=== PATIENT | male | born 1950 | race Caucasian/White ===

== ENCOUNTER 2021-12-07 19:22 | Emergency (ER) | payer MEDICARE, OTHER, SELFPAY ==
[2021-12-07 19:23] VITALS: BP 122/71; PULSE 74; RESP 16; TEMP 36.6; O2SAT 93; BMI 18.3
[2021-12-07 19:33] VITALS: BMI 18.8
[2021-12-07 20:05] LABS: Bedside Glucose 104 mg/dL (74-106)
--- NOTE | 2021-12-07 20:21 | EKG12_ITS ---
Test Reason : DYSRHYTHMIA Blood Pressure : / mmHG Vent. Rate : 069 BPM Atrial Rate : 069 BPM P-R Int : 256 ms QRS Dur : 080 ms QT Int : 382 ms P-R-T Axes : 063 075 061 degrees QTc Int : 409 ms Sinus rhythm with 1st degree A-V block Otherwise normal ECG Confirmed by ANSHU ABRAHAM, ADRIANA ([id number]), production editor ONEAL DAILY ([id number]) on 12/09/2021 10:00:48 AM Referred By: MARINE Confirmed By:INDIRA BRASHER MD
--- NOTE | 2021-12-07 20:22 | EDS_ITS ---
HPI History of Present Illness Chief Complaint: Dizziness Informant: patient and spouse/S.O. Narrative Narrative: Patient had an episode today of dizziness. He states he was lying in the bed. There were dogs there. He turned quickly to the right and then quickly to the left. After he did that he said the whole room was spinning around. It is now stopped. He had no other symptoms with this. He did not get nauseated. No numbness tingling weakness. No chest pain. No presyncope or lightheadedness. No headache. He has not had this before. He is on multiple meds. He has diabetes COPD. He is on oxygen. But he is not having any pulmonary complaints. He is not on any blood thinners. None of his meds are new or different. He feels perfectly fine at this time. PFSH PFSH Allergy/AdvReac Type Severity Reaction Status Date / Time bee venom protein (honey bee) Allergy Swelling Verified 12/07/21 19:34 fire ant Allergy Other Verified 12/07/21 19:34 tetanus and diphtheria Allergy Swelling Verified 12/07/21 19:34 toxoids codeine AdvReac Upset Verified 12/07/21 19:34 Stomach Social History Smoking Status: Current every day smoker tobacco type: cigarettes ROS ROS ED Constitutional Constitutional ED: Denies chills, fever(s) or subjective Eyes Eyes: Denies blurry vision, change in vision or diplopia ENT ENT ED: Denies rhinorrhea or sore throat Cardiovascular Cardiovascular: Denies chest pain, palpitations or racing heartbeat Respiratory/Chest Respiratory/Chest: Denies cough or dyspnea Gastrointestinal Gastrointestinal: Denies nausea or vomiting Genitourinary Genitourinary ED: Denies dysuria Musculoskeletal Musculoskeletal: Denies back pain or neck pain Integumentary Denies abscess, Abrasions or rash Neurologic Neurologic: Reports other Details: See history of present illness ; Denies headache(s), paresthesias or weakness Endocrine Endocrinology: Denies polydipsia or polyuria Hematologic/Lymphatic Hematologic/Lymphatic: Denies easy bleeding or easy bruising Allergic/Immunologic Allergic/Immunologic ED: Denies urticaria EXAM Physical Exam Const Vital Signs: 12/07/21 19:23 12/07/21 19:41 Temperature 97.9 F Temperature Source Axillary Pulse Rate 74 Respiratory Rate 16 Respiratory Pattern Normal Blood Pressure 122/71 H Blood Pressure Mean 88 Pulse Ox 93 Oxygen Delivery Method Nasal Cannula Oxygen Flow Rate (L/min) 3 Positive well nourished and well developed Constitutional Narrative: Patient is overall thin. Denies recent weight loss though. General Appearance ED: well developed and NAD HEENT Reports moist mucous membranes Eyes EOMs intact bilaterally Eyes Narrative: Patient can look left and right. I can have them turn head completely left and right. He states his symptoms are completely gone now. Neck supple and no JVD Resp normal respiratory effort Auscultation: Negative for rales, rhonchi or wheezes Cardio regular rate and regular rhythm GI normal to inspection, nondistended, normoactive bowel sounds and non-tender Back/Spine no CVA tenderness Extremity Extremity Narrative: Trace edema at the ankles which he states is chronic and unchanged Neuro oriented x3 Neuro Narrative: Patient is awake alert and oriented x3. Coordination. Normal sensation and strength. I can have him sit up turn left and right and none of this reproduces his symptoms at this time. He states his symptoms are resolved. Sensorium / Orientation: alert Psych mental status grossly normal Skin no rashes or lesions noted MDM MDM MDM Narrative Medical decision making narrative: Patient CBC shows normal hemoglobin white count and platelets. Electrolytes are overall unremarkable. Glucose is only minimally up. CT shows no acute process. Patient has been up walking to the bathroom. He feels totally asymptomatic. I think we can get him home. We did discuss about multiple symptoms that would bring him back. They are okay with this plan and he wants to go home. Lab Data Attestation: I reviewed the patient's lab results. Labs: Laboratory Results - last 24 hr 12/07/21 12/07/21 12/07/21 19:38 20:35 20:35 WBC 6.2 RBC 3.93 L Hgb 13.4 Hct 40.0 MCV 101.8 H MCH 34.1 H MCHC 33.5 RDW Std Deviation 61.2 H RDW Coeff of Sulema 16.1 H Plt Count 267 MPV 8.7 Immature Gran % (Auto) 0.300 Neut % (Auto) 68.1 Lymph % (Auto) 19.8 Gregg % (Auto) 10.4 H Eos % (Auto) 0.7 Baso % (Auto) 0.7 Absolute Neuts (auto) 4.2 Absolute Lymphs (auto) 1.22 Nucleated RBC % 0 Sodium 138 Potassium 4.6 Chloride 102 Carbon Dioxide 32.0 Anion Gap 4 L BUN 25 H Creatinine 0.91 Estim Creat Clear Calc 59.00 Est GFR (MDRD) Af Amer 105 Est GFR (MDRD) Non-Af 86 BUN/Creatinine Ratio 27.4 H Glucose 114 H Calcium 8.9 POC Glucose 104 Radiography Diagnostic Testing: Clinical Impression(s) from Imaging Studies Brain CT 12/07/21 20:45 IMPRESSION: No acute findings. Microvascular ischemic changes. Atrophy. Electronically Signed: Natalie Mckeon MD at 21:14 EDT Reading Location ID and State: [id number] / Tel , Service support , Discharge Plan Triage Chief Complaint: Dizziness ED Provider: Dirk Melton Dx/Rx/DC Orders Clinical Impression: Vertigo Instructions: ED BPV Vertigo Primary Care Provider: Care Physician,No Primary Referrals: Zafar Mir MD [Med Staff - Digital Developer] - 3-5 Days NOT,DEFINED [Non-Staff] - Disposition Disposition: Home, Self Care
[2021-12-07 20:42] LABS: Absolute Lymphocyte Count 1.22 X10^3/uL (0.83-4.51); Absolute Neutrophil Count 4.2 X10^3/uL (2.0-7.7); Basophil# 0.04 X10^3/uL; Basophil% 0.7 % (0-1); Eosinophil# 0.04 X10^3/uL; Eosinophils% 0.7 % (0-5); Hemoglobin 13.4 g/dL (13.0-16.5); Lymphocyte # 1.22 X10^3/ul (0.83-4.51); Lymphocyte % 19.8 % (19-41); Mean Corp Hgb Conc 33.5 g/dL (32-36); Mean Corpuscular Hgb 34.1 pg (27.0-32.0); Mean Corpuscular Volume 101.8 fL (80-94); Mean Platelet Vol. 8.7 fl (6.2-12.0); Monocyte# 0.64 X10^3/uL; Monocyte% 10.4 % (0-10); NRBC Flagged by Analyzer 0 % (0-5); Neutrophil # 4.19 X10^3/uL (2.7-7.7); Neutrophil % 68.1 % (47-70); Platelet Count 267 K/mm3 (150-450); RBC Distribution Width CV 16.1 % (11.6-14.6); RBC Distribution Width SD 61.2 fl (35.1-43.9); Red Blood Count 3.93 M/mm3 (4.6-6.2); White Blood Count 6.2 K/mm3 (4.4-11.0)
--- NOTE | 2021-12-07 20:45 | CT_ITS ---
STUDY: CT BRAIN WITHOUT CONTRAST REASON FOR EXAM: Male, 71 years old. Dizzy RADIATION DOSAGE (If Supplied By Facility): CTDIvol = ( 44.99 ) mGy, DLP = ( 829.85 ) mGycm TECHNIQUE: Transaxial CT imaging of the brain was performed without administration of intravenous contrast material. Individualized dose optimization techniques were used for this CT. COMPARISON: No relevant priors. FINDINGS: Normal soft tissue structures. Normal calvarium. There is mild cerebral atrophy with widening of the extra-axial spaces and ventricular dilatation. There are areas of decreased attenuation within the white matter tracts of the supratentorial brain, consistent with microvascular disease changes. There is no intracranial hemorrhage. There are no findings of an acute ischemic infarction. Normal visualized paranasal sinuses. CT/Brain/Head without Contrast IMPRESSION: No acute findings. Microvascular ischemic changes. Atrophy. Electronically Signed: Natalie Mckeon MD at 21:14 EDT Reading Location ID and State: [id number] / Tel , Service support ,
[2021-12-07 21:21] LABS: Anion Gap 4 (5-15); BUN 25 mg/dL (7-18); BUN/Creat Ratio 27.4 RATIO (10-20); Calcium,Total 8.9 mg/dL (8.5-10.1); Chloride 102 mmol/L (98-107); Creatinine, Serum 0.91 mg/dL (0.70-1.30); EST Glomerular Filtration Rate 86 mL/min (>60); Est Glom Filt Rate - Afr Amer 105 mL/min (>60); Glucose 114 mg/dL (74-106); Potassium 4.6 mmol/L (3.5-5.1); Sodium Level 138 mmol/L (136-145)
[2021-12-07 22:23] VITALS: PULSE 71; RESP 18; O2SAT 97
== END 2021-12-07 22:23 | disposition home or self-care (01) ==
PROVIDERS: Emergency Provider Emergency Medicine; Visit Provider Emergency Medicine
DX: R42 Dizziness and giddiness (principal); J44.9 Chronic obstructive pulmonary disease, unspecified; E11.9 Type 2 diabetes mellitus without complications; F17.210 Nicotine dependence, cigarettes, uncomplicated
CPT/HCPCS: 70450; 80048; 82962; 85025; 93005; 99282; A4216

== ENCOUNTER → 2021-12-20 | Outpatient (CLI) | payer MEDICARE, OTHER, SELFPAY ==
[2021-12-20 17:09] LABS: Absolute Lymphocyte Count 1.81 X10^3/uL (0.83-4.51); Absolute Neutrophil Count 3.8 X10^3/uL (2.0-7.7); Basophil# 0.03 X10^3/uL; Basophil% 0.5 % (0-1); Eosinophil# 0.08 X10^3/uL; Eosinophils% 1.3 % (0-5); Hematocrit 42.9 % (40-54); Hemoglobin 14.3 g/dL (13.0-16.5); Lymphocyte # 1.81 X10^3/ul (0.83-4.51); Lymphocyte % 28.3 % (19-41); Mean Corp Hgb Conc 33.3 g/dL (32-36); Mean Corpuscular Hgb 34.1 pg (27.0-32.0); Mean Corpuscular Volume 102.4 fL (80-94); Mean Platelet Vol. 9.2 fl (6.2-12.0); Monocyte# 0.68 X10^3/uL; Monocyte% 10.6 % (0-10); NRBC Flagged by Analyzer 0 % (0-5); Neutrophil # 3.78 X10^3/uL (2.7-7.7); Neutrophil % 59.1 % (47-70); Platelet Count 245 K/mm3 (150-450); RBC Distribution Width CV 14.3 % (11.6-14.6); RBC Distribution Width SD 54.3 fl (35.1-43.9); Red Blood Count 4.19 M/mm3 (4.6-6.2); White Blood Count 6.4 K/mm3 (4.4-11.0)
[2021-12-20 17:53] LABS: ALB/GLOB Ratio 0.7 RATIO (0.9-2.4); AST(SGOT) 27 U/L (15-37); Alanine Aminotransfer ALT/SGPT 59 U/L (16-61); Albumin, Serum 3.2 g/dL (3.2-5.0); Alkaline Phosphatase 88 U/L (45-117); Anion Gap 6 (5-15); BUN 22 mg/dL (7-18); BUN/Creat Ratio 28.6 RATIO (10-20); Calcium,Total 8.9 mg/dL (8.5-10.1); Chloride 98 mmol/L (98-107); Creatinine, Serum 0.77 mg/dL (0.70-1.30); EST Glomerular Filtration Rate 105 mL/min (>60); Est Glom Filt Rate - Afr Amer 127 mL/min (>60); Globulin 4.3 g/dL (2.2-4.2); Glucose 89 mg/dL (74-106); Protein, Total 7.5 g/dL (6.4-8.2); Sodium Level 136 mmol/L (136-145); Thyroid Stim Hormone (TSH) 0.85 uIU/mL (0.358-3.74)
[2021-12-20 18:49] LABS: Hepatitis C Antibody Non-Reactive (Nonreactive); Vitamin D,25 Hydroxy 56.7 ng/mL
== END | disposition home or self-care (01) ==
LOC: POLAB3 14:28
PROVIDERS: PCP Family Medicine Geriatric Medicine; Visit Provider Family Medicine Geriatric Medicine
DX: E55.9 Vitamin D deficiency, unspecified (principal); R53.83 Other fatigue; Z13.89 Encounter for screening for other disorder
CPT/HCPCS: 36415; 80053; 82306; 84443; 85025; 86803

== ENCOUNTER 2021-12-30 18:54 | Emergency (ER) | payer MEDICARE, OTHER, SELFPAY ==
[2021-12-30 18:55] VITALS: BP 147/83; PULSE 90; RESP 16; TEMP 35.7; O2SAT 98; BMI 18.8
[2021-12-30 19:45] LABS: Mucous, Urine 0 SEEN /hpf (<or=2+)
[2021-12-30 19:48] LABS: Color, Urine Yellow (Yellow); Glucose, Dipstick Normal (Normal); Ketone-Dipstick 5 mg/dl (Negative); Leukocyte Esterase-Dipstick 500 /ul (Negative); Nitrite-Dipstick Positive (Negative); Occult Blood-Urine 250 /ul (Negative); Protein-Dipstick 100 mg/dl (Negative); Urine Bilirubin Dipstick Negative (Negative); Urine Clarity Cloudy (Clear); Urine Urobilinogen Normal (Normal)
[2021-12-30 19:58] LABS: Bacteria 4+ /hpf (None Seen); Red Blood Cells-Urine 10-25 SEEN /hpf (0-5); Squamous Epithelial Cells - UA 0-5 SEEN /hpf (0-5); White Blood Cells >100 SEEN /hpf (0-5)
[2021-12-30 19:59] LABS: Triple Phosphate Crystals Ur 2+ /hpf (<or=1+)
[2021-12-30] MEDS: Cephalexin 250 MG Capsule 500 MG PO (20:35)
--- NOTE | 2021-12-30 20:42 | EDS_ITS ---
HPI History of Present Illness Chief Complaint: Complaint Narrative Narrative: Patient with past medical history of tremors, on buspirone presents with urinary frequency that he has had for the last few days. He states he also has burning with urination. No fevers or chills. No nausea or vomiting. No other symptoms. PFSH PFSH Medical History COPD (chronic obstructive pulmonary disease) CPAP (continuous positive airway pressure) dependence Depression Diabetes Kidney stones Sleep apnea Smoker Home Medications cephalexin 500 mg capsule 500 mg PO TID #21 caps 12/30/21 [Rx Last Taken Unknown] Allergy/AdvReac Type Severity Reaction Status Date / Time bee venom protein (honey bee) Allergy Swelling Verified 12/30/21 18:54 fire ant Allergy Other Verified 12/30/21 18:54 tetanus and diphtheria Allergy Swelling Verified 12/30/21 18:54 toxoids codeine AdvReac Upset Verified 12/30/21 18:54 Stomach Social History Smoking Status: Current every day smoker tobacco type: cigarettes ROS ROS ED ROS Narrative Constitutional: No fever, no chills. HEENT: No sore throat. No neck pain. No loss of vision. No rhinorrhea. Cardiovascular: No chest pain. No palpitations. No pedal edema. Respiratory: No cough, no shortness of breath. Abdominal: No abdominal pain. No nausea. No vomiting. Genitourinary: Urinary frequency. Burning with urination. No testicular pain. Musculoskeletal: No myalgias. No arthralgias. Neurologic: No headaches. No dizziness. No lightheadedness. Skin: No rash. No change in color. Psychiatric: No depression. No anxiety. EXAM Physical Exam Narrative Exam Narrative: Afebrile. Vital signs noted. HEENT: Normocephalic. Atraumatic. PERRL, EOMI. Neck soft and supple. No point tenderness or step off. Cardiovascular: Regular rate and rhythm. No murmurs, rubs, or gallops appreciated. Respiratory: No tachypnea. Lungs clear to auscultation bilaterally. Gastrointestinal: Abdomen soft, nontender, with normoactive bowel sounds. No rebound or guarding. Neurological: Awake. Alert. Nonfocal, nonlateralizing. Skin: No rash. Normal color. No pallor. Musculoskeletal: No pedal edema. Full range of motion extremities. Const Vital Signs: 12/30/21 18:55 Temperature 96.3 F L Temperature Source Temporal Pulse Rate 90 Respiratory Rate 16 Blood Pressure 147/83 H Blood Pressure Mean 104 Pulse Ox 98 Oxygen Delivery Method Room Air MDM MDM MDM Narrative Medical decision making narrative: Urinalysis was obtained. He has greater than 100 WBCs with 10-25 RBCs and 4+ bacteria. It is nitrate positive. This was sent for culture. He will be treated with Keflex and given his first dose here in the emergency department and a prescription written to take 3 times daily for the next 7 days. He will follow-up with his primary care physician. Return instructions to the emergency department were reviewed. Disposition is discharged home in stable condition. Lab Data Attestation: I reviewed the patient's lab results. Labs: Laboratory Results - last 24 hr 12/30/21 19:35 Urine Color Yellow Urine Clarity Cloudy Urine pH 8.0 Ur Specific [place] 1.010 Urine Protein 100 H Urine Glucose (UA) Normal Urine Ketones 5 H Urine Occult Blood 250 H Urine Nitrite Positive H Urine Bilirubin Negative Urine Urobilinogen Normal Ur Leukocyte Esterase 500 H Urine RBC 10-25 SEEN Urine WBC >100 SEEN Ur Squamous Epith Cells 0-5 SEEN Triple Phos Crystals 2+ Urine Bacteria 4+ Urine Mucus 0 SEEN Discharge Plan Triage Chief Complaint: Complaint ED Provider: Sheldon Will Dx/Rx/DC Orders Clinical Impression: UTI (urinary tract infection), Urinary frequency Instructions: ED Bladder Infection, Male (Adult) Prescriptions: New cephalexin 500 mg capsule 500 mg PO TID Qty: 21 0RF Primary Care Provider: Damon Mayes Chi Referrals: Damon Mayes Chi, MD [Primary Care Provider] - 3-5 Days if not improving Disposition Disposition: Home, Self Care
[2021-12-30 21:16] VITALS: BP 145/83; PULSE 89; RESP 15; O2SAT 98
== END 2021-12-30 21:17 | disposition home or self-care (01) ==
LOC: ED 20:41
PROVIDERS: Emergency Provider Emergency Medicine; PCP Family Medicine Geriatric Medicine; Visit Provider Emergency Medicine
DX: N39.0 Urinary tract infection, site not specified (principal); J44.9 Chronic obstructive pulmonary disease, unspecified; E11.9 Type 2 diabetes mellitus without complications; F17.210 Nicotine dependence, cigarettes, uncomplicated; Z87.442 Personal history of urinary calculi
CPT/HCPCS: 81001; 87077; 87086; 87088; 87186; 99283

== ENCOUNTER → 2022-01-16 | Outpatient (CLI) | payer MEDICARE, OTHER, SELFPAY | END | disposition home or self-care (01) | PROVIDERS: PCP Family Medicine Geriatric Medicine; Visit Provider Family Medicine Geriatric Medicine | DX: N39.0 Urinary tract infection, site not specified (principal) | CPT/HCPCS: 87077; 87086; 87088; 87186 ==

== ENCOUNTER → 2022-01-26 | Outpatient (CLI) | payer MEDICARE, OTHER, SELFPAY ==
--- NOTE | 2022-01-26 12:47 | CT_ITS ---
STUDY: LOW DOSE CT LUNG CANCER SCREENING REASON FOR EXAM: Male, 72 years old. TOBACCO DEPEND ENC SYNDROME. Patient smoked 1.5 packs per day for 35 years. RADIATION DOSAGE (If Supplied By Facility): CTDIvol = ( 1.56 ) mGy, DLP = ( 52.93 ) mGycm TECHNIQUE: No contrast was administered. Low dose technique was utilized (average mAS-38 and kVp 120). 1.25 mm axial source images with a slice interval of 1.25-mm were reconstructed in lung windows. 2.5 mm axial source images with a slice interval of 2.5-mm were reconstructed in lung windows. 5.0 mm axial source images with a slice interval of 5.0-mm were reconstructed in soft tissue windows. COMPARISON: None. NODULES: No suspicious nodules are seen. Emphysema: Hyperinflation. Diffuse emphysematous changes with centrilobular emphysema more prominent in the upper lobes. Mild increase in linear markings in the posterior aspect of the right upper lobe suggestive of a scarring. There is also evidence of mild scarring at the lung bases Endobronchial lesion: None Aorta: Atherosclerotic plaque formation of the aortic arch. CORONARY ARTERIES: Coronary artery calcification is seen. Heart: Pulmonary artery: Mediastinal nodes: Calcified right hilar and subcarinal carinal lymph nodes. Other chest and abdominal findings: CT/Low Dose CT Lung Screening IMPRESSION: Lung-RADS category 2 - Continue annual screening with LDCT in 12 months. IMPORTANT NOTES FOR USE: ACR Lung-RADS Version 1.1 Assessment Categories Release Date: 2018 Category: Coded 0-4 bases on nodule(s) with highest degree of suspicion. Negative screen is defined as categories 1 and 2; a positive screen is defined as categories 3 and 4. Category 3 and 4A nodules that are unchanged on interval CT should be coded as category 2, and individuals returned to screening in 12 months. Category 4X: Category 3 or 4 nodules with additional imaging findings that increase the suspicion of lung cancer, such as spiculation, GGN that doubles in size in 1 year, enlarged lymph notes, etc. Category Modifiers: S (significant finding unrelated to lung cancer) Electronically Signed: José Rosen MD at 13:52 EDT ,
== END | disposition home or self-care (01) ==
LOC: CT 12:40
PROVIDERS: PCP Family Medicine Geriatric Medicine; Referring Provider Family Medicine Geriatric Medicine; Visit Provider Family Medicine Geriatric Medicine
DX: Z12.2 Encounter for screening for malignant neoplasm of respiratory organs (principal); F17.210 Nicotine dependence, cigarettes, uncomplicated
CPT/HCPCS: 71271

== ENCOUNTER → 2022-02-13 | Outpatient (CLI) | payer MEDICARE, OTHER, SELFPAY ==
--- NOTE | 2022-02-13 07:42 | AAAS_ITS ---
Reason For Study: AAA Screening Aorta Measurements Aorta Doppler Measurements Proximal aorta measures1.96 x 1.99cm. in cross- Peak systolic flow velocities within the proximal sectional axis. aorta measure 88.6 cm/sec. Proximal aorta measures1.99cm. in longitudinal Peak systolic flow velocities within the mid aorta axis. measure 68.7 cm/sec. Mid aorta measures2.06 x 2.04cm. in cross- Peak systolic flow velocities within the distal sectional axis. aorta measure 56.0 cm/sec. Mid aorta measures2.03cm. in longitudinal axis. Distal aorta measures1.64 x 1.69cm. in cross- sectional axis. Distal aorta measures1.67cm. in longitudinal axis. Left Iliac Artery Left iliac artery measures 1.13 x 1.11 cm. in the cross-sectional axis. Left iliac artery measures 1.16 cm. in the longitudinal axis. Peak systolic velocity in the left iliac artery measures 56.0 cm/sec. Right Iliac Artery Right iliac artery measures 1.03 x 1.04 cm. in the cross-sectional axis. Right iliac artery measures 0.93 cm. in the longitudinal axis. Peak systolic velocity in the right iliac artery measures 66.9 cm/sec. Procedure Aorta IVC Iliac vasculature or bypass grafts [id number]. The exam was diagnostic. Exam performed in department. VL/AAA Screening Interpretation Summary Irregular plaque involving the abdominal aorta with maximal diameter in the mid abdominal aorta at 2.06 x 2.04 cm in diameter. No evidence for aortic aneurysm. Normal flow rate i dentified. Left common iliac measures 1.13 x 1.11 cm in diameter which is normal Right common neck measures 1.03 x 1.04 cm in diameter which is normal Ordering Physician: Damon Mayes Chi Referring Physician: Damon Mayes Chi Performed By: Jones Cheung RVRen
== END | disposition home or self-care (01) ==
LOC: CVS 07:36
PROVIDERS: PCP Family Medicine Geriatric Medicine; Referring Provider Family Medicine Geriatric Medicine; Visit Provider Family Medicine Geriatric Medicine
DX: Z13.6 Encounter for screening for cardiovascular disorders (principal)
CPT/HCPCS: 76706

== ENCOUNTER → 2022-03-22 | Outpatient (CLI) | payer MEDICARE, OTHER, SELFPAY ==
[2022-03-22 17:06] LABS: Absolute Lymphocyte Count 2.02 X10^3/uL (0.83-4.51); Absolute Neutrophil Count 2.8 X10^3/uL (2.0-7.7); Basophil# 0.06 X10^3/uL; Basophil% 1.1 % (0-1); Eosinophils% 1.8 % (0-5); Hematocrit 42.9 % (40-54); Hemoglobin 14.8 g/dL (13.0-16.5); Lymphocyte # 2.02 X10^3/ul (0.83-4.51); Lymphocyte % 36.1 % (19-41); Mean Corp Hgb Conc 34.5 g/dL (32-36); Mean Corpuscular Hgb 34.5 pg (27.0-32.0); Mean Platelet Vol. 9.1 fl (6.2-12.0); Monocyte# 0.65 X10^3/uL; Monocyte% 11.6 % (0-10); NRBC Flagged by Analyzer 0 % (0-5); Neutrophil # 2.75 X10^3/uL (2.7-7.7); Platelet Count 285 K/mm3 (150-450); RBC Distribution Width CV 15.8 % (11.6-14.6); RBC Distribution Width SD 58.4 fl (35.1-43.9); Red Blood Count 4.29 M/mm3 (4.6-6.2); White Blood Count 5.6 K/mm3 (4.4-11.0)
[2022-03-22 18:19] LABS: ALB/GLOB Ratio 0.8 RATIO (0.9-2.4); AST(SGOT) 15 U/L (15-37); Alanine Aminotransfer ALT/SGPT 32 U/L (16-61); Albumin, Serum 3.3 g/dL (3.2-5.0); Alkaline Phosphatase 100 U/L (45-117); Anion Gap 4 (5-15); BUN 18 mg/dL (7-18); BUN/Creat Ratio 17.8 RATIO (10-20); Calcium,Total 8.9 mg/dL (8.5-10.1); Chloride 101 mmol/L (98-107); Creatinine, Serum 1.01 mg/dL (0.70-1.30); EST Glomerular Filtration Rate 77 mL/min (>60); Est Glom Filt Rate - Afr Amer 93 mL/min (>60); Glucose 129 mg/dL (74-106); Potassium 4.7 mmol/L (3.5-5.1); Protein, Total 7.3 g/dL (6.4-8.2); Sodium Level 136 mmol/L (136-145)
== END | disposition home or self-care (01) ==
PROVIDERS: PCP Family Medicine Geriatric Medicine; Visit Provider Family Medicine Geriatric Medicine
DX: E55.9 Vitamin D deficiency, unspecified (principal); E11.65 Type 2 diabetes mellitus with hyperglycemia; R53.83 Other fatigue
CPT/HCPCS: 36415; 80053; 82306; 84443; 85025

== ENCOUNTER → 2022-06-21 | Outpatient (CLI) | payer MEDICARE, OTHER, SELFPAY ==
--- NOTE | 2022-06-21 16:03 | MRI_ITS ---
STUDY: MRI BRAIN WITH AND WITHOUT CONTRAST REASON FOR EXAM: Male, 72 years old. LT HOMONYMOUS VISUAL FIELD DEFECT, R/O CVA, MASS TECHNIQUE: Standardized multiplanar fat and water weighted pulse sequences were obtained. 12ML IV CLARISCAN was administered for the contrast portion of the examination. COMPARISON: CT brain December 07, 2021 FINDINGS: There is moderate cerebral atrophy with widening of the extra-axial spaces and ventricular dilatation. There are multiple white matter hyperintensities, distributed throughout the deep white matter tracts of the cerebral hemispheres, consistent with moderate chronic white matter ischemic changes. There is no evidence for recent intracranial ischemia or other cause of cytotoxic edema on diffusion weighted imaging (DWI). Normal bilateral basal ganglia. Normal thalami. There is no extra-axial fluid accumulation. Normal flow voids within the major intracranial circulation suggesting patency by spin echo criteria. Normal venous enhancement. There is no enhancing intra-axial or extra-axial abnormality. Normal sella turcica, pituitary gland, infundibular stalk, optic chiasm and hypothalamus. Normal tectal plate and pineal gland. Ill-defined T2 lengthening throughout the dominique. Normal cerebellum. Normal basal cisterns. Normal bilateral temporal bones. Normal bilateral internal auditory canals. No demonstrated orbital abnormality, within the constraints of a routine brain study. Normal visualized paranasal sinuses. Normal calvarium and skull base. Normal visualized soft tissue structures. Normal visualized upper cervical spine. MRI/Brain W/WO Contrast IMPRESSION: T2 lengthening within the dominique consistent with micro-angiopathic changes. Consider also pontine osmotic myelolysis. Other etiologies not excluded. Involutional changes of the brain, as described above. Electronically Signed: Charles Holm MD at 0:00 EDT ,
[2022-06-21 16:35] LABS: CREATININE FINGERSTICK < 0.9 mg/dL (0.70-1.30); EGFR FINGERSTICK > 60.0000 mL/min (>60)
== END | disposition home or self-care (01) ==
LOC: MRI 15:55
PROVIDERS: PCP Family Medicine Geriatric Medicine; Referring Provider Ophthalmology; Visit Provider Ophthalmology
DX: H53.462 Homonymous bilateral field defects, left side (principal)
CPT/HCPCS: 70553; A9575

== ENCOUNTER → 2022-06-26 | Outpatient (CLI) | payer MEDICARE, OTHER, SELFPAY ==
[2022-06-26 14:34] LABS: Absolute Lymphocyte Count 1.52 X10^3/uL (0.83-4.51); Absolute Neutrophil Count 2.9 X10^3/uL (2.0-7.7); Basophil# 0.04 X10^3/uL; Basophil% 0.8 % (0-1); Eosinophil# 0.06 X10^3/uL; Eosinophils% 1.2 % (0-5); Hemoglobin 15.8 g/dL (13.0-16.5); Lymphocyte # 1.52 X10^3/ul (0.83-4.51); Lymphocyte % 29.6 % (19-41); Mean Corp Hgb Conc 33.6 g/dL (32-36); Mean Corpuscular Hgb 33.6 pg (27.0-32.0); Mean Platelet Vol. 9.1 fl (6.2-12.0); Monocyte# 0.61 X10^3/uL; Monocyte% 11.9 % (0-10); NRBC Flagged by Analyzer 0 % (0-5); Neutrophil % 56.3 % (47-70); Platelet Count 268 K/mm3 (150-450); RBC Distribution Width CV 14.1 % (11.6-14.6); RBC Distribution Width SD 52.5 fl (35.1-43.9); White Blood Count 5.1 K/mm3 (4.4-11.0)
[2022-06-26 15:14] LABS: Vitamin D,25 Hydroxy 56.5 ng/mL
[2022-06-26 15:23] LABS: ALB/GLOB Ratio 0.9 RATIO (0.9-2.4); AST(SGOT) 23 U/L (15-37); Alanine Aminotransfer ALT/SGPT 33 U/L (16-61); Albumin, Serum 3.5 g/dL (3.2-5.0); Alkaline Phosphatase 104 U/L (45-117); Anion Gap 1 (5-15); BUN 17 mg/dL (7-18); BUN/Creat Ratio 16.5 RATIO (10-20); Chloride 102 mmol/L (98-107); Creatinine, Serum 1.03 mg/dL (0.70-1.30); EST Glomerular Filtration Rate 75 mL/min (>60); Est Glom Filt Rate - Afr Amer 91 mL/min (>60); Glucose 109 mg/dL (74-106); Protein, Total 7.5 g/dL (6.4-8.2); Sodium Level 134 mmol/L (136-145); Thyroid Stim Hormone (TSH) 0.92 uIU/mL (0.358-3.74)
--- NOTE | 2022-06-27 | LES_PTH ---
PATIENT: NIKOLAI MTZ LOC: LAB U#:[id number] AGE/SX: 72/M ROOM: RE06/26/[address]: Dr. 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 Extensive solar elastosis. Parakeratosis and hyperkeratosis. Fungal organisms consistent with tinea. See comment. AM:jose 06/28/2022 COMMENT GMS stain with matched control was used in the evaluation of this case. Case has been reviewed in consultation with Dr. Bates who concurs with the above diagnosis. IDC:SJ MICROSCOPIC DESCRIPTION Slides are reviewed. GROSS DESCRIPTION Received in fixative is one container labeled with the patient's name and designated left facial cheek. The specimen consists of a piece of sheldon-white skin measuring 0.9 x 0.6 x 0.1 cm. The specimen is inked, serially sectioned and submitted entirely in one cassette. / SJ:jose 06/27/2022 TC:0 CPT: 02606, 23057
== END | disposition home or self-care (01) ==
LOC: LAB 13:54
PROVIDERS: PCP Family Medicine Geriatric Medicine; Referring Provider Family Medicine Geriatric Medicine; Visit Provider Family Medicine Geriatric Medicine
DX: E55.9 Vitamin D deficiency, unspecified (principal); E11.65 Type 2 diabetes mellitus with hyperglycemia; R53.83 Other fatigue
CPT/HCPCS: 36415; 80053; 82306; 84443; 85025; 88305; 88312

== ENCOUNTER → 2022-06-27 | Outpatient (CLI) | payer MEDICARE, OTHER, SELFPAY | END | disposition home or self-care (01) | LOC: LABSPEC 13:08 | PROVIDERS: PCP Family Medicine Geriatric Medicine; Referring Provider Family Medicine Geriatric Medicine; Visit Provider Family Medicine Geriatric Medicine | DX: L98.9 Disorder of the skin and subcutaneous tissue, unspecified (principal) ==

== ENCOUNTER → 2022-09-26 | Outpatient (CLI) | payer MEDICARE, OTHER, SELFPAY ==
[2022-09-26 17:08] LABS: Absolute Lymphocyte Count 1.43 X10^3/uL (0.83-4.51); Absolute Neutrophil Count 3.5 X10^3/uL (2.0-7.7); Basophil# 0.03 X10^3/uL; Basophil% 0.5 % (0-1); Eosinophils% 1.7 % (0-5); Hematocrit 45.2 % (40-54); Hemoglobin 15.4 g/dL (13.0-16.5); Lymphocyte # 1.43 X10^3/ul (0.83-4.51); Lymphocyte % 24.6 % (19-41); Mean Corp Hgb Conc 34.1 g/dL (32-36); Mean Corpuscular Hgb 33.7 pg (27.0-32.0); Mean Corpuscular Volume 98.9 fL (80-94); Mean Platelet Vol. 8.9 fl (6.2-12.0); Monocyte# 0.77 X10^3/uL; Monocyte% 13.3 % (0-10); NRBC Flagged by Analyzer 0 % (0-5); Neutrophil # 3.45 X10^3/uL (2.7-7.7); Neutrophil % 59.4 % (47-70); Platelet Count 265 K/mm3 (150-450); RBC Distribution Width CV 15.9 % (11.6-14.6); Red Blood Count 4.57 M/mm3 (4.6-6.2); White Blood Count 5.8 K/mm3 (4.4-11.0)
[2022-09-26 17:59] LABS: Vitamin D,25 Hydroxy 61.1 ng/mL
[2022-09-26 18:09] LABS: ALB/GLOB Ratio 0.7 RATIO (0.9-2.4); AST(SGOT) 18 U/L (15-37); Alanine Aminotransfer ALT/SGPT 25 U/L (16-61); Albumin, Serum 3.2 g/dL (3.2-5.0); Alkaline Phosphatase 109 U/L (45-117); Anion Gap 3 (5-15); BUN 23 mg/dL (7-18); BUN/Creat Ratio 20.9 RATIO (10-20); Calcium,Total 8.9 mg/dL (8.5-10.1); Chloride 103 mmol/L (98-107); EST Glomerular Filtration Rate 69 mL/min (>60); Est Glom Filt Rate - Afr Amer 84 mL/min (>60); Globulin 4.3 g/dL (2.2-4.2); Glucose 86 mg/dL (74-106); Potassium 5.3 mmol/L (3.5-5.1); Protein, Total 7.5 g/dL (6.4-8.2); Sodium Level 135 mmol/L (136-145); Thyroid Stim Hormone (TSH) 0.93 uIU/mL (0.358-3.74)
== END | disposition home or self-care (01) ==
LOC: LAB 16:58
PROVIDERS: PCP Family Medicine Geriatric Medicine; Referring Provider Family Medicine Geriatric Medicine; Visit Provider Family Medicine Geriatric Medicine
DX: E11.65 Type 2 diabetes mellitus with hyperglycemia (principal); R53.83 Other fatigue; E55.9 Vitamin D deficiency, unspecified
CPT/HCPCS: 36415; 80053; 82306; 84443; 85025

== ENCOUNTER → 2022-09-29 | Outpatient (CLI) | payer MEDICARE, OTHER, SELFPAY ==
[2022-09-29 17:20] LABS: Anion Gap 4 (5-15); BUN 18 mg/dL (7-18); BUN/Creat Ratio 16.5 RATIO (10-20); Calcium,Total 8.9 mg/dL (8.5-10.1); Chloride 102 mmol/L (98-107); Creatinine, Serum 1.09 mg/dL (0.70-1.30); EST Glomerular Filtration Rate 70 mL/min (>60); Est Glom Filt Rate - Afr Amer 85 mL/min (>60); Glucose 121 mg/dL (74-106); Potassium 4.1 mmol/L (3.5-5.1); Sodium Level 135 mmol/L (136-145)
== END | disposition home or self-care (01) ==
LOC: LAB 16:29
PROVIDERS: PCP Family Medicine Geriatric Medicine; Referring Provider Family Medicine Geriatric Medicine; Visit Provider Family Medicine Geriatric Medicine
DX: E87.5 Hyperkalemia (principal)
CPT/HCPCS: 36415; 80048

== ENCOUNTER 2022-11-08 20:19 | Inpatient (IN) | payer MEDICARE, OTHER, SELFPAY ==
[2022-11-08 20:22] VITALS: BP 121/76; PULSE 90; RESP 16; TEMP 36.6; O2SAT 91
[2022-11-08 21:28] LABS: Absolute Lymphocyte Count 0.84 X10^3/uL (0.83-4.51); Absolute Neutrophil Count 11.5 X10^3/uL (2.0-7.7); Basophil# 0.02 X10^3/uL; Basophil% 0.2 % (0-1); Hematocrit 49.6 % (40-54); Hemoglobin 17.3 g/dL (13.0-16.5); Lymphocyte # 0.84 X10^3/ul (0.83-4.51); Lymphocyte % 6.3 % (19-41); Mean Corp Hgb Conc 34.9 g/dL (32-36); Mean Corpuscular Volume 97.4 fL (80-94); Mean Platelet Vol. 9.2 fl (6.2-12.0); Monocyte# 0.94 X10^3/uL; Monocyte% 7.1 % (0-10); NRBC Flagged by Analyzer 0 % (0-5); Neutrophil # 11.48 X10^3/uL (2.7-7.7); Platelet Count 225 K/mm3 (150-450); RBC Distribution Width SD 54.5 fl (35.1-43.9); Red Blood Count 5.09 M/mm3 (4.6-6.2); White Blood Count 13.3 K/mm3 (4.4-11.0)
[2022-11-08 21:42] LABS: Anion Gap 4 (5-15); BUN 19 mg/dL (7-18); BUN/Creat Ratio 19.2 RATIO (10-20); Calcium,Total 9.8 mg/dL (8.5-10.1); Chloride 101 mmol/L (98-107); Creatinine, Serum 0.99 mg/dL (0.70-1.30); EST Glomerular Filtration Rate 78 mL/min (>60); Est Glom Filt Rate - Afr Amer 95 mL/min (>60); Glucose 161 mg/dL (74-106); Potassium 4.8 mmol/L (3.5-5.1); Sodium Level 136 mmol/L (136-145)
[2022-11-08 22:00] VITALS: BMI 18.4
--- NOTE | 2022-11-08 22:06 | CT_ITS ---
EXAM: CT ABDOMEN AND PELVIS WITH INTRAVENOUS CONTRAST CLINICAL INDICATION: abdominal pain TECHNIQUE: Helically acquired images were obtained of the abdomen and pelvis with intravenous contrast. This CT exam was performed using one or more of the following dose reduction techniques: automated exposure control, adjustment of the mA and/or kV according to patient size, and/or use of iterative reconstruction technique. CONTRAST: IV 100mL Isovue-370 RADIATION DOSE: CTDIvol = 12.72 mGy, DLP = 596.41 mGy-cm COMPARISON: No relevant prior studies available. FINDINGS: LIMITATIONS: Exam is limited by improper positioning of patient''s arms resulting in significant streak artifact. LOWER THORAX: Marked expansion of the visualized lower chest indicating severe COPD. No cardiomegaly. No significant pericardial effusion. ABDOMEN: LIVER: Marked hepatomegaly. No evidence for mass. GALLBLADDER AND BILE DUCTS: Cholelithiasis. Dilated common bile duct. Correlate with liver function tests. No gallbladder distention or wall edema. PANCREAS: Unremarkable. No focal cystic or solid mass. SPLEEN: Small irregular spleen. No focal cystic or solid mass. ADRENALS: Unremarkable. No nodules. KIDNEYS AND URETERS: Unremarkable. Normal renal size and position. No hydronephrosis. STOMACH AND BOWEL: Evaluation of the GI tract is limited by absence of oral contrast. Cannot exclude stomach wall thickening. Prominent gastric folds, possible gastritis. No dilated loops of bowel or evidence for obstruction. Cannot exclude segmental thickening of the carmichael of the small or large bowel. Cannot exclude enteritis or colitis. Moderate diffuse fecal retention. Appendix within normal limits. PELVIS: APPENDIX: No evidence of acute appendicitis. BLADDER: Marked distention of the bladder. REPRODUCTIVE: Marked enlargement of the prostate. ABDOMEN and PELVIS: INTRAPERITONEAL SPACE: Unremarkable. No ascites or other fluid collection. No free air. BONES/JOINTS: Unremarkable. No suspicious lytic or blastic abnormality. SOFT TISSUES: Unremarkable. No discrete abdominal or pelvic wall hernia. VASCULATURE: Heavily calcified tortuous and ectatic aorta with no aneurysm. LYMPH NODES: Unremarkable. No enlarged lymph nodes. CT/Abdomen/Pelvis W IV Cont ONLY IMPRESSION: 1. Significantly limited as above. 2. Significantly limited evaluation of GI tract without oral contrast. Abnormalities such as enteritis and/or colitis are not excluded. No obstruction. Moderate diffuse fecal retention. 3. Bladder is markedly distended, and there is markedly large prostate gland. 4. Cholelithiasis. Dilated common bile duct. Correlate with liver function tests. Electronically Signed: Alhaji Pickett MD at 22:39 EDT ,
--- NOTE | 2022-11-08 22:19 | ED.VIS.GI ---
HPI HPI - GI History of Present Illness Chief Complaint: GI Bleed Narrative Narrative: 72-year-old male presenting with diarrhea. He states he had an on and off for 6 months. Today started having blood in his stool. He has more cramping. He does not have any nausea or vomiting. No fever or chills. Patient not on any blood thinners. No history of diverticulitis. No history of abdominal surgeries. He does report that he has had 47 pounds of weight loss since moving here from [place]. He states it was initially due to some vertigo which made it very hard for him to eat. He is not experiencing vertigo tonight. PFSH PFSH Medical History Anxiety and depression COPD (chronic obstructive pulmonary disease) Diabetes mellitus, type 2 Essential tremor Kidney stones MIGUEL A on CPAP Tobacco use Home Medications albuterol sulfate 90 mcg/actuation aerosol inhaler 2 inh inhalation Q4H PRN SOB 11/08/22 [History Last Taken Unknown] bupropion HCl 150 mg tablet,12 hr sustained-release 150 mg PO Q12H 11/08/22 [History Last Taken Unknown] gabapentin 300 mg capsule 300 mg PO QHS 11/08/22 [History Last Taken Unknown] latanoprost 0.005 % eye drops 1 drp ophthalmic (eye) QHS 11/08/22 [History Last Taken Unknown] primidone 50 mg tablet 50 mg PO Q12H 11/08/22 [History Last Taken Unknown] tamsulosin 0.4 mg capsule 0.4 mg PO Q24H 11/08/22 [History Last Taken Unknown] umeclidinium 62.5 mcg-vilanterol 25 mcg/actuation powdr for inhalation (Anoro Ellipta) 1 inh inhalation Q24H 11/08/22 [History Last Taken Unknown] Allergy/AdvReac Type Severity Reaction Status Date / Time bee venom protein (honey bee) Allergy Swelling Verified 11/08/22 20:24 fire ant Allergy Other Verified 11/08/22 20:24 tetanus and diphtheria Allergy Swelling Verified 11/08/22 20:24 toxoids codeine AdvReac Upset Verified 11/08/22 20:24 Stomach Family History (Updated 11/08/22 @ 23:[address] Irina Sanchez MD) Mother Heart disease Breast cancer CHF (congestive heart failure) Father Throat cancer History tobacco use concurrently, possibly chew. Surgical History (Updated 11/08/22 @ 23:[address] Irina Sanchez MD) History of skin surgery Social History (Updated 11/08/22 @ 23:[address] Irina Sanchez MD) household members: spouse Smoking Status: Current every day smoker tobacco type: cigarettes Smoking packs per day: 1.5 Smoking cigarettes per day: 30.0 Years smoked: 59 Smoking pack-years: 88.50 alcohol intake: never substance use type: does not use ROS ROS ED Constitutional Constitutional ED: Denies chills, fever(s) or sweats Eyes Eyes: Denies blurry vision or change in vision ENT ENT ED: Denies ear pain or sore throat Cardiovascular Cardiovascular: Denies chest pain, palpitations or racing heartbeat Respiratory/Chest Respiratory/Chest: Denies cough, dyspnea or sputum Gastrointestinal Gastrointestinal: Denies abdominal pain, constipation, diarrhea, nausea or vomiting Genitourinary Genitourinary ED: Denies dysuria, hematuria or urinary frequency Musculoskeletal Musculoskeletal: Denies arthralgias, myalgias or neck pain Integumentary Denies abscess, Abrasions or rash Neurologic Neurologic: Denies headache(s), paresthesias or weakness Psychiatric Psychiatric: Denies anxiety, depression, suicidal ideation or suicidal thoughts Endocrine Endocrinology: Denies polydipsia or polyuria EXAM Physical Exam Const Vital Signs: 11/08/22 20:22 11/08/22 22:21 11/08/22 22:56 Temperature 97.8 F Temperature Source Temporal Pulse Rate 90 81 Respiratory Rate 16 14 Blood Pressure 121/76 H 135/82 H Blood Pressure Mean 91 99 Pulse Ox 91 97 Oxygen Delivery Method Room Air Room Air Positive well nourished General Appearance ED: NAD; Negative for pallor HEENT Reports moist mucous membranes normocephalic and atraumatic Eyes PERRL and EOMs intact bilaterally Resp normal respiratory effort and clear to auscultation bilaterally Auscultation: Negative for rales, rhonchi or wheezes Cardio regular rate and regular rhythm GI GI Narrative: No focal area of tenderness. Palpation: Negative for guarding or rigid Back/Spine no CVA tenderness Neuro CN's II-XII intact bilaterally Sensorium / Orientation: alert Motor Exam: strength 5/5 throughout Psych mental status grossly normal and thought process normal Skin General Skin Exam: Negative for jaundice or pallor MDM MDM MDM Narrative Medical decision making narrative: Patient with chronic diarrhea presenting with GI bleed and 47 pound weight loss since he moved here from [place]. Differential includes dehydration, electrode abnormalities, colitis, diverticulitis, UTI, pyelonephritis, malignancy. CBC will be obtained to assess white blood cell count, hemoglobin, platelets. BMP to assess renal function electrolytes. Urinalysis to assess for UTI. Will obtain an occult stool. CBC showed a mild leukocytosis at 13.3. Hemoglobin is actually elevated at 17.3. Platelets are normal. Renal function is within normal limits glucose slightly elevated at 161. No anion gap. LFTs are normal. Lipase is normal. I obtained a CT of the abdomen pelvis with IV contrast and this does not show anything acute. On rectal exam he has bright red blood per rectum. We discussed his 47 pound weight loss and this has been since September when they finally moved up. But they have been [id number] several times. Given this I spoke with Dr. Rodriguez regarding the patient and were going to admit him to the hospitalist. Plan on doing colonoscopy as tomorrow. Patient made in stable condition Impression: 1. Acute lower GI bleed 2. Abdominal pain 3. Unintentional weight loss Lab Data Labs: Laboratory Results - last 24 hr 11/08/22 21:22 WBC 13.3 H RBC 5.09 Hgb 17.3 H Hct 49.6 MCV 97.4 H MCH 34.0 H MCHC 34.9 RDW Std Deviation 54.5 H RDW Coeff of Sulema 15.0 H Plt Count 225 MPV 9.2 Immature Gran % (Auto) 0.400 Neut % (Auto) 86.0 H Lymph % (Auto) 6.3 L [place] % (Auto) 7.1 Eos % (Auto) 0.0 Baso % (Auto) 0.2 Absolute Neuts (auto) 11.5 H Absolute Lymphs (auto) 0.84 Nucleated RBC % 0 Sodium 136 Potassium 4.8 Chloride 101 Carbon Dioxide 31.0 Anion Gap 4 L BUN 19 H Creatinine 0.99 Est GFR (MDRD) Af Amer 95 Est GFR (MDRD) Non-Af 78 BUN/Creatinine Ratio 19.2 Glucose 161 H Calcium 9.8 Phosphorus 3.6 Magnesium 1.8 Total Bilirubin 0.30 Direct Bilirubin 0.10 AST 15 ALT 28 Alkaline Phosphatase 108 Total Protein 7.8 Albumin 3.4 Globulin 4.4 H Lipase 21 Radiography Diagnostic Testing: Clinical Impression(s) from Imaging Studies Abdomen/Pelvis CT 11/08/22 22:06 IMPRESSION: 1. Significantly limited as above. 2. Significantly limited evaluation of GI tract without oral contrast. Abnormalities such as enteritis and/or colitis are not excluded. No obstruction. Moderate diffuse fecal retention. 3. Bladder is markedly distended, and there is markedly large prostate gland. 4. Cholelithiasis. Dilated common bile duct. Correlate with liver function tests. Electronically Signed: Alhaji Pickett MD at 22:39 EDT , Discharge Plan Triage Chief Complaint: GI Bleed ED Provider: Jas Allison Dx/Rx/DC Orders Primary Care Provider: Damon Mayes Chi
[2022-11-08 22:21] VITALS: RESP 14; O2SAT 97
[2022-11-08 22:56] VITALS: BP 135/82; PULSE 81
--- NOTE | 2022-11-08 23:03 | HP.PCM.HOS_ITS ---
HPI - General General Date of Admission: 11/08/22 Date of Service: 11/08/22 Chief Complaint: Diarrhea, BRB, abd cramping. HPI Narrative The patient is a 72 y/o M w/ PMHx: COPD, Tobacco use, Depression and Anxiety, MIGUEL A on CPAP, Diabetes mellitus type II, Chronic essential tremor who presents to the [facility] ED on 11/08/22 with history of issues ongoing for the last several months of intermittent diarrhea with onset on day of presentation bloody stools as well as increased abdominal cramping with no nausea or emesis nor any fevers or chills and no history of previous diverticulitis nor any abdominal surgeries but has had a significant weight loss of reported 47 pounds since moving from [place] in September prompting ED evaluation. Patient has a continue to eat but despite continued oral intake per spouse and himself he is continue to lose w eight. 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 Workup in the ED included T97.8, heart rate 90, BP 121/76, respiratory rate 16, initially 91% on room air however repeat noted to be 97% on room air, CBC with WBC 13.3, hemoglobin 17.3 with last noted prior to this 09/26/2022 hemoglobin 15.4 at that time, platelet 225 with left shift, BMP with BUN/, 19/0.99, glucose 161, hepatic profile and lipase pending upon requested evaluation of patient, guaiac positive, CT abdomen and pelvis with IV contrast only with limited evaluation of the GI tract given lack of oral contrast, bladder distended with a large prostate, evidence of ch olelithiasis with a dilated common bile duct with recommendation for correlation of liver function tests. ED physician discussed case with GI Dr. Rodriguez who noted intention for c-scope to be performed. PFSH Medical History Anxiety and depression COPD (chronic obstructive pulmonary disease) Diabetes mellitus, type 2 Essential tremor Kidney stones MIGUEL A on CPAP Tobacco use Home Medications albuterol sulfate 90 mcg/actuation aerosol inhaler 2 inh inhalation Q4H PRN SOB 11/08/22 [History Last Taken Unknown] bupropion HCl 150 mg tablet,12 hr sustained-release 150 mg PO Q12H 11/08/22 [History Last Taken Unknown] gabapentin 300 mg capsule 300 mg PO QHS 11/08/22 [History Last Taken Unknown] latanoprost 0.005 % eye drops 1 drp ophthalmic (eye) QHS 11/08/22 [History Last Taken Unknown] primidone 50 mg tablet 50 mg PO Q12H 11/08/22 [History Last Taken Unknown] tamsulosin 0.4 mg capsule 0.4 mg PO Q24H 11/08/22 [History Last Taken Unknown] umeclidinium 62.5 mcg-vilanterol 25 mcg/actuation powdr for inhalation (Anoro Ellipta) 1 inh inhalation Q24H 11/08/22 [History Last Taken Unknown] Allergy/AdvReac Type Severity Reaction Status Date / Time bee venom protein (honey bee) Allergy Swelling Verified 11/08/22 20:24 fire ant Allergy Other Verified 11/08/22 20:24 tetanus and diphtheria Allergy Swelling Verified 11/08/22 20:24 toxoids codeine AdvReac Upset Verified 11/08/22 20:24 Stomach Family History (Updated 11/08/22 @ 23:[address] Irina Sanchez MD) Mother Heart disease Breast cancer CHF (congestive heart failure) Father Throat cancer History tobacco use concurrently, possibly chew. Surgical History (Updated 11/08/22 @ 23:[address] Irina Sanchez MD) History of skin surgery Social History (Updated 11/08/22 @ 23:[address] Irina Sanchez MD) household members: spouse Smoking Status: Current every day smoker tobacco type: cigarettes Smoking packs per day: 1.5 Smoking cigarettes per day: 30.0 Years smoked: 59 Smoking pack- years: 88.50 alcohol intake: never substance use type: does not use ROS ROS Narrative Admission Review of Systems: CONSTITUTIONAL: No fever, chills, + weakness or fatigue, significant weight loss. HEENT: Eyes: No visual loss, blurred vision, double vision or yellow sclerae. Ears, Nose, Throat: No hearing loss, sneezing, congestion, runny nose or sore throat. SKIN: No rash or itching, lesions, wounds. CARDIOVASCULAR: No chest pain, chest pressure or chest discomfort, palpitations, edema, orthopnea, syncopal events. RESPIRATORY: + Dyspnea with exertion which is chronic for patient, chronic occasional cough without marked sputum production, occasional wheezing. No hemoptysis. GASTROINTESTINAL: + Abdominal cramping, persistent diarrhea, bright red blood. No anorexia, nausea, vomiting, melena. GENITOURINARY: No dysuria, frequency, urgency or retention. NEUROLOGICAL: + headache. No dizziness, syncope, paralysis, ataxia, numbness or tingling in the extremities, focal weakness, change in bowel or bladder control, seizure. MUSCULOSKELETAL: + muscle, back pain, joint pain or stiffness. HEMATOLOGIC: + anemia, bleeding is noted. LYMPHATICS: No enlarged nodes. No history of splenectomy. PSYCHIATRIC: + history of depression or anxiety. ENDOCRINOLOGIC: No reports of sweating, cold or heat intolerance. No polyuria or polydipsia. ALLERGIES: No history of asthma, hives, eczema or rhinitis. Vital Signs Vital Signs Vital Signs: 11/08/22 20:22 11/08/22 22:21 11/08/22 22:56 Temperature 97.8 F Temperature Source Temporal Pulse Rate 90 81 Respiratory Rate 16 14 Blood Pressure 121/76 H 135/82 H Blood Pressure Mean 91 99 Pulse Ox 91 97 Oxygen Delivery Method Room Air Room Air Weight Weight: 124 lb 12.506 oz Body Mass Index (BMI) 18.4 Physical Exam Narrative Physical Examination: General: Awake, alert, oriented x 3 and cooperative, laying in the ED bed, fatigued appearing otherwise no acute distress, does report abdominal cramping. Skin: Normal color, normal turgor, no icterus, no cyanosis except occasional staged ecchymoses. HEENT: AT/NC, EOMI, PERRLA, moderately dry MM, no carotid bruits or JVD noted. Lungs: Diminished, greater bases, proper effort, no rales, ronchi or wheezing. Heart: Currently regular rate and rhythm; no gallop, rub audible. Abdomen: Soft, cachectic appearing, ticklish so some difficulty but no obvious tenderness to palpation, no marked distention, mildly hyperactive bowel sounds, + HM. Extremities: No cyanosis, clubbing, or edema, evidence of muscle wasting. Neurological: Patient awake, alert, oriented as noted, cognitive function intact; pupils equally reactive to light and accommodation, cranial nerves grossly normal, moving all 4 extremities, no focal deficits, strength moderately to severely globally decreased secondary to acute presentation and significant ongoing events as noted. Psychiatric: Affect appears fatigued, no acute evidence of depressive or anxiety feelings but does have underlying history. Results Lab / Micro Data 11/08/22 21:22 11/08/22 21:22 Labs: Laboratory Results - last 24 hr 11/08/22 21:22: WBC 13.3 H, RBC 5.09, Hgb 17.3 H, Hct 49.6, MCV 97.4 H, MCH 34.0 H, MCHC 34.9, RDW Std Deviation 54.5 H, RDW Coeff of Sulema 15.0 H, Plt Count 225, MPV 9.2, Immature Gran % (Auto) 0.400, Neut % (Auto) 86.0 H, Lymph % (Auto) 6.3 L, [place] % (Auto) 7.1, Eos % (Auto) 0.0, Baso % (Auto) 0.2, Absolute Neuts (auto) 11.5 H, Absolute Lymphs (auto) 0.84, Nucleated RBC % 0, Sodium 136, Potassium 4.8, Chloride 101, Carbon Dioxide 31.0, Anion Gap 4 L, BUN 19 H, Creatinine 0.99, Est GFR (MDRD) Af Amer 95, Est GFR (MDRD) Non-Af 78, BUN/Creatinine Ratio 19.2, Glucose 161 H, Calcium 9.8 Micro: Microbiology 11/08/22 22:44 Stool Stool Occult Blood (IZABELLA) - Final Occult Blood Positive Radiology Impression Abdomen/Pelvis CT 11/08/22 22:06 IMPRESSION: 1. Significantly limited as above. 2. Significantly limited evaluation of GI tract without oral contrast. Abnormalities such as enteritis and/or colitis are not excluded. No obstruction. Moderate diffuse fecal retention. 3. Bladder is markedly distended, and there is markedly large prostate gland. 4. Cholelithiasis. Dilated common bile duct. Correlate with liver function tests. Electronically Signed: Alhaji Pickett MD at 22:39 EDT , Assessment & Plan Assessment/Plan (1) GI bleed: PLAN: Plan The patient is a 72 y/o M w/ PMHx: COPD, Tobacco use, Depression and Anxiety, MIGUEL A on CPAP, Diabetes mellitus type II, Chronic essential tremor who presents to the [facility] ED on 11/08/22 with history of issues ongoing for the last several months of intermittent diarrhea with onset on day of presentation bloody stools as well as increased abdominal cramping with no nausea or emesis nor any fevers or chills and no history of previous diverticulitis nor any abdominal surgeries but has had a significant weight loss of reported 47 pounds since moving from [place] in September prompting ED evaluation. #1. Chronic intermittent diarrhea with onset acute BRBPR with concern for malignancy in addition to evidence severe protein-calorie malnutrition given significant weight loss/ongoing diarrhea, obvious muscle and fat loss: Will admit to medical surgical floor, maintain on judicious IV fluids, will obtain serial H&H's, will obtain enteric, C. difficile as well as ova and parasite given persistent issues, as noted currently hepatic profile is pending based on CT imaging recommendation as common bile duct is dilated with noted cholelithias is therefore if this is significant then maybe consider gallbladder ultrasound and also surgery involvement however at this time given concern for GI bleed with positive guaiac will request gastroenterology involvement given persistent nature of diarrhea now with onset of bleeding, will maintain on IV PPI, will allow clears until midnight with n.p.o. status following, nutrition consulted given malnutrition. PT/OT/case management consultation for discharge planning. #2. Chronic COPD: Will temporally hold home inhalers and in the interim transition to ATC budesonide therapy, PRN albuterol, HOB, IS parameters. #3. Diabetes mellitus type II with chronic neuropathy: From current medication list not on regimen, suspect diet controlled, given presentation will allow clears until midnight with n.p.o. status following, hemoglobin A1c requested, maintain on accu checks w/ ISS, continue patient home chronic gabapentin regimen. #4. Chronic essential tremors: We will continue patient home chronic primidone regimen. #5. Anxiety and depression: We will continue patient home bupropion regimen. #6. Tobacco Abuse: Encouraged cessation, inpatient consultation per RT, NR if desired. #7. BPH: We will continue patient on Flomax regimen. #8. MIGUEL A: CPAP if amenable. #9. DVT prophylaxis: SCDs given acute presentation #1. #10. CODE status: Patient HCPOA is not in place but his who is present would be his decision maker and living will is currently in place. Discussed CODE status at length including difference between FULL code, DNR-CCA and DNR-CC status. Following discussions about the differences in these status, requested eventually DNR-CCA, no intubation. Advanced Care Planning Face to Face Time: 16 minutes. Charges/Coding Visit Charges Inpatient E&M: 58071 Init Hosp L3 Procedures Hospitalists Procedures: 06885 Advncd Care Plan 30 Min
[2022-11-08 23:04] VITALS: BP 135/82; PULSE 80; RESP 16; TEMP 36.6; O2SAT 98
[2022-11-08 23:06] LABS: AST(SGOT) 15 U/L (15-37); Alanine Aminotransfer ALT/SGPT 28 U/L (16-61); Albumin, Serum 3.4 g/dL (3.2-5.0); Alkaline Phosphatase 108 U/L (45-117); Globulin 4.4 g/dL (2.2-4.2); Lipase 21 U/L (13-75); Protein, Total 7.8 g/dL (6.4-8.2)
[2022-11-08 23:36] LABS: Magnesium 1.8 mg/dL (1.6-2.6); Phosphorus 3.6 mg/dL (2.5-4.9)
[2022-11-09] VITALS (9 sets, daily range): BP systolic 91–138; BP diastolic 61–84; PULSE 74–88; RESP 14–18; TEMP 36.7–37.1; O2SAT 88–97
[2022-11-09 02:56] LABS: Hematocrit 48.6 % (40-54); Hemoglobin 16.9 g/dL (13.0-16.5)
[2022-11-09] MEDS: Latanoprost 0.005% 1 Bottle 1 DRP OPHTHALMIC ×2 (03:04→21:41)
[2022-11-09] MEDS: Gabapentin 300 MG Capsule PO ×2 (03:04→21:51)
[2022-11-09] MEDS: 0.9% Normal Saline 1,000 ML 100 ML IV ×2 (03:05→14:08)
[2022-11-09 03:30] LABS: Bedside Glucose 150 mg/dL (74-106)
[2022-11-09 06:28] LABS: Bedside Glucose 148 mg/dL (74-106)
[2022-11-09 06:35] LABS: Absolute Lymphocyte Count 1.04 X10^3/uL (0.83-4.51); Absolute Neutrophil Count 14.1 X10^3/uL (2.0-7.7); Basophil# 0.03 X10^3/uL; Basophil% 0.2 % (0-1); Hematocrit 47.5 % (40-54); Hemoglobin 16.5 g/dL (13.0-16.5); Lymphocyte # 1.04 X10^3/ul (0.83-4.51); Lymphocyte % 6.2 % (19-41); Mean Corp Hgb Conc 34.7 g/dL (32-36); Mean Corpuscular Hgb 33.7 pg (27.0-32.0); Mean Corpuscular Volume 97.1 fL (80-94); Mean Platelet Vol. 9.3 fl (6.2-12.0); Monocyte# 1.47 X10^3/uL; Monocyte% 8.8 % (0-10); NRBC Flagged by Analyzer 0 % (0-5); Neutrophil # 14.09 X10^3/uL (2.7-7.7); Neutrophil % 84.4 % (47-70); Platelet Count 206 K/mm3 (150-450); RBC Distribution Width CV 14.9 % (11.6-14.6); Red Blood Count 4.89 M/mm3 (4.6-6.2); White Blood Count 16.7 K/mm3 (4.4-11.0)
[2022-11-09 07:10] LABS: ALB/GLOB Ratio 0.7 RATIO (0.9-2.4); AST(SGOT) 16 U/L (15-37); Alanine Aminotransfer ALT/SGPT 25 U/L (16-61); Albumin, Serum 2.9 g/dL (3.2-5.0); Alkaline Phosphatase 96 U/L (45-117); Anion Gap 5 (5-15); BUN 18 mg/dL (7-18); BUN/Creat Ratio 19.7 RATIO (10-20); Calcium,Total 8.8 mg/dL (8.5-10.1); Chloride 103 mmol/L (98-107); Creatinine, Serum 0.91 mg/dL (0.70-1.30); EST Glomerular Filtration Rate 86 mL/min (>60); Est Glom Filt Rate - Afr Amer 104 mL/min (>60); Estimated Creatinine Clearance 53.09 ml/min; Glucose 134 mg/dL (74-106); Potassium 4.6 mmol/L (3.5-5.1); Protein, Total 6.9 g/dL (6.4-8.2); Sodium Level 136 mmol/L (136-145)
[2022-11-09] MEDS: Budesonide Respules 0.5 MG/2 ML AMPUL.NEB. INHALATION ×2 (07:41→19:21)
[2022-11-09 08:40] LABS: Hemoglobin A1c 5.9 % (3.8-5.6)
[2022-11-09] MEDS: Acetaminophen 325 MG Tablet 650 MG PO ×2 (09:04→22:21)
[2022-11-09] MEDS: Primidone 50 MG Tablet PO ×2 (09:05→21:39)
[2022-11-09] MEDS: Tamsulosin HCl 0.4 MG Capsule PO (09:05)
[2022-11-09] MEDS: buPROPion (SR) 150 MG Tablet.SA PO ×2 (09:06→21:40)
--- NOTE | 2022-11-09 10:46 | PN_ITS ---
Subjective Subjective Patient seen and examined. HE was still having diarrhea with blood in his stool. He admits to nausea but denies any vomiting. He is worried about his excessive weight loss. Review of systems is otherwise negative. WBC is 16.7. Objective Data Objective Data Vital Signs: Vital Signs Temp Pulse Resp BP Pulse Ox O2 Del Method O2 Flow Rate 98.4 F 88 18 115/66 92 Nasal Cannula 2 11/09/22 06:07 11/09/22 07:29 11/09/22 07:29 11/09/22 06:07 11/09/22 07:29 11/09/22 10:00 11/09/22 07:29 Oxygen Flow Rate (L/min) 2 Oxygen Delivery Method Nasal Cannula Weight: 116 lb 2.938 oz Body Mass Index (BMI) 0.1 Intake & Output: Intake and Output for Last 24 Hours 11/07/22 11/08/22 11/09/22 23:59 23:59 23:59 Intake Total 110 / 110 Balance 110 / 110 Lab / Micro Data 11/09/22 06:20 11/09/22 06:20 Labs: Laboratory Results - last 24 hr 11/08/22 21:22: WBC 13.3 H, RBC 5.09, Hgb 17.3 H, Hct 49.6, MCV 97.4 H, MCH 34.0 H, MCHC 34.9, RDW Std Deviation 54.5 H, RDW Coeff of Sulema 15.0 H, Plt Count 225, MPV 9.2, Immature Gran % (Auto) 0.400, Neut % (Auto) 86.0 H, Lymph % (Auto) 6.3 L, [place] % (Auto) 7.1, Eos % (Auto) 0.0, Baso % (Auto) 0.2, Absolute Neuts (auto) 11.5 H, Absolute Lymphs (auto) 0.84, Nucleated RBC % 0, Sodium 136, Potassium 4.8, Chloride 101, Carbon Dioxide 31.0, Anion Gap 4 L, BUN 19 H, Creatinine 0.99, Est GFR (MDRD) Af Amer 95, Est GFR (MDRD) Non-Af 78, BUN/Creatinine Ratio 19.2, Glucose 161 H, Calcium 9.8, Phosphorus 3.6, Magnesium 1.8, Total Bilirubin 0.30, Direct Bilirubin 0.10, AST 15, ALT 28, Alkaline Phosphatase 108, Total P rotein 7.8, Albumin 3.4, Globulin 4.4 H, Lipase 21 11/09/22 02:47: Hgb 16.9 H, Hct 48.6 11/09/22 03:03: POC Glucose 150 H 11/09/22 06:00: POC Glucose 148 H 11/09/22 06:20: WBC 16.7 H, RBC 4.89, Hgb 16.5, Hct 47.5, MCV 97.1 H, MCH 33.7 H , MCHC 34.7, RDW Std Deviation 54.0 H, RDW Coeff of Sulema 14.9 H, Plt Count 206, MPV 9.3, Immature Gran % (Auto) 0.400, Neut % (Auto) 84.4 H, Lymph % (Auto) 6.2 L, [place] % (Auto) 8.8, Eos % (Auto) 0.0, Baso % (Auto) 0.2, Absolute Neuts (auto) 14.1 H, Absolute Lymphs (auto) 1.04, Nucleated RBC % 0, Sodium 136, Potassium 4.6, Chloride 103, Carbon Dioxide 28.0, Anion Gap 5, BUN 18, Creatinine 0.91, Estim Creat Clear Calc 53.09, Est GFR (MDRD) Af Amer 104, Est GFR (MDRD) Non-Af 86, BUN/Creatinine Ratio 19.7, Glucose 134 H, Hemoglobin A1c 5.9 H, Calcium 8.8, Total Bilirubin 0.30, AST 16, ALT 25, Alkaline Phosphatase 96, Total Protein 6.9, Albumin 2.9 L, Globulin 4.0, Albumin/Globulin Ratio 0.7 L Micro: Microbiology 11/08/22 22:44 Stool Stool Occult Blood (IZABELLA) - Final Occult Blood Positive Radiography Diagnostic Testing: Radiology Impression Abdomen/Pelvis CT 11/08/22 22:06 IMPRESSION: 1. Significantly limited as above. 2. Significantly limited evaluation of GI tract without oral contrast. Abnormalities such as enteritis and/or colitis are not excluded. No obstruction. Moderate diffuse fecal retention. 3. Bladder is markedly distended, and there is markedly large prostate gland. 4. Cholelithiasis. Dilated common bile duct. Correlate with liver function tests. Electronically Signed: Alhaji Pickett MD at 22:39 EDT , Physical Exam Const oriented x3 and no apparent distress Constitutional Narrative: frail, thin General Appearance: cooperative HEENT normocephalic and head/scalp atraumatic Mouth: dry mucous membranes Eyes PERRL and EOMs intact bilaterally Neck no lymphadenopathy and supple Lymph Lymphatic: no lymphadenopathy noted and no lymphedema noted Resp normal respiratory effort, normal air movement and clear to auscultation bilaterally Cardio regular rate, regular rhythm, S1 normal heart sound, S2 normal heart sound and no murmurs GI normal to inspection, nondistended, normoactive bowel sounds, soft to palpation and non-distended GI Narrative: mild generalised tenderness, no guarding or rebound tenderness Extremity normal capillary refill and no clubbing, cyanosis or edema Skin General Skin Exam: no breakdown Neuro CN's II-XII intact bilaterally, no focal motor deficits and no sensory deficits noted Psych thought process normal, cooperative and affect normal Appearance: appropriate Assessment & Plan Assessment/Plan (1) GI bleed: PLAN: Plan #Lower GI bleed * admitted with diarrhea and associated lower GI bleed. Still having diarrhea and rectal bleeding * stool panel and C diff pending * CT abdomen showed dilated common bile duct with noted cholelithiasis. gall blader USG ordeed * liver profile was normal. Has had significan weight loss over the past few months also, which is concerning for malignancy. * gastroenterology consulted; for colonoscopy today. * currently NPO. Hydrate gently with iVF * * #Severe protein calorie malnutrition * patient weighs only 116 pounds, and admits to rapid weight loss over the last few weeks. * on nutrition consulted. * #TYpe 2 diabetes mellitus with peripheral neuropathy * not on insulin. ISS. accuchecks ACHS * A1C is 5.9. * COPD: not in exacerbation. Breathing treatment with bronchodilators. #Benign essential tremors: on primidone #Anxiety and depression; on bupropion #Nicotine dependence: counseled to quit Charges/Coding Visit Charges Inpatient E&M: 98689 Subs Hosp L2
[2022-11-09 12:02] LABS: Bedside Glucose 148 mg/dL (74-106)
--- NOTE | 2022-11-09 13:40 | CASEMGMT ---
RN CM Face to Face with patient for initial transition planning/care coordination assessment. RN CM introduced self and role at [facility]. Patient lying in bed, alert and oriented, at bedside. Patient willing to participate in assessment and is able to answer all questions appropriately. Care providers, pharmacy, and demographics verified. Patient wishes to discharge home, denies need for home health at this time, will monitor progress. Patient states he has no further needs or concerns at this time. CM to follow for discharge planning needs that may arise. PCP: Gerber Specialists: none Preferred Pharmacy: [facility] Insurance: [facility] Prescription Benefit: yes Living Will/HPOA: yes, Josi Nuñez LNOK: Living Arrangements: Patient lives with in single story home with no steps to enter the home. Patient is independent at home. Transportation: self, DME/HHC: Patient has raised toilet, cane, walker, grab bars, cpap with oxygen bleed in at 2lpm through [facility]. No previous HHC or SNF. Disposition Plan: Patient to discharge home with family support and follow-up plans in place. Will monitor for HHC at discharge. Suzi RENTERIA, RN, CM
--- NOTE | 2022-11-09 15:21 | CHAPLAIN ---
Type of Pastoral Visit _x__ Initial Visit ___ Follow-up Visit ___ On-call Visit ___ General Patient Visit ___ Spiritual Assessment ___ Family Conference ___ Bereavement ___ Rapid Response ___ Code Blue ___ Other (describe below) Pastoral Care Referral From _x__ Patient ___ Family ___ Nurse ___ Physician ___ Medical Dosimetrist ___ Leaded Glass Installer ___ Other (describe below) Sacrament/Intervention _x__ Active listening ___ Anointing ___ Taoism ___ Bereavement ___ Communion ___ Humera exploration ___ _x__ Life review _x__ Prayer ___ Reconciliation ___ Sacrament of Sick _x__ Supportive presence ___ Wedding ___ Other (describe below) Pastoral Comments patient and spouse together in room and welcoming of spiritual care support; both report on health developments for pt in last few months; pt admits to anxiety about issues and will be having tests done today; this couple has been for over 52 years and have recently moved back to [place] to build a new home for half-way and closer to family; this couple does not currently have a humera community but did years ago; both are welcoming of prayer and presence at this time of uncertainty;
[2022-11-09] MEDS: Bisacodyl 5 MG Tablet 20 MG PO (17:37)
[2022-11-09 17:59] LABS: Bedside Glucose 162 mg/dL (74-106)
[2022-11-09] MEDS: Polyethylene Glycol 3350 BOWEL PREP 1 BOTTLE PO (18:13)
--- NOTE | 2022-11-09 18:25 | CON.PCM.GI_ITS ---
HPI Consult Data Date of Consult: 11/09/22 HPI Narrative Reason for Consultation: Diarrhea and lower GI bleeding HPI Narrative: NIKOLAI MTZ, is a 72 M who presents with diarrhea. He states he had an on and off for 6 months. Today started having blood in his stool. He has more cramping. He does not have any nausea or vomiting. No fever or chills. Patient not on any blood thinners. No history of diverticulitis. No history of abdominal surgeries. He does report that he has had 47 pounds of weight loss since moving here from [place]. He states it was initially due to some vertigo which made it very hard for him to eat. He is not experiencing vertigo tonight. He has a past medical history of COPD, Tobacco use, Depression and Anxiety, MIGUEL A on CPAP, Diabetes mellitus type II. Patient has a continue to eat but despite continued oral intake per spouse and himself he is continue to lose weight. 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 Workup in the ED included T97.8, heart rate 90, BP 121/76, respiratory rate 16, initially 91% on room air however repeat noted to be 97% on room air, CBC with WBC 13.3, hemoglobin 17.3 with last noted prior to this 09/26/2022 hemoglobin 15.4 at that time, platelet 225 with left shift, BMP with BUN/, 19/0.99, glucose 161, hepatic profile and lipase pending upon requested evaluation of patient, guaiac positive, CT abdomen and pelvis with IV contrast only with limited evaluation of the GI tract given lack of oral contrast, bladder distended with a large prostate, evidence of cholelithiasis with a dilated common bile duct with recommendation for correlation of liver function tests. PFSH Medical History Anxiety and depression Asthma BiPAP (biphasic positive airway pressure) dependence COPD (chronic obstructive pulmonary disease) Diabetes Diabetes mellitus, type 2 Essential tremor Kidney stones MIGUEL A on CPAP Smoker Tobacco use Home Medications albuterol sulfate 90 mcg/actuation aerosol inhaler 2 inh inhalation Q4H PRN SOB 11/08/22 [History Last Taken Unknown] bupropion HCl 150 mg tablet,12 hr sustained-release 150 mg PO Q12H 11/08/22 [History Last Taken Unknown] gabapentin 300 mg capsule 300 mg PO QHS 11/08/22 [History Last Taken Unknown] latanoprost 0.005 % eye drops 1 drp ophthalmic (eye) QHS 11/08/22 [History Last Taken Unknown] primidone 50 mg tablet 50 mg PO Q12H 11/08/22 [History Last Taken Unknown] tamsulosin 0.4 mg capsule 0.4 mg PO Q24H 11/08/22 [History Last Taken Unknown] umeclidinium 62.5 mcg-vilanterol 25 mcg/actuation powdr for inhalation (Anoro Ellipta) 1 inh inhalation Q24H 11/08/22 [History Last Taken Unknown] Allergy/AdvReac Type Severity Reaction Status Date / Time bee venom protein (honey bee) Allergy Swelling Verified 11/08/22 20:24 fire ant Allergy Other Verified 11/08/22 20:24 tetanus and diphtheria Allergy Swelling Verified 11/08/22 20:24 toxoids codeine AdvReac Upset Verified 11/08/22 20:24 Stomach Family History (Updated 11/08/22 @ 23:[address] Irina Sanchez MD) Mother Heart disease Breast cancer CHF (congestive heart failure) Father Throat cancer History tobacco use concurrently, possibly chew. Surgical History (Updated 11/08/22 @ 23:[address] Irina Sanchez MD) History of skin surgery Social History (Updated 11/08/22 @ 23:[address] Irina Sanchez MD) household members: spouse Smoking Status: Heavy Smoker (>10/day) alcohol intake: never substance use type: does not use ROS ROS Narrative Admission Review of Systems: CONSTITUTIONAL: No fever, chills, + weakness or fatigue, significant weight loss. HEENT: Eyes: No visual loss, blurred vision, double vision or yellow sclerae. Ears, Nose, Throat: No hearing loss, sneezing, congestion, runny nose or sore throat. SKIN: No rash or itching, lesions, wounds. CARDIOVASCULAR: No chest pain, chest pressure or chest discomfort, palpitations, edema, orthopnea, syncopal events. RESPIRATORY: + Dyspnea with exertion which is chronic for patient, chronic occasional cough without marked sputum production, occasional wheezing. No hemoptysis. GASTROINTESTINAL: + Abdominal cramping, persistent diarrhea, bright red blood. No anorexia, nausea, vomiting, melena. GENITOURINARY: No dysuria, frequency, urgency or retention. NEUROLOGICAL: + headache. No dizziness, syncope, paralysis, ataxia, numbness or tingling in the extremities, focal weakness, change in bowel or bladder control, seizure. MUSCULOSKELETAL: + muscle, back pain, joint pain or stiffness. HEMATOLOGIC: + anemia, bleeding is noted. LYMPHATICS: No enlarged nodes. No history of splenectomy. PSYCHIATRIC: + history of depression or anxiety. ENDOCRINOLOGIC: No reports of sweating, cold or heat intolerance. No polyuria or polydipsia. ALLERGIES: No history of asthma, hives, eczema or rhinitis. Physical Exam Const oriented x3 and no apparent distress Constitutional Narrative: frail, thin General Appearance: cooperative HEENT normocephalic and head/scalp atraumatic Mouth: dry mucous membranes Eyes PERRL and EOMs intact bilaterally Neck no lymphadenopathy and supple Lymph Lymphatic: no lymphadenopathy noted and no lymphedema noted Resp normal respiratory effort, normal air movement and clear to auscultation bilaterally Cardio regular rate, regular rhythm, S1 normal heart sound, S2 normal heart sound and no murmurs GI normal to inspection, nondistended, normoactive bowel sounds, soft to palpation and non-distended GI Narrative: mild generalised tenderness, no guarding or rebound tenderness Extremity normal capillary refill and no clubbing, cyanosis or edema Skin General Skin Exam: no breakdown Neuro CN's II-XII intact bilaterally, no focal motor deficits and no sensory deficits noted Psych thought process normal, cooperative and affect normal Appearance: appropriate Lab / Micro Data 11/09/22 06:20 11/09/22 06:20 Labs: Laboratory Results - last 24 hr 11/08/22 21:22: WBC 13.3 H, RBC 5.09, Hgb 17.3 H, Hct 49.6, MCV 97.4 H, MCH 34.0 H, MCHC 34.9, RDW Std Deviation 54.5 H, RDW Coeff of Sulema 15.0 H, Plt Count 225, MPV 9.2, Immature Gran % (Auto) 0.400, Neut % (Auto) 86.0 H, Lymph % (Auto) 6.3 L, Saline % (Auto) 7.1, Eos % (Auto) 0.0, Baso % (Auto) 0.2, Absolute Neuts (auto) 11.5 H, Absolute Lymphs (auto) 0.84, Nucleated RBC % 0, Sodium 136, Potassium 4.8, Chloride 101, Carbon Dioxide 31.0, Anion Gap 4 L, BUN 19 H, Creatinine 0.99, Est GFR (MDRD) Af Amer 95, Est GFR (MDRD) Non-Af 78, BUN/Creatinine Ratio 19.2, Glucose 161 H, Calcium 9.8, Phosphorus 3.6, Magnesium 1.8, Total Bilirubin 0.30, Direct Bilirubin 0.10, AST 15, ALT 28, Alkaline Phosphatase 108, Total Protein 7.8, Albumin 3.4, Globulin 4.4 H, Lipase 21 11/09/22 02:47: Hgb 16.9 H, Hct 48.6 11/09/22 03:03: POC Glucose 150 H 11/09/22 06:00: POC Glucose 148 H 11/09/22 06:20: WBC 16.7 H, RBC 4.89, Hgb 16.5, Hct 47.5, MCV 97.1 H, MCH 33.7 H , MCHC 34.7, RDW Std Deviation 54.0 H, RDW Coeff of Sulema 14.9 H, Plt Count 206, MPV 9.3, Immature Gran % (Auto) 0.400, Neut % (Auto) 84.4 H, Lymph % (Auto) 6.2 L, Saline % (Auto) 8.8, Eos % (Auto) 0.0, Baso % (Auto) 0.2, Absolute Neuts (auto) 14.1 H, Absolute Lymphs (auto) 1.04, Nucleated RBC % 0, Sodium 136, Potassium 4.6, Chloride 103, Carbon Dioxide 28.0, Anion Gap 5, BUN 18, Creatinine 0.91, Estim Creat Clear Calc 53.09, Est GFR (MDRD) Af Amer 104, Est GFR (MDRD) Non-Af 86, BUN/Creatinine Ratio 19.7, Glucose 134 H, Hemoglobin A1c 5.9 H, Calcium 8.8, Total Bilirubin 0.30, AST 16, ALT 25, Alkaline Phosphatase 96, Total Protein 6.9, Albumin 2.9 L, Globulin 4.0, Albumin/Globulin Ratio 0.7 L 11/09/22 11:44: POC Glucose 148 H 11/09/22 17:36: POC Glucose 162 H Micro: Microbiology 11/08/22 22:44 Stool Stool Occult Blood (IZABELLA) - Final Occult Blood Positive Radiology Impression Abdomen/Pelvis CT 11/08/22 22:06 IMPRESSION: 1. Significantly limited as above. 2. Significantly limited evaluation of GI tract without oral contrast. Abnormalities such as enteritis and/or colitis are not excluded. No obstruction. Moderate diffuse fecal retention. 3. Bladder is markedly distended, and there is markedly large prostate gland. 4. Cholelithiasis. Dilated common bile duct. Correlate with liver function tests. Electronically Signed: Alhaji Pickett MD at 22:39 EDT , Assessment & Plan Assessment/Plan (1) GI bleed: QUALIFIERS: GI bleed type/associated pathology: anorectal hemorrhage Qualified Code(s): K62.5 - Hemorrhage of anus and rectum PLAN: Plan 72 gentleman with past medical history of COPD, depression, nicotine addiction, MIGUEL A with progressive weight loss presents with worsening diarrhea. T #1. Chronic diarrhea differential diagnosis does include-chronic mesenteric ischemia, superior mesenteric artery syndrome, ischemic colitis, less likely malignancy or inflammatory bowel disease. Recommend EGD and colonoscopy to evaluate his upper and lower GI tract. #2. CT imaging recommendation as common bile duct is dilated with noted cholelithiasis-differential diagnosis does include choledochal cyst, biliary stricture, ampullary adenoma or ampullary neoplasm. Recommend MRCP Charges/Coding Visit Charges Inpatient E&M: 99383 Init Hosp L3
[2022-11-09] MEDS: 0.9% Saline Lock 10 ML Syringe IV (21:51)
[2022-11-10] VITALS (16 sets, daily range): BP systolic 93–113; BP diastolic 46–74; PULSE 71–85; RESP 14–22; TEMP 36.3–36.9; O2SAT 84–96; BMI 17.6
--- NOTE | 2022-11-10 | COLBX_PTH ---
PATIENT: NIKOLAI MTZ LOC: [facility] U#:[id number] AGE/SX: 72/M ROOM: [facility] RE11/08/[address]: Dr. Ulisses Miller DO : 1950 BED: 1 DIS: 11/13/2022 SPEC #: [id number] RECD: 11/10/22 14:25 STATUS: ABILIO REJaspal #: [id number] GERALDINE: 11/10/22 00:[address]: David Rodriguez DEPT: SURGICAL PATHOLOGY RECD BY: Osmin Shah ENTERED: 11/13/22 08:57 SP TYPE: COLON BX OTHR DR: MD Dr. Ulisses Cheung DO Dr. Nana Yaa Koram, MD Dr. Tai Chi Kwok, MD Tissues: A - SPLENIC FLEXURE B - Descending colon Procedures: Surgery Specimen Level IV Comments: @ Ordering doctor for SUIV edited from to @ by JAX at 11/13/22 1348 @ Submitting doctor edited from to @ by RGOOD at 11/13/22 1348 HEADER OPERATION: Colonoscopy, biopsy, polypectomy, EGD with cautery PRE-OP DIAGNOSIS: GI bleed TISSUE SUBMITTED: A - Splenic flexure polyp, B - Descending, transverse, sigmoid-ischemic colitis biopsy MICROSCOPIC DIAGNOSIS A. Colonic polyp at splenic flexure, biopsy: Fragments of tubular adenoma. B. Descending, transverse, sigmoid colon, biopsy: Consistent with ischemic colitis. AM:jose 11/14/2022 MICROSCOPIC DESCRIPTION Slides are reviewed. GROSS DESCRIPTION A - Received in fixative is one container labeled with the patient's name and designated splenic flexure polyp. The specimen consists of multiple irregular fragments of light sheldon soft tissue that in aggregate measure 0.6 x 0.5 x 0.1 cm. The specimen is totally submitted in one cassette. B - Received in fixative is one container labeled with the patient's name and designated descending, transverse, sigmoid. The specimen consists of multiple irregular fragments of light sheldon soft tissue that in aggregate measure 1.0 x 0.8 x 0.1 cm. The specimen is totally submitted in one cassette. / AM:jose 11/13/2022 TC:3 CPT: 39158 x2
--- NOTE | 2022-11-10 00:06 | CPS ---
Patient refused PAP therapy for the night.
[2022-11-10 00:12] LABS: Bedside Glucose 143 mg/dL (74-106)
[2022-11-10 06:14] LABS: Absolute Lymphocyte Count 1.24 X10^3/uL (0.83-4.51); Absolute Neutrophil Count 16.8 X10^3/uL (2.0-7.7); Basophil# 0.05 X10^3/uL; Basophil% 0.3 % (0-1); Eosinophil# 0.03 X10^3/uL; Eosinophils% 0.2 % (0-5); Hematocrit 43.7 % (40-54); Lymphocyte # 1.24 X10^3/ul (0.83-4.51); Lymphocyte % 6.3 % (19-41); Mean Corp Hgb Conc 34.3 g/dL (32-36); Mean Corpuscular Hgb 34.1 pg (27.0-32.0); Mean Corpuscular Volume 99.3 fL (80-94); Mean Platelet Vol. 9.3 fl (6.2-12.0); Monocyte% 7.2 % (0-10); NRBC Flagged by Analyzer 0 % (0-5); Neutrophil # 16.75 X10^3/uL (2.7-7.7); Neutrophil % 85.5 % (47-70); Platelet Count 188 K/mm3 (150-450); RBC Distribution Width CV 15.1 % (11.6-14.6); White Blood Count 19.6 K/mm3 (4.4-11.0)
[2022-11-10 06:24] LABS: Prothrombin Time (Protime)PT. 13.6 SECONDS (11.7-14.9)
[2022-11-10 06:25] LABS: Partial Thromboplast Time 36.5 Seconds (24.1-36.2)
[2022-11-10 06:43] LABS: Alanine Aminotransfer ALT/SGPT 29 U/L (16-61); Anion Gap 3 (5-15); BUN 15 mg/dL (7-18); BUN/Creat Ratio 19.4 RATIO (10-20); Calcium,Total 8.4 mg/dL (8.5-10.1); Chloride 103 mmol/L (98-107); Creatinine, Serum 0.77 mg/dL (0.70-1.30); EST Glomerular Filtration Rate 104 mL/min (>60); Est Glom Filt Rate - Afr Amer 126 mL/min (>60); Estimated Creatinine Clearance 49.68 ml/min; Glucose 106 mg/dL (74-106); Potassium 4.1 mmol/L (3.5-5.1); Sodium Level 135 mmol/L (136-145)
[2022-11-10 06:44] LABS: AST(SGOT) 18 U/L (15-37)
[2022-11-10 06:52] LABS: Bedside Glucose 120 mg/dL (74-106)
--- NOTE | 2022-11-10 07:29 | MRI_ITS ---
INDICATION: abdominal pain, dilated common bile duct EXAMINATION: MRI - MR MRCP and Abdomen W/O Contrast TECHNIQUE: Multiplanar and multisequence MR images of the abdomen were obtained with MRCP sequence. Three-dimensional post-processing reconstructions were performed. IV Contrast Dosage and Agent: None. COMPARISON: CT abdomen and pelvis 11/08/2022 FINDINGS: LIVER: No mass. Normal morphology. GALLBLADDER AND BILIARY TREE: Multiple gallstones. Gallbladder distention 4.4 cm transverse. The CBD measures 6 mm. No intra- or extrahepatic biliary dilation. No choledochal filling defect. PANCREAS: No mass. No pancreatic duct dilation. SPLEEN: Small. ADRENAL GLANDS: No nodules. KIDNEYS: Normal renal size and position. No hydronephrosis. No mass. LYMPH NODES: No enlarged periportal or retroperitoneal lymph nodes. PERITONEUM: No ascites or fluid collection. VESSELS: Aorta is non-dilated. LOWER CHEST: Left pleural effusion. MRI/MRCP Abdomen without Contrast IMPRESSION: Cholelithiasis with nonspecific gallbladder distention. Normal common bile duct without evidence of choledocholithiasis. Pending Final Proof Editing
[2022-11-10] MEDS: 0.9% Saline Lock 10 ML Syringe IV ×3 (08:48→21:05)
[2022-11-10] MEDS: Acetaminophen 325 MG Tablet 650 MG PO (08:58)
--- NOTE | 2022-11-10 09:21 | CASEMGMT ---
Discharge Planning HH list created and given to RN ISMAEL. Yadi Weber, Discharge Planning Asst.
--- NOTE | 2022-11-10 09:28 | NURSING ---
Addendum entered by Tena Avila 11/10/22 09:55: 0955- Pt up to toilet, liquid stool is clear, returned to bed Original Note: 0907- Pt given second tap water enema, tolerated well
[2022-11-10] MEDS: Lactated Ringers 1,000 ML 15 ML IV (11:15)
[2022-11-10 11:43] LABS: Bedside Glucose 118 mg/dL (74-106)
--- NOTE | 2022-11-10 12:55 | CT_ITS ---
STUDY: CTA ABDOMEN AND PELVIS WITH CONTRAST REASON FOR EXAM: Male, 72 years old. Ischemic colitis RADIATION DOSAGE (If Supplied By Facility): CTDIvol = ( 28.72 ) mGy, DLP = ( 401.39 ) mGycm TECHNIQUE: Transaxial images were obtained from the dome of the diaphragm to the symphysis pubis without oral contrast. IV 100mL Isovue-370 was administered. Sagittal and coronal images were reconstructed. 3-D reconstruction was obtained as well. Individualized dose optimization techniques were used for this CT. COMPARISON: Comparison is made with prior study November 08, 2022. FINDINGS: Infiltration is seen in the left lower lobe. Coronary artery calcification. Hepatomegaly. Mildly distended gallbladder lumen. Multiple small gallstones. Normal spleen. Normal pancreas. Normal bilateral adrenal glands. Normal right kidney. Normal left kidney. Normal visualized stomach. Normal small intestine. There are multiple colonic diverticula consistent with diverticulosis. Minimal thickening of the sigmoid colon. Due to lack of oral contrast, there is limited evaluation of the colon and small bowel loops. The appendix is visualized and appears normal. Normal abdominal aorta. Normal inferior vena cava. Normal retroperitoneum. Distended urinary bladder. Prostatic enlargement with prostatic calcification and indentation at the bladder base. Normal abdominal wall. There are degenerative changes of the visualized lumbar spine. CT/CTA Abd/Pelvis W/WO Contrast IMPRESSION: Multiple small gallstones. Minimally dilated gallbladder. Stable marked degree of hepatomegaly. Limited evaluation of the small and large bowel due to lack of oral contrast. Sigmoid diverticulosis with thickening of the sigmoid colon. Distended urinary bladder and prostatic enlargement. Electronically Signed: José Rosen MD at 15:35 EDT ,
--- NOTE | 2022-11-10 12:59 | OP.CCLET_ITS ---
11/10/2022 Damon Mayes MD [address] [place] [address] Re : Upper GI endoscopy procedure for Riceky Byrneyael Dear Dr. Mayes This procedure was performed on Thursday, November 10, 2022. My impressions and recommendations are as follows: Impressions : - Normal esophagus. - Medium-sized hiatal hernia. - Non-bleeding gastric ulcer with no stigmata of bleeding. Biopsied. 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 Treated with a heater probe. Recommendations : - Discharge patient to home. - Resume previous diet. - Continue present medications. - Await pathology results. My findings are described in the full procedure note, which is enclosed. If I can be of further assistance, please feel free to contact me at . Sincerely, David Rodriguez, 11/10/2022 12:58:53 PM This report has been signed electronically.
--- NOTE | 2022-11-10 12:59 | OP.EGD_ITS ---
Patient Name: Rcikey Nuñez Procedure Date: 11/10/2022 12:04 PM Date of : 1950 Age: 72 Procedure: Upper GI endoscopy Indications: Epigastric abdominal pain, Hematochezia Providers: David Rodriguez DO Medicines: Monitored Anesthesia Care Patient Profile: This is a 72 year old male. Refer to note in patient chart for documentation of history and physical. Patient has symptoms of chronic abdominal cramping and acute epigastric abdominal pain. Complications: No immediate complications. Procedure: Pre-Anesthesia Assessment: - Prior to the procedure, a History and Physical was performed, and patient medications and allergies were reviewed. The patient is competent. The risks and benefits of the procedure and the sedation options and risks were discussed with the patient. All questions were answered and informed consent was obtained. Patient identification and proposed procedure were verified by the physician. Mental Status Examination: normal. Prophylactic Antibiotics: The patient does not require prophylactic antibiotics. Prior Anticoagulants: The patient has taken no anticoagulant or antiplatelet agents. After reviewing the risks and benefits, the patient was deemed in satisfactory condition to undergo the procedure. The anesthesia plan was to use monitored anesthesia care (MAC). Immediately prior to administration of medications, the patient was re-assessed for adequacy to receive sedatives. The heart rate, respiratory rate, oxygen saturations, blood pressure, adequacy of pulmonary ventilation, and response to care were monitored throughout the procedure. The physical status of the patient was re-assessed after the procedure. After obtaining informed consent, the endoscope was passed under direct vision. Throughout the procedure, the patient's blood pressure, pulse, and oxygen saturations were monitored continuously. The pediatric colonoscope was introduced through the mouth, and advanced to the second part of duodenum. The upper GI endoscopy was accomplished without difficulty. Scope In: 12:16:39 PM Scope Out: 12:19:35 PM Total Procedure Duration Time 0 hours 2 minutes 56 seconds Findings: The examined esophagus was normal. A medium-sized hiatal hernia was present. One non-bleeding superficial gastric ulcer with no stigmata of bleeding was found in the gastric body. The lesion was 6 mm in largest dimension. Biopsies were taken with a cold forceps for Helicobacter pylori testing. Verification of patient identification for the specimen was done. Estimated blood loss was minimal. Three 6 mm angiodysplastic lesions with stigmata of recent bleeding were found in the duodenal bulb. Coagulation for hemostasis using heater probe was successful. Estimated blood loss was minimal. Impression: - Normal esophagus. - Medium-sized hiatal hernia. - Non-bleeding gastric ulcer with no stigmata of bleeding. Biopsied. 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 Treated with a heater probe. Recommendation: - Discharge patient to home. - Resume previous diet. - Continue present medications. - Await pathology results. Procedure Code(s): --- Professional --- 30479, 59, Esophagogastroduodenoscopy, flexible, transoral; with control of bleeding, any method 16840, 51, Esophagogastroduodenoscopy, flexible, transoral; with biopsy, single or multiple CPT copyright 2021 [employer]. All rights reserved. The codes documented in this report are preliminary and upon pre coder review may be revised to meet current compliance requirements. David Rodriguez DO 11/10/2022 12:58:53 PM This report has been signed electronically. Number of Addenda: 0 Note Initiated On: 11/10/2022 12:04 PM
--- NOTE | 2022-11-10 13:01 | PN_ITS ---
Subjective Subjective Patient seen and examined. He feels weak and tired, especially due to the colon prep he was taking. Review of systems is otherwise negative. GI is on board, and is for EGD and colonoscopy today. Objective Data Objective Data Vital Signs: Vital Signs Temp Pulse Resp BP Pulse Ox O2 Del Method O2 Flow Rate 97.8 F 81 16 107/69 92 Nasal Cannula 2 11/10/22 08:36 11/10/22 08:36 11/10/22 08:36 11/10/22 08:36 11/10/22 08:36 11/10/22 09:02 11/10/22 09:02 Oxygen Flow Rate (L/min) 2 Oxygen Delivery Method Nasal Cannula Weight: 119 lb 7.849 oz Body Mass Index (BMI) 17.6 Intake & Output: Intake and Output for Last 24 Hours 11/08/22 11/09/22 11/10/22 23:59 23:59 23:59 Intake Total 2288.33 / 2288.33 110 / 110 Balance 2288.33 / 2288.33 110 / 110 Lab / Micro Data 11/10/22 06:02 11/10/22 06:02 Labs: Laboratory Results - last 24 hr 11/09/22 17:36: POC Glucose 162 H 11/09/22 23:50: POC Glucose 143 H 11/10/22 06:02: WBC 19.6 H, RBC 4.40 L, Hgb 15.0, Hct 43.7, MCV 99.3 H, MCH 34.1 H, MCHC 34.3, RDW Std Deviation 56.0 H, RDW Coeff of Sulema 15.1 H, Plt Count 188, MPV 9.3, Immature Gran % (Auto) 0.500, Neut % (Auto) 85.5 H, Lymph % (Auto) 6.3 L, [place] % (Auto) 7.2, Eos % (Auto) 0.2, Baso % (Auto) 0.3, Absolute Neuts (auto) 16.8 H, Absolute Lymphs (auto) 1.24, Nucleated RBC % 0, PT 13.6, INR 1.0, APTT 36.5 H, Sodium 135 L, Potassium 4.1, Chloride 103, Carbon Dioxide 29.0, Anion Gap 3 L, BUN 15, Creatinine 0.77, Estim Creat Clear Calc 49.68, Est GFR (MDRD) Af Amer 126, Est GFR (MDRD) Non-Af 104, BUN/Creatinine Ratio 19.4, Glucose 106, Calcium 8.4 L, AST 18, ALT 29 11/10/22 06:34: POC Glucose 120 H 11/10/22 11:25: POC Glucose 118 H Micro: Microbiology 11/09/22 17:45 Stool Enteric Bacteriology - Final 11/08/22 22:44 Stool Stool Occult Blood (IZABELLA) - Final Occult Blood Positive Physical Exam Const alert, oriented x3 and no apparent distress Constitutional Narrative: frail, thin General Appearance: cooperative HEENT normocephalic and head/scalp atraumatic Eyes PERRL and EOMs intact bilaterally Neck no lymphadenopathy and supple Lymph Lymphatic: no lymphadenopathy noted and no lymphedema noted Resp normal respiratory effort, normal air movement and clear to auscultation bilaterally Cardio regular rate, regular rhythm, S1 normal heart sound, S2 normal heart sound and no murmurs GI normal to inspection, nondistended, normoactive bowel sounds, soft to palpation, non-tender and non-distended GI Narrative: mild generalised tenderness, no guarding or rebound tenderness Extremity normal capillary refill and no clubbing, cyanosis or edema Skin General Skin Exam: no breakdown Neuro CN's II-XII intact bilaterally, no focal motor deficits and no sensory deficits noted Psych thought process normal, cooperative and affect normal Appearance: appropriate Assessment & Plan Assessment/Plan (1) GI bleed: QUALIFIERS: GI bleed type/associated pathology: anorectal hemorrhage Qualified Code(s): K62.5 - Hemorrhage of anus and rectum PLAN: Plan #Lower GI bleed * admitted with diarrhea and associated lower GI bleed. Still having diarrhea and rectal bleeding * stool panel negative. * C diff pending. * CT abdomen showed dilated common bile duct with noted cholelithiasis. gall blader USG ordered * liver profile was normal. Has had significant weight loss over the past few months also, which is concerning for malignancy. * gastroenterology consulted; for colonoscopy today. * per GI, MRCP ordered. CTA abdomen and pelvis ordered. * currently NPO. Hydrate gently with iVF * * #Severe protein calorie malnutrition * patient weighs only 116 pounds, and admits to rapid weight loss over the last few weeks. * nutrition consulted. * #TYpe 2 diabetes mellitus with peripheral neuropathy * not on insulin. ISS. accuchecks ACHS * A1C is 5.9. * #Leucocytosis * wbc is up to 19.6 today * not on any antibiotics. NO clear source of infection * will check procalcitonin * COPD: not in exacerbation. Breathing treatment with bronchodilators. #Benign essential tremors: on primidone #Anxiety and depression; on bupropion #Nicotine dependence: counseled to quit DVT prophylaxis; SCDs Charges/Coding Visit Charges Inpatient E&M: 23129 Subs Hosp L2
--- NOTE | 2022-11-10 13:05 | OP.CCLET_ITS ---
11/10/2022 Damon Mayes MD [address] [place] [address] Re : Colonoscopy procedure for Rickey Nuñez Dear Dr. Mayes This procedure was performed on Thursday, November 10, 2022. My impressions and recommendations are as follows: Impressions : - Preparation of the colon was fair. - Hemorrhoids found on perianal exam. - Granularity in the recto-sigmoid colon, in the sigmoid colon, in the descending colon, at the splenic flexure and in the transverse colon. Biopsied. - Mucosal ulceration. Injected. Treated with a heater probe. - Diverticulosis in the recto-sigmoid colon, in the sigmoid colon and in the descending colon. - One 9 mm polyp in the descending colon, removed with a cold snare. Resected and retrieved. - Stool in the recto-sigmoid colon, in the sigmoid colon, in the descending colon, at the splenic flexure, in the ascending colon and in the cecum. - Three 1 to 2 mm polyps in the transverse colon, in the ascending colon and in the cecum. Recommendations : - Repeat colonoscopy in 2 months because the bowel preparation was poor and for surveillance of multiple polyps. - CT angio to evaluate the mesenteric vasculature due to severe ischemic colitis - Continue present medications. My findings are described in the full procedure note, which is enclosed. If I can be of further assistance, please feel free to contact me at . Sincerely, David Rodriguez, 11/10/2022 1:05:17 PM This report has been signed electronically.
--- NOTE | 2022-11-10 13:05 | OP.COLON_ITS ---
Patient Name: Rickey Nuñez Procedure Date: 11/10/2022 12:19 PM Date of : 1950 Age: 72 Procedure: Colonoscopy Indications: Hematochezia Providers: David Rodriguez DO Medicines: Monitored Anesthesia Care Patient Profile: This is a 72 year old male. Refer to note in patient chart for documentation of history and physical. Patient has symptoms of chronic abdominal cramping and acute epigastric abdominal pain. Last Colonoscopy: 10 years ago. Complications: No immediate complications. Procedure: Pre-Anesthesia Assessment: - Prior to the procedure, a History and Physical was performed, and patient medications and allergies were reviewed. The patient is competent. The risks and benefits of the procedure and the sedation options and risks were discussed with the patient. All questions were answered and informed consent was obtained. Patient identification and proposed procedure were verified by the physician. Mental Status Examination: normal. Prophylactic Antibiotics: The patient does not require prophylactic antibiotics. Prior Anticoagulants: The patient has taken no anticoagulant or antiplatelet agents. After reviewing the risks and benefits, the patient was deemed in satisfactory condition to undergo the procedure. The anesthesia plan was to use monitored anesthesia care (MAC). Immediately prior to administration of medications, the patient was re-assessed for adequacy to receive sedatives. The heart rate, respiratory rate, oxygen saturations, blood pressure, adequacy of pulmonary ventilation, and response to care were monitored throughout the procedure. The physical status of the patient was re-assessed after the procedure. After I obtained informed consent, the scope was passed under direct vision. Throughout the procedure, the patient's blood pressure, pulse, and oxygen saturations were monitored continuously. The pediatric colonoscope was introduced through the anus and advanced to the cecum, identified by appendiceal orifice and ileocecal valve. The colonoscopy was performed without difficulty. The patient tolerated the procedure well. The quality of the bowel preparation was fair. Scope In: 12:22:57 PM Scope Out: 12:50:14 PM Total Procedure Duration Time 0 hours 27 minutes 17 seconds Findings: Hemorrhoids were found on perianal exam. A diffuse area of granular mucosa was found in the recto-sigmoid colon, in the sigmoid colon, in the descending colon, at the splenic flexure and in the transverse colon. Biopsies were taken with a cold forceps for histology. Verification of patient identification for the specimen was done. Estimated blood loss was minimal. Discontinuous areas of bleeding ulcerated mucosa with stigmata of recent bleeding were present at the splenic flexure. Area was successfully injected with 5 mL of a 0.1 mg/mL solution of epinephrine for drug delivery. Coagulation for hemostasis using heater probe was successful. Estimated blood loss was minimal. Multiple small and large-mouthed diverticula were found in the recto-sigmoid colon, sigmoid colon and descending colon. A 9 mm polyp was found in the descending colon. The polyp was sessile. The polyp was removed with a cold snare. Resection and retrieval were complete. Verification of patient identification for the specimen was done. Estimated blood loss was minimal. A moderate amount of stool was found in the recto-sigmoid colon, in the sigmoid colon, in the descending colon, at the splenic flexure, in the ascending colon and in the cecum. Three sessile polyps were found in the transverse colon, ascending colon and cecum. The polyps were 1 to 2 mm in size. Retroflexion was not performed in the rectum Impression: - Preparation of the colon was fair. - Hemorrhoids found on perianal exam. - Granularity in the recto-sigmoid colon, in the sigmoid colon, in the descending colon, at the splenic flexure and in the transverse colon. Biopsied. - Mucosal ulceration. Injected. Treated with a heater probe. - Diverticulosis in the recto-sigmoid colon, in the sigmoid colon and in the descending colon. - One 9 mm polyp in the descending colon, removed with a cold snare. Resected and retrieved. - Stool in the recto-sigmoid colon, in the sigmoid colon, in the descending colon, at the splenic flexure, in the ascending colon and in the cecum. - Three 1 to 2 mm polyps in the transverse colon, in the ascending colon and in the cecum. Recommendation: - Repeat colonoscopy in 2 months because the bowel preparation was poor and for surveillance of multiple polyps. - CT angio to evaluate the mesenteric vasculature due to severe ischemic colitis - Continue present medications. Procedure Code(s): --- Professional --- 55233, 59, Colonoscopy, flexible; with control of bleeding, any method 80746, Colonoscopy, flexible; with removal of tumor(s), polyp(s), or other lesion(s) by snare technique 26233, 59, Colonoscopy, flexible; with biopsy, single or multiple 62821, 59, Colonoscopy, flexible; with directed submucosal injection(s), any substance CPT copyright 2021 [employer]. All rights reserved. The codes documented in this report are preliminary and upon psychology teacher review may be revised to meet current compliance requirements. David Rodriguez DO 11/10/2022 1:05:17 PM This report has been signed electronically. Number of Addenda: 0 Note Initiated On: 11/10/2022 12:19 PM
--- NOTE | 2022-11-10 15:00 | CASEMGMT ---
Patient out of room for procedure. in patient's room. RN CM discussed possible HHC at discharge. A list of HHC providers including quality and resource use data and consistent with the patient?s preferred geographical region, medical needs, and insurance network were provided from the [facility]. Patient and to review list and provide preferences. CM to monitor progress with therapy. CM will continue to follow this patient and plan for a safe discharge.
[2022-11-10] MEDS: Tamsulosin HCl 0.4 MG Capsule PO (16:28)
[2022-11-10 16:54] LABS: Bedside Glucose 87 mg/dL (74-106)
[2022-11-10] MEDS: Budesonide Respules 0.5 MG/2 ML AMPUL.NEB. INHALATION (19:51)
[2022-11-10] MEDS: Albuterol 2.5 MG/3 ML VIAL.NEB. INHALATION (19:51)
[2022-11-10] MEDS: buPROPion (SR) 150 MG Tablet.SA PO (21:05)
[2022-11-10] MEDS: Latanoprost 0.005% 1 Bottle 1 DRP OPHTHALMIC (21:05)
[2022-11-10] MEDS: Gabapentin 300 MG Capsule PO (21:05)
[2022-11-10] MEDS: Primidone 50 MG Tablet PO (21:05)
--- NOTE | 2022-11-10 21:29 | CPS ---
Pt refuses CPAP and BIPAP. RT offered with same as home set up. Pt declined.
--- NOTE | 2022-11-10 21:55 | CPS ---
Pt refused PAP therapy for the night.
[2022-11-11] VITALS (12 sets, daily range): BP systolic 102–135; BP diastolic 56–72; PULSE 70–81; RESP 16–18; TEMP 36.3–37; O2SAT 92–97; BMI 18.3
[2022-11-11 00:29] LABS: Bedside Glucose 107 mg/dL (74-106)
[2022-11-11 06:33] LABS: Bedside Glucose 92 mg/dL (74-106)
[2022-11-11] MEDS: Budesonide Respules 0.5 MG/2 ML AMPUL.NEB. INHALATION ×2 (07:01→19:58)
[2022-11-11 08:14] LABS: Absolute Lymphocyte Count 0.99 X10^3/uL (0.83-4.51); Absolute Neutrophil Count 11.7 X10^3/uL (2.0-7.7); Basophil# 0.04 X10^3/uL; Basophil% 0.3 % (0-1); Eosinophil# 0.06 X10^3/uL; Eosinophils% 0.4 % (0-5); Hematocrit 40.3 % (40-54); Hemoglobin 13.6 g/dL (13.0-16.5); Lymphocyte # 0.99 X10^3/ul (0.83-4.51); Lymphocyte % 7.1 % (19-41); Mean Corp Hgb Conc 33.7 g/dL (32-36); Mean Corpuscular Hgb 33.9 pg (27.0-32.0); Mean Corpuscular Volume 100.5 fL (80-94); Mean Platelet Vol. 9.7 fl (6.2-12.0); Monocyte# 1.18 X10^3/uL; Monocyte% 8.4 % (0-10); NRBC Flagged by Analyzer 0 % (0-5); Neutrophil % 83.4 % (47-70); Platelet Count 190 K/mm3 (150-450); RBC Distribution Width CV 14.9 % (11.6-14.6); RBC Distribution Width SD 55.6 fl (35.1-43.9); Red Blood Count 4.01 M/mm3 (4.6-6.2)
[2022-11-11 08:33] LABS: Anion Gap 4 (5-15); BUN 12 mg/dL (7-18); BUN/Creat Ratio 15.6 RATIO (10-20); Calcium,Total 8.3 mg/dL (8.5-10.1); Chloride 100 mmol/L (98-107); Creatinine, Serum 0.77 mg/dL (0.70-1.30); EST Glomerular Filtration Rate 105 mL/min (>60); Est Glom Filt Rate - Afr Amer 127 mL/min (>60); Glucose 94 mg/dL (74-106); Potassium 3.9 mmol/L (3.5-5.1); Sodium Level 134 mmol/L (136-145)
--- NOTE | 2022-11-11 09:39 | PN.GI_ITS ---
Subjective Subjective Patient underwent an EGD and colonoscopy yesterday for GI bleed and progressive weight loss. His upper endoscopy did not show any signs of duodenal villous atrophy on endoscopic evaluation. Biopsies were not done for celiac sprue or disease involving the small bowel due to his presentation of GI bleed. He did have a small angiodysplastic lesion that was treated in his stomach. His colonoscopy had a poor prep but it showed severe ischemic colitis involving the left side of the colon. 1 polyp was also removed. He had 3 3 other polyps that were not removed due to poor prep. He denies any abdominal pain at this time. Objective Data Objective Data Vital Signs: Vital Signs Temp Pulse Resp BP Pulse Ox O2 Del Method O2 Flow Rate 98.6 F 70 16 111/69 92 Nasal Cannula 5 11/11/22 05:00 11/11/22 07:02 11/11/22 07:02 11/11/22 05:00 11/11/22 07:02 11/11/22 07:02 11/11/22 07:02 Oxygen Flow Rate (L/min) 5 Oxygen Delivery Method Nasal Cannula Weight: 124 lb 5.451 oz Body Mass Index (BMI) 18.3 Intake & Output: Intake and Output for Last 24 Hours 11/09/22 11/10/22 11/11/22 23:59 23:59 23:59 Intake Total 2288.33 / 2288.33 220 / 220 240.00 / 240.00 Balance 2288.33 / 2288.33 220 / 220 240.00 / 240.00 Lab / Micro Data 11/11/22 07:24 11/11/22 07:24 Labs: Laboratory Results - last 24 hr 11/10/22 11:25: POC Glucose 118 H 11/10/22 16:27: POC Glucose 87 11/11/22 00:11: POC Glucose 107 H 11/11/22 06:08: POC Glucose 92 11/11/22 07:24: WBC 14.0 H, RBC 4.01 L, Hgb 13.6, Hct 40.3, MCV 100.5 H, MCH 3 3.9 H, MCHC 33.7, RDW Std Deviation 55.6 H, RDW Coeff of Sulema 14.9 H, Plt Count 190, MPV 9.7, Immature Gran % (Auto) 0.400, Neut % (Auto) 83.4 H, Lymph % (Auto) 7.1 L, [place] % (Auto) 8.4, Eos % (Auto) 0.4, Baso % (Auto) 0.3, Absolute Neuts (auto) 11.7 H, Absolute Lymphs (auto) 0.99, Nucleated RBC % 0, Sodium 134 L, Potassium 3.9, Chloride 100, Carbon Dioxide 30.0, Anion Gap 4 L, BUN 12, Creatinine 0.77, Estim Creat Clear Calc 51.70, Est GFR (MDRD) Af Amer 127, Est GFR (MDRD) Non-Af 105, BUN/Creatinine Ratio 15.6, Glucose 94, Calcium 8.3 L Micro: Microbiology 11/10/22 02:08 Stool C. difficile GDH Antigen & Toxins - Final 11/10/22 02:08 Stool C. difficile DNA Amplification - Final 11/09/22 17:45 Stool Enteric Bacteriology - Final 11/08/22 22:44 Stool Stool Occult Blood (IZABELLA) - Final Occult Blood Positive Radiography Diagnostic Testing: Radiology Impression MRCP 11/10/22 07:29 IMPRESSION: Multiple small gallstones. Minimally dilated gallbladder. Stable marked degree of hepatomegaly. Limited evaluation of the small and large bowel due to lack of oral contrast. Sigmoid diverticulosis with thickening of the sigmoid colon. Distended urinary bladder and prostatic enlargement. Electronically Signed: José Rosen MD at 15:35 EDT , Abdomen/Pelvis CTA 11/10/22 12:55 IMPRESSION: Multiple small gallstones. Minimally dilated gallbladder. Stable marked degree of hepatomegaly. Limited evaluation of the small and large bowel due to lack of oral contrast. Sigmoid diverticulosis with thickening of the sigmoid colon. Distended urinary bladder and prostatic enlargement. Electronically Signed: José Rosen MD at 15:35 EDT , Physical Exam Const alert, oriented x3 and no apparent distress Constitutional Narrative: frail, thin General Appearance: cooperative HEENT normocephalic and head/scalp atraumatic Eyes PERRL and EOMs intact bilaterally Neck no lymphadenopathy and supple Lymph Lymphatic: no lymphadenopathy noted and no lymphedema noted Resp normal respiratory effort, normal air movement and clear to auscultation bilaterally Cardio regular rate, regular rhythm, S1 normal heart sound, S2 normal heart sound and no murmurs GI normal to inspection, nondistended, normoactive bowel sounds, soft to palpation, non-tender and non-distended GI Narrative: mild generalised tenderness, no guarding or rebound tenderness Extremity normal capillary refill and no clubbing, cyanosis or edema Skin General Skin Exam: no breakdown Neuro CN's II-XII intact bilaterally, no focal motor deficits and no sensory deficits noted Psych thought process normal, cooperative and affect normal Appearance: appropriate Assessment & Plan Assessment/Plan (1) GI bleed: QUALIFIERS: GI bleed type/associated pathology: anorectal hemorr lucien Qualified Code(s): K62.5 - Hemorrhage of anus and rectum (2) Ischemic colitis: (3) Cholelithiasis: QUALIFIERS: Cholelithiasis location: gallbladder Cholecystitis presence: without cholecystitis Biliary obstruction: without biliary obstruction Qualified Code(s): K80.20 - Calculus of gallbladder without cholecystitis without obstruction PLAN: Plan 72 y/o M w/ PMHx: COPD, Tobacco use, Depression and Anxiety, MIGUEL A on CPAP, Diabetes mellitus type II, Chronic essential tremor who presents to the [facility] ED on 11/08/22. He also admitted to for the last several months of intermittent diarrhea with onset on day of presentation bloody stools as well as increased abdominal cramping. His upper endoscopy did not show any acute pathology. However his colonoscopy showed severe ischemic colitis involving watershed area between the SMA and KRISTINA distribution. I suspect that this is secondary to se mauri peripheral vascular disease. I ordered a CT angiography after seeing the severe ischemic colitis. However the CTA did not comment on any vascular compromise. His previous CT did comment on the heavy calcium burden. MRCP was ordered and showed no signs of choledocholithiasis but it did show cholelithiasis without any signs of cholecystitis. Recommend: -Repeat colonoscopy as an outpatient to remove other adenomatous polyps -Patient is okay to take blood thinners such as antiplatelet therapy or anticoagulation -Smoking cessation -Advance diet as tolerated -I would get vascular surgery opinion regarding his severe ischemic colitis. Charges/Coding Visit Charges Inpatient E&M: 71644 Subs Hosp L3
[2022-11-11] MEDS: 0.9% Saline Lock 10 ML Syringe IV ×2 (10:04→21:18)
[2022-11-11] MEDS: Primidone 50 MG Tablet PO ×2 (10:05→21:16)
[2022-11-11] MEDS: Tamsulosin HCl 0.4 MG Capsule PO (10:05)
[2022-11-11] MEDS: buPROPion (SR) 150 MG Tablet.SA PO ×2 (10:05→21:16)
[2022-11-11 11:54] LABS: Bedside Glucose 185 mg/dL (74-106)
--- NOTE | 2022-11-11 11:54 | PN_ITS ---
Subjective Subjective Patient seen and examined. He had no complaints today and had an uneventful night. Review of systems is otherwise negative. 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 He is on 5L of oxygen. Review of systems is otherwise negative. Objective Data Objective Data Vital Signs: Vital Signs Temp Pulse Resp BP Pulse Ox O2 Del Method O2 Flow Rate 97.4 F L 80 16 102/56 L 94 Nasal Cannula 3 11/11/22 09:55 11/11/22 09:55 11/11/22 09:55 11/11/22 09:55 11/11/22 11:05 11/11/22 11:05 11/11/22 11:05 Oxygen Flow Rate (L/min) 3 Oxygen Delivery Method Nasal Cannula Weight: 124 lb 5.451 oz Body Mass Index (BMI) 18.3 Intake & Output: Intake and Output for Last 24 Hours 11/09/22 11/10/22 11/11/22 23:59 23:59 23:59 Intake Total 2288.33 / 2288.33 220 / 220 550.00 / 550.00 Balance 2288.33 / 2288.33 220 / 220 550.00 / 550.00 Lab / Micro Data 11/11/22 07:24 11/11/22 07:24 Labs: Laboratory Results - last 24 hr 11/10/22 16:27: POC Glucose 87 11/11/22 00:11: POC Glucose 107 H 11/11/22 06:08: POC Glucose 92 11/11/22 07:24: WBC 14.0 H, RBC 4.01 L, Hgb 13.6, Hct 40.3, MCV 100.5 H, MCH 33.9 H, MCHC 33.7, RDW Std Deviation 55.6 H, RDW Coeff of Sulema 14.9 H, Plt Count 190, MPV 9.7, Immature Gran % (Auto) 0.400, Neut % (Auto) 83.4 H, Lymph % (Auto) 7.1 L, [place] % (Auto) 8.4, Eos % (Auto) 0.4, Baso % (Auto) 0.3, Absolute Neuts (auto) 11.7 H, Absolute Lymphs (auto) 0.99, Nucleated RBC % 0, Sodium 134 L, Potassium 3.9, Chloride 100, Carbon Dioxide 30.0, Anion Gap 4 L, BUN 12, Creatinine 0.77, Estim Creat Clear Calc 51.70, Est GFR (MDRD) Af Amer 127, Est GFR (MDRD) Non-Af 105, BUN/Creatinine Ratio 15.6, Glucose 94, Calcium 8.3 L 11/11/22 11:04: POC Glucose 185 H Micro: Microbiology 11/10/22 02:08 Stool C. difficile GDH Antigen & Toxins - Final 11/10/22 02:08 Stool C. difficile DNA Amplification - Final 11/09/22 17:45 Stool Enteric Bacteriology - Final 11/08/22 22:44 Stool Stool Occult Blood (IZABELLA) - Final Occult Blood Positive Radiography Diagnostic Testing: Radiology Impression MRCP 11/10/22 07:29 IMPRESSION: Multiple small gallstones. Minimally dilated gallbladder. Stable marked degree of hepatomegaly. Limited evaluation of the small and large bowel due to lack of oral contrast. Sigmoid diverticulosis with thickening of the sigmoid colon. Distended urinary bladder and prostatic enlargement. Electronically Signed: José Rosen MD at 15:35 EDT , Abdomen/Pelvis CTA 11/10/22 12:55 IMPRESSION: Multiple small gallstones. Minimally dilated gallbladder. Stable marked degree of hepatomegaly. Limited evaluation of the small and large bowel due to lack of oral contrast. Sigmoid diverticulosis with thickening of the sigmoid colon. Distended urinary bladder and prostatic enlargement. Electronically Signed: José Rosen MD at 15:35 EDT , Physical Exam Const alert, oriented x3 and no apparent distress Constitutional Narrative: frail, thin General Appearance: cooperative HEENT normocephalic and head/scalp atraumatic Eyes PERRL and EOMs intact bilaterally Neck no lymphadenopathy and supple Lymph Lymphatic: no lymphadenopathy noted and no lymphedema noted Resp Resp Narrative: diminished breath sounds bibasally, no wheezes or crackles. On 5L of oxygen, weaned down to 3L of oxygen. Cardio regular rate, regular rhythm, S1 normal heart sound, S2 normal heart sound and no murmurs GI normal to inspection, nondistended, normoactive bowel sounds, soft to palpation, non-tender and non-distended Extremity normal capillary refill and no clubbing, cyanosis or edema Skin General Skin Exam: no breakdown Neuro CN's II-XII intact bilaterally, no focal motor deficits and no sensory deficits noted Motor Exam: strength 5/5 throughout Psych thought process normal, cooperative and affect normal Appearance: appropriate Assessment & Plan Assessment/Plan (1) GI bleed: QUALIFIERS: GI bleed type/associated pathology: anorectal hemorrhage Qualified Code(s): K62.5 - Hemorrhage of anus and rectum PLAN: Plan #Lower GI bleed * admitted with diarrhea and associated lower GI bleed. Still having diarrhea and rectal bleeding * stool panel negative. * C diff pending. * CT abdomen showed dilated common bile duct with noted cholelithiasis. gall blader USG ordered * liver profile was normal. Has had significant weight loss over the past few months also, which is concerning for malignancy. * gastroenterology consulted; had colonoscopy which showed hemorrhoids and granularity in the rectosigmoid, sigmoid and descending colon which were biopsied. He also had mucosal ulceration which was injected and he had diverticulosis in the rectosigmoid and sigmoid colon as well as descending colon. He had a 9 mm polyp in the descending colon which was removed with a cold snare. He had some polyps also in the transverse and ascending colon and in the cecum. 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 * CT a of the abdomen and pelvis was done due to concerns about ischemic colitis and it showed multiple small gallstones and a minimally dilated gallbladder as well as stable marked degree of hepatomegaly and evidence of sigmoid diverticulosis. * MRCP findings were similar to CT of the abdomen and pelvis findings. * * #HYpoxia * Patient was on 5 L this morning though he said he did not feel short of b reath. He has been weaned down to 3 L of oxygen. * Titrate oxygen to maintain saturation above 90%. * Breathing treatments bronchodilators. * #Severe protein calorie malnutrition * patient weighs only 116 pounds, and admits to rapid weight loss over the last few weeks. * nutrition on board * #TYpe 2 diabetes mellitus with peripheral neuropathy * not on insulin. ISS. accuchecks ACHS * A1C is 5.9. * #Leucocytosis * wbc is down to 14 today, from 19.6 yesterday * not on any antibiotics. NO clear source of infection * likely reactive. Will monitor * COPD: not in exacerbation. Breathing treatment with bronchodilators. #Benign essential tremors: on primidone #Anxiety and depression; on bupropion #Nicotine dependence: counseled to quit DVT prophylaxis; SCDs Disposition: anticipate dc tomorrow if medically stable. Charges/Coding Visit Charges Inpatient E&M: 09464 Subs Hosp L2
[2022-11-11] MEDS: Insulin Lispro 100 UNIT/ML INSULN.PEN SC (12:07)
--- NOTE | 2022-11-11 14:30 | CASEMGMT ---
DUDLEY GUEVARA Follow-up: This DUDLEY GUEVARA met with pt face to face at bedside to discuss home health and provider preference. Pt states he is agreeable to HHC. States his will be in later and he is not sure of which HH company they would prefer to use. Will follow-up with pt and pt's spouse for preference of HHC provider. Arley Kingston RN CM
[2022-11-11 18:08] LABS: Bedside Glucose 92 mg/dL (74-106)
[2022-11-11] MEDS: Acetaminophen 325 MG Tablet 650 MG PO (21:16)
[2022-11-11] MEDS: Gabapentin 300 MG Capsule PO (21:16)
[2022-11-11] MEDS: Latanoprost 0.005% 1 Bottle 1 DRP OPHTHALMIC (21:16)
[2022-11-12 00:13] LABS: Bedside Glucose 99 mg/dL (74-106)
[2022-11-12 04:39] VITALS: BP 115/68; PULSE 67; RESP 18; TEMP 36.6; O2SAT 93
[2022-11-12 04:47] VITALS: BMI 18.0
[2022-11-12 06:14] LABS: Absolute Lymphocyte Count 1.01 X10^3/uL (0.83-4.51); Absolute Neutrophil Count 7.7 X10^3/uL (2.0-7.7); Basophil# 0.03 X10^3/uL; Basophil% 0.3 % (0-1); Eosinophil# 0.11 X10^3/uL; Eosinophils% 1.1 % (0-5); Hematocrit 39.3 % (40-54); Hemoglobin 13.1 g/dL (13.0-16.5); Lymphocyte # 1.01 X10^3/ul (0.83-4.51); Mean Corp Hgb Conc 33.3 g/dL (32-36); Mean Corpuscular Hgb 33.2 pg (27.0-32.0); Mean Corpuscular Volume 99.5 fL (80-94); Mean Platelet Vol. 9.2 fl (6.2-12.0); Monocyte# 1.16 X10^3/uL; Monocyte% 11.5 % (0-10); NRBC Flagged by Analyzer 0 % (0-5); Neutrophil # 7.71 X10^3/uL (2.7-7.7); Neutrophil % 76.6 % (47-70); Platelet Count 194 K/mm3 (150-450); RBC Distribution Width CV 14.4 % (11.6-14.6); Red Blood Count 3.95 M/mm3 (4.6-6.2); White Blood Count 10.1 K/mm3 (4.4-11.0)
[2022-11-12 06:22] LABS: Bedside Glucose 114 mg/dL (74-106)
[2022-11-12 06:40] LABS: Anion Gap 2 (5-15); BUN 13 mg/dL (7-18); BUN/Creat Ratio 16.9 RATIO (10-20); Calcium,Total 8.5 mg/dL (8.5-10.1); Chloride 101 mmol/L (98-107); Creatinine, Serum 0.77 mg/dL (0.70-1.30); EST Glomerular Filtration Rate 105 mL/min (>60); Est Glom Filt Rate - Afr Amer 127 mL/min (>60); Estimated Creatinine Clearance 50.69 ml/min; Glucose 108 mg/dL (74-106); Sodium Level 135 mmol/L (136-145)
[2022-11-12] MEDS: Budesonide Respules 0.5 MG/2 ML AMPUL.NEB. INHALATION ×2 (07:17→19:22)
[2022-11-12 07:18] VITALS: PULSE 67; RESP 16; O2SAT 92
--- NOTE | 2022-11-12 10:23 | PN_ITS ---
Subjective Subjective Patient seen and examined. He complained of rectal bleeding this morning. It was painless. He had no other complaints and review of systems was otherwise negative. Objective Data Objective Data Vital Signs: Vital Signs Temp Pulse Resp BP Pulse Ox O2 Del Method O2 Flow Rate 97.8 F 67 16 115/68 92 Nasal Cannula 2 11/12/22 04:39 11/12/22 07:18 11/12/22 07:18 11/12/22 04:39 11/12/22 07:18 11/12/22 07:18 11/12/22 07:18 Oxygen Flow Rate (L/min) 2 Oxygen Delivery Method Nasal Cannula Weight: 121 lb 14.65 oz Body Mass Index (BMI) 18.0 Intake & Output: Intake and Output for Last 24 Hours 11/10/22 11/11/22 11/12/22 23:59 23:59 23:59 Intake Total 220 / 220 660.00 / 660.00 Balance 220 / 220 660.00 / 660.00 Lab / Micro Data 11/12/22 05:55 11/12/22 05:55 Labs: Laboratory Results - last 24 hr 11/11/22 11:04: POC Glucose 185 H 11/11/22 17:07: POC Glucose 92 11/11/22 23:30: POC Glucose 99 11/12/22 05:55: WBC 10.1, RBC 3.95 L, Hgb 13.1, Hct 39.3 L, MCV 99.5 H, MCH 33.2 H, MCHC 33.3, RDW Std Deviation 53.0 H, RDW Coeff of Sulema 14.4, Plt Count 194, MPV 9.2, Immature Gran % (Auto) 0.500, Neut % (Auto) 76.6 H, Lymph % (Auto) 10.0 L, [place] % (Auto) 11.5 H, Eos % (Auto) 1.1, Baso % (Auto) 0.3, Absolute Neuts (auto) 7.7, Absolute Lymphs (auto) 1.01, Nucleated RBC % 0, Sodium 135 L, Potassium 4.0, Chloride 101, Carbon Dioxide 32.0, Anion Gap 2 L, BUN 13, Creatinine 0.77, Estim Creat Clear Calc 50.69, Est GFR (MDRD) Af Amer 127, Est GFR (MDRD) Non-Af 105, BUN/Creatinine Ratio 16.9, Glucose 108 H, Calcium 8.5 11/12/22 06:04: POC Glucose 114 H Micro: Microbiology 11/10/22 02:08 Stool C. difficile GDH Antigen & Toxins - Final 11/10/22 02:08 Stool C. difficile DNA Amplification - Final 11/09/22 17:45 Stool Enteric Bacteriology - Final 11/08/22 22:44 Stool Stool Occult Blood (IZABELLA) - Final Occult Blood Positive Physical Exam Const alert, oriented x3 and no apparent distress Constitutional Narrative: frail, thin General Appearance: cooperative HEENT normocephalic and head/scalp atraumatic Eyes PERRL and EOMs intact bilaterally Neck no lymphadenopathy and supple Lymph Lymphatic: no lymphadenopathy noted and no lymphedema noted Resp normal respiratory effort, normal air movement and clear to auscultation bilaterally Resp Narrative: diminished breath sounds bibasally, no wheezes or crackles. on 2L of oxygen Cardio regular rate, regular rhythm, S1 normal heart sound, S2 normal heart sound and no murmurs GI normal to inspection, nondistended, normoactive bowel sounds, soft to palpation, non-tender and non-distended Extremity normal capillary refill and no clubbing, cyanosis or edema Skin General Skin Exam: no breakdown Neuro CN's II-XII intact bilaterally, no focal motor deficits and no sensory deficits noted Motor Exam: strength 5/5 throughout Psych thought process normal, cooperative and affect normal Appearance: appropriate Assessment & Plan Assessment/Plan (1) GI bleed: QUALIFIERS: GI bleed type/associated pathology: anorectal hemorrhage Qualified Code(s): K62.5 - Hemorrhage of anus and rectum PLAN: Plan #Lower GI bleed * admitted with diarrhea and associated lower GI bleed. Still having diarrhea and rectal bleeding * stool panel negative. * CT abdomen showed dilated common bile duct with noted cholelithiasis. gall blader USG ordered * liver profile was normal. Has had significant weight loss over the past few months also, which is concerning for malignancy. * gastroenterology consulted; had colonoscopy which showed hemorrhoids and granularity in the rectosigmoid, sigmoid and descending colon which were biopsied. He also had mucosal ulceration which was injected and he had diverticulosis in the rectosigmoid and sigmoid colon as well as descending c olon. He had a 9 mm polyp in the descending colon which was removed with a cold snare. He had some polyps also in the transverse and ascending colon and in the cecum. 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 * CT a of the abdomen and pelvis was done due to concerns about ischemic colitis and it showed multiple small gallstones and a minimally dilated gallbladder as well as stable marked degree of hepatomegaly and evidence of sigmoid diverticulosis. * MRCP findings were similar to CT of the abdomen and pelvis findings. * complaine of rectal bleeding again today; GI informed and recommends CT abdomen and pelvis with runoff to evaluate for ischemic colitis * #HYpoxia * down to 2L of oxygen now. * Titrate oxygen to maintain saturation above 90%. * Breathing treatments bronchodilators. * #Severe protein calorie malnutrition * patient weighs only 116 pounds, and admits to rapid weight loss over the last few weeks. * nutrition on board * #TYpe 2 diabetes mellitus with peripheral neuropathy * not on insulin. ISS. accuchecks ACHS * A1C is 5.9. * #Leucocytosis * resolved. Down to 10.1 * not on any antibiotics. NO clear source of infection * likely reactive. Will monitor * COPD: not in exacerbation. Breathing treatment with bronchodilators. #Benign essential tremors: on primidone #Anxiety and depression; on bupropion #Nicotine dependence: counseled to quit DVT prophylaxis; SCDs Charges/Coding Visit Charges Inpatient E&M: 53718 Subs Hosp L2
[2022-11-12] MEDS: 0.9% Saline Lock 10 ML Syringe IV ×2 (10:33→21:18)
[2022-11-12 10:35] VITALS: BP 124/67; PULSE 66; RESP 19; TEMP 36.9; O2SAT 96
[2022-11-12] MEDS: Tamsulosin HCl 0.4 MG Capsule PO (10:39)
[2022-11-12] MEDS: buPROPion (SR) 150 MG Tablet.SA PO ×2 (10:39→21:21)
[2022-11-12] MEDS: Primidone 50 MG Tablet PO ×2 (10:40→21:21)
[2022-11-12 12:49] LABS: Bedside Glucose 132 mg/dL (74-106)
[2022-11-12 15:30] VITALS: BP 115/52; PULSE 84; RESP 20; TEMP 36.9; O2SAT 92
[2022-11-12 17:45] LABS: Bedside Glucose 112 mg/dL (74-106)
[2022-11-12 19:23] VITALS: PULSE 80; RESP 18; O2SAT 91
[2022-11-12 21:16] VITALS: BP 133/73; PULSE 81; RESP 18; TEMP 36.9; O2SAT 94
[2022-11-12] MEDS: Gabapentin 300 MG Capsule PO (21:18)
[2022-11-12] MEDS: Latanoprost 0.005% 1 Bottle 1 DRP OPHTHALMIC (21:21)
[2022-11-13] LABS: Bedside Glucose 104 mg/dL (74-106)
[2022-11-13 03:15] VITALS: BP 116/74; PULSE 77; RESP 18; TEMP 36.9; O2SAT 93
[2022-11-13 05:46] VITALS: BMI 18.5
[2022-11-13 06:05] LABS: Bedside Glucose 125 mg/dL (74-106)
[2022-11-13 06:21] LABS: Absolute Lymphocyte Count 1.18 X10^3/uL (0.83-4.51); Absolute Neutrophil Count 4.8 X10^3/uL (2.0-7.7); Basophil# 0.04 X10^3/uL; Basophil% 0.5 % (0-1); Eosinophil# 0.11 X10^3/uL; Eosinophils% 1.5 % (0-5); Hematocrit 39.4 % (40-54); Hemoglobin 13.4 g/dL (13.0-16.5); Lymphocyte # 1.18 X10^3/ul (0.83-4.51); Lymphocyte % 16.2 % (19-41); Mean Corpuscular Hgb 33.7 pg (27.0-32.0); Monocyte# 1.15 X10^3/uL; Monocyte% 15.8 % (0-10); NRBC Flagged by Analyzer 0 % (0-5); Neutrophil # 4.78 X10^3/uL (2.7-7.7); Neutrophil % 65.6 % (47-70); Platelet Count 217 K/mm3 (150-450); RBC Distribution Width SD 51.8 fl (35.1-43.9); Red Blood Count 3.98 M/mm3 (4.6-6.2); White Blood Count 7.3 K/mm3 (4.4-11.0)
[2022-11-13 06:51] LABS: Anion Gap 3 (5-15); BUN 16 mg/dL (7-18); BUN/Creat Ratio 22.3 RATIO (10-20); Calcium,Total 8.2 mg/dL (8.5-10.1); Chloride 100 mmol/L (98-107); Creatinine, Serum 0.72 mg/dL (0.70-1.30); EST Glomerular Filtration Rate 114 mL/min (>60); Est Glom Filt Rate - Afr Amer 138 mL/min (>60); Estimated Creatinine Clearance 52.25 ml/min; Glucose 106 mg/dL (74-106); Potassium 3.8 mmol/L (3.5-5.1); Sodium Level 136 mmol/L (136-145)
[2022-11-13 07:08] VITALS: PULSE 81; RESP 18; O2SAT 90
[2022-11-13] MEDS: Budesonide Respules 0.5 MG/2 ML AMPUL.NEB. INHALATION (07:08)
[2022-11-13 08:00] VITALS: O2SAT 91
[2022-11-13 09:15] VITALS: BP 127/77; PULSE 80; RESP 18; TEMP 36.9; O2SAT 95
--- NOTE | 2022-11-13 09:34 | CASEMGMT ---
Addendum entered by Sofy Sevilla 11/13/22 10:56: Per Shakira @ [facility], they are able to accept pt w/SOC 11/16 as long as pt goes to Dr Mayes's appt on 11/15. Pt made aware. Addendum entered by Sofy Sevilla 11/13/22 10:06: Correction: referral made w/Shakira @ [facility]. Awaiting acceptance. Call to Dr Mayes's office and appt scheduled for 11/15/22 @ 2:40 PM, as Dr Mayes requires appt's in office prior to following for HHC. Pt made aware of appt on 11/15 and this was added in d/c plan. Original Note: DUDLEY GUEVARA NOTE: RN CM to room. Introduced self and role. Pt resting in bed. Inquired what HHC is preferred. Pt states is not sure and to talk w/his . Call to while in room w/pt. states [facility]HC is 1st choice. states she can bring in pt's portable O2 tank to go home on @ d/c. They do not have a pulse ox. RN CM recommended they get one. states it is affordable for them to buy one. Backline message sent to Yanique @ [facility] and referral made for HHC: SN, PT/OT. Awaiting response re: acceptance. Call to [place] and spoke w/[facility]. Verified pt's home O2 is 2 l/m continuous. Ben RENTERIA RN, CM
[2022-11-13] MEDS: Primidone 50 MG Tablet PO (10:35)
--- NOTE | 2022-11-13 11:07 | DCINST_ITS ---
Discharge Instructions Diet Discharge Diet: No restrictions Activity Discharge Activity: Return to Normal Activity Weight Bearing Status: Full weight bearing Follow Up Care Test Results: Test results from this visit will be discussed in further detail at your follow- up appointment, if applicable. Discharge Plan Admission Admit Date/Time: 11/08/22 23:04 Primary Reason for Your Visit: Ischemic colitis, gastric ulcer Attending Provider: Ulisses Miller Primary Care Provider: Damon Mayes Chi Consulting Providers: Irina Sanchez; Lucita Crespo Instructions Additional Instructions / Restrictions: Wear home oxygen continuously at 2 L Discharge Orders/Prescriptions Prescriptions: New nicotine 21 mg/24 hr Patch 24 Hour 21 mg transdermal DAILY Qty: 28 0RF pantoprazole [Protonix] 40 mg tablet,delayed release (DR/EC) 40 mg PO BID Qty: 60 0RF Continued bupropion HCl 150 mg tablet sustained-release 12 hr 150 mg PO Q12H Patient Comments: take 1 tablet by mouth twice a day gabapentin 300 mg capsule 300 mg PO QHS Patient Comments: take 1 capsule by mouth at bedtime latanoprost 0.005 % drops 1 drp ophthalmic (eye) QHS Patient Comments: INSTILL 1 DROP INTO BOTH EYES AT BEDTIME primidone 50 mg tablet 50 mg PO Q12H tamsulosin 0.4 mg capsule 0.4 mg PO Q24H Anoro Ellipta 62.5-25 mcg/actuation blister with device 1 inh INHALATION Q24H Patient Comments: inhale 1 puff by mouth once daily albuterol sulfate 90 mcg/actuation HFA aerosol inhaler 2 inh INHALATION Q4H PRN (Reason: SOB) Patient Comments: INHALE 2 PUFFS BY MOUTH AND INTO THE LUNGS EVERY 4 HOURS Referrals / Follow Up: Damon Mayes Chi, MD [Primary Care Provider] - 11/15/22 2:40 pm Disposition Disposition (needs filled in before D/C Order can be placed): Home Health Service
--- NOTE | 2022-11-13 11:15 | DS.PCM_ITS ---
Providers Date of Admission: 11/08/22 Date of Discharge: 11/13/22 Primary Care Physician: Dr. Damon Mayes MD Consultations 11/09/22 02:18 Consult: Gastroenterology Routine Consulting Provider: [facility] Reason for Consult: GI bleed EMERGENT Consult: No MD Notified: Yes Date Notified: 11/08/22 Time Notified: 23:06 Method of Notification: ED Physician Initiated Reason For Visit: GI BLEED Diagnosis Discharge Diagnosis (1) GI bleed: Status: Acute Code(s): K92.2 - Gastrointestinal hemorrhage, unspecified Qualifiers: GI bleed type/associated pathology: anorectal hemorrhage Qualified Code(s): K62.5 - Hemorrhage of anus and rectum Plan 1. Lower GI hemorrhage secondary to ischemic colitis #2 gastric ulcer #3 hypoxia-secondary to chronic obstructive pulmonary disease #4 type 2 diabetes #5 chronic obstructive pulmonary disease Protein and caloric malnutrition was ruled out Medications at Discharge Home Medications albuterol sulfate 90 mcg/actuation aerosol inhaler 2 inh inhalation Q4H PRN SOB 11/08/22 bupropion HCl 150 mg tablet,12 hr sustained-release 150 mg PO Q12H 11/08/22 gabapentin 300 mg capsule 300 mg PO QHS 11/08/22 latanoprost 0.005 % eye drops 1 drp ophthalmic (eye) QHS 11/08/22 primidone 50 mg tablet 50 mg PO Q12H 11/08/22 tamsulosin 0.4 mg capsule 0.4 mg PO Q24H 11/08/22 umeclidinium 62.5 mcg-vilanterol 25 mcg/actuation powdr for inhalation (Anoro Ellipta) 1 inh inhalation Q24H 11/08/22 nicotine 21 mg/24 hr daily transdermal patch 21 mg transdermal DAILY #28 ea 11/13/22 pantoprazole 40 mg tablet,delayed release (Protonix) 40 mg PO BID #60 tabs 11/13/22 Hospital Course Operations None Procedures Colonoscopy and EGD Summary of Care Provided Minutes Spent on Discharge: 31 Hospital Course: 72-year-old white male presented to the emergency room at [facility] with complaints of diarrhea, he also admitted to having blood in the stool and having abdominal cramping. Work-up in the emergency room showed his white blood cell count to be elevated at 13.3, hemoglobin was 17.3, CT of the abdomen and pelvis with IV contrast was obtained which did not show any acute process. On rectal examination he had bright red blood per rectum. Patient admitted to a 47 pound weight loss over the last several weeks. Patient was admitted to PCU, labs were monitored, he did not need any blood transfusion. Patient underwent a colonoscopy and an EGD, colonoscopy showed evidence of ischemic colitis, EGD showed evidence of a nonbleeding gastric ulcer. Patient was noted to be hypoxic and was felt to have COPD, on 11/13/2022, patient was seen and examined: On examination he appeared in good health and spirits. Vital signs as documented. Skin warm and dry and without overt rashes. Neck without JVD, neck was supple, trachea midline, thyroid was normal. Lungs clear bilaterally, normal air movement was noted. Heart exam notable for regular rhyth m, normal sounds and absence of murmurs, rubs or gallops. Abdomen unremarkable and without evidence of organomegaly, masses, or abdominal aortic enlargement. Bowel sounds are present, abdomen is not distended. Extremities nonedematous, no cyanosis was noted, no clubbing was noted. Neuro: Cranial nerves II through XII are grossly intact, no focal motor deficits were noted, sensation to light touch and pinprick intact, motor exam 5/5 throughout. Psych: Patient is alert and oriented x3, he does not appear anxious or depressed, he does not appear agitated. Patient required 2 L of oxygen via nasal cannula continuously at rest and during activities, patient already had oxygen at home. Patient appeared stable for discharge home on 11/13/2022 in stable condition. Patient was seen by nutritio nal services who did not feel he had evidence of malnutrition. Weight / BMI Weight Weight: 57 kg Body Mass Index (BMI) 18.5 ABG / Lab / Microbiology Data 11/13/22 06:10 11/13/22 06:10 Laboratory: Laboratory Results - last 24 hr 11/12/22 12:29: POC Glucose 132 H 11/12/22 17:21: POC Glucose 112 H 11/12/22 23:39: POC Glucose 104 11/13/22 05:43: POC Glucose 125 H 11/13/22 06:10: WBC 7.3, RBC 3.98 L, Hgb 13.4, Hct 39.4 L, MCV 99.0 H, MCH 33.7 H, MCHC 34.0, RDW Std Deviation 51.8 H, RDW Coeff of Sulema 14.0, Plt Count 217, MPV 9.0, Immature Gran % (Auto) 0.400, Neut % (Auto) 65.6, Lymph % (Auto) 16.2 L , [place] % (Auto) 15.8 H, Eos % (Auto) 1.5, Baso % (Auto) 0.5, Absolute Neuts (auto) 4.8, Absolute Lymphs (auto) 1.18, Nucleated RBC % 0, Sodium 136, Potassium 3.8, Chloride 100, Carbon Dioxide 33.0 H, Anion Gap 3 L, BUN 16, Creatinine 0.72, Estim Creat Clear Calc 52.25, Est GFR (MDRD) Af Amer 138, Est GFR (MDRD) Non-Af 114, BUN/Creatinine Ratio 22.3 H, Glucose 106, Calcium 8.2 L Microbiology: Microbiology 11/10/22 02:08 Stool C. difficile GDH Antigen & Toxins - Final 11/10/22 02:08 Stool C. difficile DNA Amplification - Final 11/09/22 17:45 Stool Enteric Bacteriology - Final 11/08/22 22:44 Stool Stool Occult Blood (IZABELLA) - Final Occult Blood Positive Radiography Diagnostic Testing: Radiology Impression MRCP 11/10/22 07:29 IMPRESSION: Cholelithiasis with nonspecific gallbladder distention. Normal common bile duct without evidence of choledocholithiasis. Pending Final Proof Editing Abdomen/Pelvis CTA 11/10/22 12:55 IMPRESSION: Multiple small gallstones. Minimally dilated gallbladder. Stable marked degree of hepatomegaly. Limited evaluation of the small and large bowel due to lack of oral contrast. Sigmoid diverticulosis with thickening of the sigmoid colon. Distended urinary bladder and prostatic enlargement. Electronically Signed: José Rosen MD at 15:35 EDT , ADDENDUM: 11/12/22 1155 IMPRESSION: undefined ADDENDUM: 11/12/22 1203 IMPRESSION: undefined ADDENDUM: 11/12/22 1208 IMPRESSION: undefined ADDENDUM: 11/12/22 1208 IMPRESSION: Multiple small gallstones. Minimally dilated gallbladder. Stable marked degree of hepatomegaly. Limited evaluation of the small and large bowel due to lack of oral contrast. Sigmoid diverticulosis with thickening of the sigmoid colon. Distended urinary bladder and prostatic enlargement. Electronically Signed: José Rosen MD at 15:35 EDT , D/C Instructions Discharge Diet: No restrictions Weight Bearing Status: Full weight bearing Meaningful Use Info Meaningful Use Diagnoses (Choose all that apply): None applicable Discharge Plan Admission Admit Date/Time: 11/08/22 23:04 Primary Reason for Your Visit: Ischemic colitis, gastric ulcer Attending Provider: Ulisses Miller Primary Care Provider: Damon Mayes Chi Consulting Providers: Irina Sanchez; Lucita Crespo Instructions Additional Instructions / Restrictions: Wear home oxygen continuously at 2 L. Patient will need to see Dr. Mayes prior to [facility] Home Health starting care, see appointment Discharge Orders/Prescriptions Prescriptions: New nicotine 21 mg/24 hr Patch 24 Hour 21 mg transdermal DAILY Qty: 28 0RF pantoprazole [Protonix] 40 mg tablet,delayed release (DR/EC) 40 mg PO BID Qty: 60 0RF Continued bupropion HCl 150 mg tablet sustained-release 12 hr 150 mg PO Q12H Patient Comments: take 1 tablet by mouth twice a day gabapentin 300 mg capsule 300 mg PO QHS Patient Comments: take 1 capsule by mouth at bedtime latanoprost 0.005 % drops 1 drp ophthalmic (eye) QHS Patient Comments: INSTILL 1 DROP INTO BOTH EYES AT BEDTIME primidone 50 mg tablet 50 mg PO Q12H tamsulosin 0.4 mg capsule 0.4 mg PO Q24H Anoro Ellipta 62.5-25 mcg/actuation blister with device 1 inh INHALATION Q24H Patient Comments: inhale 1 puff by mouth once daily albuterol sulfate 90 mcg/actuation HFA aerosol inhaler 2 inh INHALATION Q4H PRN (Reason: SOB) Patient Comments: INHALE 2 PUFFS BY MOUTH AND INTO THE LUNGS EVERY 4 HOURS Referrals / Follow Up: Damon Mayes Chi, MD [Primary Care Provider] - 11/15/22 2:40 pm Disposition Disposition (needs filled in before D/C Order can be placed): Home Health Service Charges/Coding Visit Charges Inpatient E&M: 06954 Disch Hosp >30min
[2022-11-13] MEDS: Tamsulosin HCl 0.4 MG Capsule PO (11:40)
[2022-11-13] MEDS: buPROPion (SR) 150 MG Tablet.SA PO (11:40)
[2022-11-13] MEDS: Insulin Lispro 100 UNIT/ML INSULN.PEN SC (11:44)
--- NOTE | 2022-11-13 11:45 | PHA.DC.MC.R ---
Pharmacy [facility] has performed discharge medication reconciliation and counseling for this patient. 1. NICOTINE PATCH 21MG TOPICAL DAILY 2. PANTOPRAZOLE 40MG PO BID The patient's discharge medication list was reviewed for discrepancies and discrepancies were resolved. The patient was counseled on the following discharge medications and changes in medications for homegoing were reviewed. The Reason for Use, instructions for use, and potential side effects were reviewed for all new medications. The patient's questions regarding all of their medications were answered. The patient was able to verbally demonstrate an understanding of their discharge medications. Patient counseled by pharmacy internLuz. Medications at Discharge Home Medications albuterol sulfate 90 mcg/actuation aerosol inhaler 2 inh inhalation Q4H PRN SOB 11/08/22 bupropion HCl 150 mg tablet,12 hr sustained-release 150 mg PO Q12H 11/08/22 gabapentin 300 mg capsule 300 mg PO QHS 11/08/22 latanoprost 0.005 % eye drops 1 drp ophthalmic (eye) QHS 11/08/22 primidone 50 mg tablet 50 mg PO Q12H 11/08/22 tamsulosin 0.4 mg capsule 0.4 mg PO Q24H 11/08/22 umeclidinium 62.5 mcg-vilanterol 25 mcg/actuation powdr for inhalation (Anoro Ellipta) 1 inh inhalation Q24H 11/08/22 nicotine 21 mg/24 hr daily transdermal patch 21 mg transdermal DAILY #28 ea 11/13/22 pantoprazole 40 mg tablet,delayed release (Protonix) 40 mg PO BID #60 tabs 11/13/22
[2022-11-13 11:47] VITALS: O2SAT 87; O2SAT 91; O2SAT 95
[2022-11-13 12:05] LABS: Bedside Glucose 160 mg/dL (74-106)
== END 2022-11-13 14:00 | disposition home health service (06) | DRG 393 ==
LOC: ED 23:17 → PCU 23:27
PROVIDERS: Anesthesiology; Internal Medicine Gastroenterology; Student in an Organized Health Care Education/Training Program; Admitting Provider Family Medicine; Emergency Provider Student in an Organized Health Care Education/Training Program; PCP Family Medicine Geriatric Medicine; Visit Provider Internal Medicine
PROC: 0DJD8ZZ Inspection of Lower Intestinal Tract, Via Natural or Artificial Opening Endoscopic (ICD-10-PCS; CPT 45378; principal; 2022-11-10 11:25)
DX: K55.9 Vascular disorder of intestine, unspecified (principal); K25.4 Chronic or unspecified gastric ulcer with hemorrhage; K80.10 Calculus of gallbladder with chronic cholecystitis without obstruction; K22.10 Ulcer of esophagus without bleeding; Z68.1 Body mass index [BMI] 19.9 or less, adult; E11.42 Type 2 diabetes mellitus with diabetic polyneuropathy; E11.51 Type 2 diabetes mellitus with diabetic peripheral angiopathy without gangrene; J44.9 Chronic obstructive pulmonary disease, unspecified; I73.9 Peripheral vascular disease, unspecified; E11.65 Type 2 diabetes mellitus with hyperglycemia; F32.A Depression, unspecified; K83.8 Other specified diseases of biliary tract; G47.33 Obstructive sleep apnea (adult) (pediatric); G25.0 Essential tremor; F17.210 Nicotine dependence, cigarettes, uncomplicated; K44.9 Diaphragmatic hernia without obstruction or gangrene; K63.5 Polyp of colon; K57.30 Diverticulosis of large intestine without perforation or abscess without bleeding; R63.4 Abnormal weight loss; K26.9 Duodenal ulcer, unspecified as acute or chronic, without hemorrhage or perforation; R09.02 Hypoxemia; N40.0 Benign prostatic hyperplasia without lower urinary tract symptoms; R16.0 Hepatomegaly, not elsewhere classified
CPT/HCPCS: 36415; 74174; 74177; 74181; 80048; 80053; 80076; 82274; 82962; 83036; 83690; 83735; 84100; 84450; 84460; 85014; 85018; 85025; 85610; 85730; 87177; 87209; 87493; 87506; 88305; 93005; 94640; 94668; 97110; 97162; 97166; 97530; 97535; 97802; 99284; J7030; J7050; J7120; Q9967; A4216; J2405

== ENCOUNTER → 2022-11-15 | Outpatient (CLI) | payer MEDICARE, OTHER, SELFPAY ==
[2022-11-15 16:50] LABS: Absolute Lymphocyte Count 1.34 X10^3/uL (0.83-4.51); Absolute Neutrophil Count 5.6 X10^3/uL (2.0-7.7); Basophil# 0.05 X10^3/uL; Basophil% 0.6 % (0-1); Eosinophil# 0.07 X10^3/uL; Eosinophils% 0.8 % (0-5); Hematocrit 41.1 % (40-54); Hemoglobin 13.5 g/dL (13.0-16.5); Lymphocyte # 1.34 X10^3/ul (0.83-4.51); Mean Corp Hgb Conc 32.8 g/dL (32-36); Mean Corpuscular Hgb 33.2 pg (27.0-32.0); Mean Platelet Vol. 9.7 fl (6.2-12.0); Monocyte# 1.28 X10^3/uL; Monocyte% 15.2 % (0-10); NRBC Flagged by Analyzer 0 % (0-5); Neutrophil # 5.59 X10^3/uL (2.7-7.7); Neutrophil % 66.6 % (47-70); Platelet Count 294 K/mm3 (150-450); RBC Distribution Width CV 14.6 % (11.6-14.6); RBC Distribution Width SD 53.9 fl (35.1-43.9); Red Blood Count 4.07 M/mm3 (4.6-6.2); White Blood Count 8.4 K/mm3 (4.4-11.0)
== END | disposition home or self-care (01) ==
LOC: POLAB3 15:24
PROVIDERS: PCP Family Medicine Geriatric Medicine; Visit Provider Family Medicine Geriatric Medicine
DX: K62.5 Hemorrhage of anus and rectum (principal)
CPT/HCPCS: 36415; 85025

== ENCOUNTER → 2022-12-25 | Outpatient (CLI) | payer MEDICARE, OTHER, SELFPAY ==
[2022-12-25 14:39] LABS: Absolute Lymphocyte Count 1.92 X10^3/uL (0.83-4.51); Absolute Neutrophil Count 3.7 X10^3/uL (2.0-7.7); Basophil# 0.04 X10^3/uL; Basophil% 0.6 % (0-1); Eosinophil# 0.27 X10^3/uL; Hemoglobin 14.8 g/dL (13.0-16.5); Lymphocyte # 1.92 X10^3/ul (0.83-4.51); Lymphocyte % 28.7 % (19-41); Mean Corp Hgb Conc 33.6 g/dL (32-36); Mean Corpuscular Hgb 34.2 pg (27.0-32.0); Mean Corpuscular Volume 101.6 fL (80-94); Mean Platelet Vol. 9.3 fl (6.2-12.0); Monocyte# 0.74 X10^3/uL; Monocyte% 11.1 % (0-10); NRBC Flagged by Analyzer 0 % (0-5); Neutrophil % 55.3 % (47-70); Platelet Count 302 K/mm3 (150-450); RBC Distribution Width CV 15.8 % (11.6-14.6); RBC Distribution Width SD 58.4 fl (35.1-43.9); Red Blood Count 4.33 M/mm3 (4.6-6.2); White Blood Count 6.7 K/mm3 (4.4-11.0)
[2022-12-25 14:57] LABS: ALB/GLOB Ratio 0.8 RATIO (0.9-2.4); AST(SGOT) 16 U/L (15-37); Alanine Aminotransfer ALT/SGPT 24 U/L (16-61); Albumin, Serum 3.3 g/dL (3.2-5.0); Alkaline Phosphatase 99 U/L (45-117); Anion Gap 3 (5-15); BUN 19 mg/dL (7-18); BUN/Creat Ratio 19.2 RATIO (10-20); Calcium,Total 8.9 mg/dL (8.5-10.1); Chloride 106 mmol/L (98-107); Creatinine, Serum 0.99 mg/dL (0.70-1.30); EST Glomerular Filtration Rate 78 mL/min (>60); Est Glom Filt Rate - Afr Amer 95 mL/min (>60); Globulin 4.2 g/dL (2.2-4.2); Glucose 87 mg/dL (74-106); Potassium 4.2 mmol/L (3.5-5.1); Protein, Total 7.5 g/dL (6.4-8.2); Sodium Level 140 mmol/L (136-145); Thyroid Stim Hormone (TSH) 1.03 uIU/mL (0.358-3.74)
[2022-12-25 18:43] LABS: Vitamin D,25 Hydroxy 62.6 ng/mL
== END | disposition home or self-care (01) ==
LOC: POLAB3 13:37
PROVIDERS: PCP Family Medicine Geriatric Medicine; Visit Provider Family Medicine Geriatric Medicine
DX: E11.65 Type 2 diabetes mellitus with hyperglycemia (principal); R53.83 Other fatigue; E55.9 Vitamin D deficiency, unspecified
CPT/HCPCS: 36415; 80053; 82306; 84443; 85025

== ENCOUNTER 2023-06-08 11:00 | Day surgery (SDC) | payer MEDICARE, OTHER, SELFPAY ==
--- NOTE | 2023-06-08 | MASS_PTH ---
PATHOLOGY RESULTS PATIENT: NIKOLAI MTZ LOC: [facility] [place] U#:[id number] AGE/SX: 73/M ROOM: RE06/08/[address]: Dr. Mayra Chapman MD : 1950 BED: DIS: 06/08/2023 SPEC #: [id number] RECD: 06/08/23 17:02 STATUS: ABILIO BAILEY #: [id number] GERALDINE: 06/08/23 00:[address]: Mayra Chapman DEPT: SURGICAL PATHOLOGY RECD BY: Osmin Shah ENTERED: 06/11/23 09:36 SP TYPE: Mass OTHR DR: Dr. 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 Overlying skin with no pathologic change. AM:jose 06/13/2023 MICROSCOPIC DESCRIPTION Slides are reviewed. GROSS DESCRIPTION Received in fixative is one container labeled with the patient's name and designated excision subcutaneous mass right chest. The specimen consists of firm, rubbery sheldon-white soft tissue. Measuring 1.5 x 1.0 x 0.7cm. Specimen is inked, bisected and totally submitted into one cassette. TASIA/ 06/11/2023 TC:2 CPT:43013
[2023-06-08 11:34] VITALS: BP 108/73; PULSE 76; RESP 18; TEMP 36.7; O2SAT 91; BMI 19.5
--- NOTE | 2023-06-08 12:42 | PCM.HP.BLA ---
History and Physical Date of Admission: 06/08/23 The patient is examined. There are no changes from the prior H&P dated 05/29/2023. He presents with a right breast subareolar mass. He presents for excision with submission for pathologic evaluation. Assessment & Plan Assessment/Plan (1) Neoplasm of uncertain behavior of connective and other soft tissue: PLAN: Plan For excision subcutaneous mass right breast with submission for pathologic evaluation.
[2023-06-08 12:47] VITALS: BP 117/71; BP 124/77; BP 125/85; O2SAT 86; O2SAT 87; O2SAT 88; O2SAT 90
[2023-06-08] MEDS: Lidocaine 1% /Epi 1:100 9 ML, Sodium Bicarbonate 1 MEQ OPERA.SITE (13:28)
--- NOTE | 2023-06-08 14:02 | DCINST_ITS ---
Discharge Instructions Dressing / Incision Additional Dressing/Incision Instructions:: Try to keep the dressing dry. Do not remove tape until seen in the office. Take the oral antibiotic (Keflex) 2 x a day until finished. Follow Up Care Please Follow Up With: Mayra Chapman MD When: in 1-2 weeks Test Results: Test results from this visit will be discussed in further detail at your follow- up appointment, if applicable. Discharge Plan Admission Attending Provider: Mayra Chapman Primary Care Provider: Damon Mayes Chi Discharge Orders/Prescriptions Prescriptions: New cephalexin 500 mg capsule 500 mg PO BID 7 Days Qty: 14 0RF No Action Geritol Complete 16 mg iron- 0.38 mg tablet 1 tab PO DAILY acetaminophen 500 mg capsule 500 mg PO Q6H PRN (Reason: pain) bupropion HCl 150 mg tablet sustained-release 12 hr 150 mg PO Q12H Patient Comments: take 1 tablet by mouth twice a day gabapentin 300 mg capsule 300 mg PO QHS Patient Comments: take 1 capsule by mouth at bedtime latanoprost 0.005 % drops 1 drp ophthalmic (eye) QHS Patient Comments: INSTILL 1 DROP INTO BOTH EYES AT BEDTIME primidone 50 mg tablet 50 mg PO Q12H tamsulosin 0.4 mg capsule 0.4 mg PO Q24H Anoro Ellipta 62.5-25 mcg/actuation blister with device 1 inh INHALATION Q24H Patient Comments: inhale 1 puff by mouth once daily albuterol sulfate 90 mcg/actuation HFA aerosol inhaler 2 inh INHALATION Q4H PRN (Reason: SOB) Patient Comments: INHALE 2 PUFFS BY MOUTH AND INTO THE LUNGS EVERY 4 HOURS pantoprazole [Protonix] 40 mg tablet,delayed release (DR/EC) 40 mg PO BID Qty: 60 0RF Referrals / Follow Up: Damon Mayes Chi, MD [Primary Care Provider] - Disposition Disposition (needs filled in before D/C Order can be placed): Home, Self Care
--- NOTE | 2023-06-08 14:10 | PCM.OPRPT ---
Problems Associated Problem List Diagnoses (1) Neoplasm of uncertain behavior of connective and other soft tissue: Report of Operation Date of Procedure: 06/08/23 Pre-Operative Diagnosis: Subcutaneous mass right breast Post-Operative Diagnosis: Same Surgery/Procedure Performed:: Excision subcutaneous mass right breast (2.5 cm) Surgeon: Mayra Chapman jute bag clipper: DUDLEY COOKboard liner operator Type of Anesthesia: Local Specimen's removed: Subcutaneous mass right breast Drains: None Estimated Blood Loss (mL): Minimal Description of Procedure: The patient presents with a enlarging subcutaneous mass of the right breast. The patient states that this has drained in the past. He presents for excision of the mass and submission for pathologic evaluation. The patient is brought to the operating room placed on the operating room table in supine position. The right breast is prepped and draped in the usual sterile fashion. 1% Xylocaine with epinephrine buffered with sodium bicarb is used for local anesthetic. Following this, an elliptical incision is made over top of the mass and carried down through the subcutaneous tissue until the mass is encountered. Some greenish drainage was encountered. The wall of the cyst was then carefully enucleated from its bed. This was then passed off the operative field to be sent to pathology. Hemostasis is controlled with cautery. The incisions then closed in layers using a Monocryl suture in the subcutaneous tissue. Skin edges are approximated with running subcuticular Monocryl suture. Dermabond and Steri-Strips were placed on the incision. He tolerated the procedure well was taken to the recovery area in an awake and stable condition. Needle and sponge counts are correct. Complications None Admit VTE Documentation VTE Mechan Device Prophylaxis: None Reason prophylaxis not ordered:: Treatment Not Indicated
[2023-06-08 14:25] VITALS: BP 106/69; BP 125/85; PULSE 77; RESP 18; TEMP 37.2; O2SAT 91
[2023-06-08 14:34] VITALS: BP 125/85
== END 2023-06-08 14:46 | disposition home or self-care (01) ==
LOC: SDC 11:01 → AC 11:05
PROVIDERS: PCP Family Medicine Geriatric Medicine; Referring Provider Plastic Surgery; Visit Provider Plastic Surgery
PROC: (CPT 19120; principal; 2023-06-08 12:45)
DX: D48.19 Other specified neoplasm of uncertain behavior of connective and other soft tissue (principal); N63.10 Unspecified lump in the right breast, unspecified quadrant
CPT/HCPCS: 19120; 88305

== ENCOUNTER → 2023-06-28 | Outpatient (CLI) | payer MEDICARE, OTHER, SELFPAY ==
[2023-06-28 14:12] LABS: Absolute Lymphocyte Count 1.42 X10^3/uL (0.83-4.51); Absolute Neutrophil Count 2.8 X10^3/uL (2.0-7.7); Basophil# 0.05 X10^3/uL; Eosinophil# 0.07 X10^3/uL; Eosinophils% 1.4 % (0-5); Hematocrit 46.7 % (40-54); Hemoglobin 15.6 g/dL (13.0-16.5); Lymphocyte # 1.42 X10^3/ul (0.83-4.51); Lymphocyte % 28.5 % (19-41); Mean Corp Hgb Conc 33.4 g/dL (32-36); Mean Corpuscular Hgb 33.7 pg (27.0-32.0); Mean Corpuscular Volume 100.9 fL (80-94); Mean Platelet Vol. 9.8 fl (6.2-12.0); Monocyte# 0.61 X10^3/uL; Monocyte% 12.2 % (0-10); NRBC Flagged by Analyzer 0 % (0-5); Neutrophil # 2.83 X10^3/uL (2.7-7.7); Neutrophil % 56.7 % (47-70); Platelet Count 206 K/mm3 (150-450); RBC Distribution Width CV 15.3 % (11.6-14.6); Red Blood Count 4.63 M/mm3 (4.6-6.2)
[2023-06-28 14:29] LABS: Vitamin D,25 Hydroxy 48.2 ng/mL
[2023-06-28 14:35] LABS: ALB/GLOB Ratio 0.8 RATIO (0.9-2.4); AST(SGOT) 18 U/L (15-37); Alanine Aminotransfer ALT/SGPT 26 U/L (16-61); Albumin, Serum 3.3 g/dL (3.2-5.0); Alkaline Phosphatase 111 U/L (45-117); Anion Gap 4 (5-15); BUN 15 mg/dL (7-18); BUN/Creat Ratio 15.6 RATIO (10-20); Calcium,Total 8.6 mg/dL (8.5-10.1); Chloride 102 mmol/L (98-107); Creatinine, Serum 0.96 mg/dL (0.70-1.30); EST Glomerular Filtration Rate 81 mL/min (>60); Est Glom Filt Rate - Afr Amer 98 mL/min (>60); Glucose 101 mg/dL (74-106); Potassium 4.1 mmol/L (3.5-5.1); Protein, Total 7.3 g/dL (6.4-8.2); Sodium Level 137 mmol/L (136-145); Thyroid Stim Hormone (TSH) 0.97 uIU/mL (0.358-3.74)
== END | disposition home or self-care (01) ==
LOC: POLAB3 12:49
PROVIDERS: PCP Family Medicine Geriatric Medicine; Visit Provider Family Medicine Geriatric Medicine
DX: E11.65 Type 2 diabetes mellitus with hyperglycemia (principal); R53.83 Other fatigue; E55.9 Vitamin D deficiency, unspecified
CPT/HCPCS: 36415; 80053; 82306; 84443; 85025

== ENCOUNTER 2023-08-15 12:30 | Outpatient (RCR) | payer MEDICARE, OTHER, SELFPAY ==
--- NOTE | 2023-07-06 13:03 | HP.PTEVAL ---
Patient's Visit Information Visit Information Visit Information: NIKOLAI MTZ is a 73 year old M referred to Physical Therapy by Dr. Damon Mayes MD with a diagnosis of Weakness. Date of Evaluation: 07/06/23 Physical Therapist: Andres Medrano, DPT, OCS, CSCS Visit Plan Frequency: 2x /Week Duration: 4-6 Weeks Plan: 2x/week for 4-6 weeks for 1. HS adn psoas stretches to HEP 2. postural, LE and core funcitonal strength to I home program. 3. Work on walking speed in therapy with step length and gait training Subjective Subjective: Dr. Mayes sent him over b/c he lost 40# and no muscle left. He got sick with some vertigo and colitis and sick for almost a year. Did very little. Those problems are gone but now he is weak.. No muscle left. No pain except now and then for joints. Has lyme disease. No dizzyness left. Has glaucoma. 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 No falls lately. No AD needed. Live with adn 3 dogs and cats. One story house, handicap accessible build. Showers walk in.Baiscs ADLS are I. Not employed. Spends day sleeping alot with lyme disease and eating alot. Enjoys fishing. Only exercise is walking to porch to smoke. [place]. Enjoys woodworking but not lately. Shop is not heated. Objective Objective: Walks slowly back to PT with short steps and lacking weight shift but I and safe. Transfers using UE chair I. steps reciprocal with one rail with decent strength. needs to take breathing meds after steps due to SOB. UE AROM WFL and strength at 4-/5 LE strength ankles and knees 4+, hip abd and ext 3, flexion 4 B. max tight HS B at -45 90/90 test and psaos tight also hard to lie flat without back pain. reflexes 2/3 patella and achilles B Sensation WNL to gross light touch in LE B. romberg eo adn ec 30 seconds. Core strength 3+flexion and 3 extension Balance/Special Test Scores Functional Gait Assessment Score: 24 % Disability: 20.0000 Lower Extremity Functional Score: 21 TUG Test Time Seconds: 10 30 Second Chair Rise Test Seconds: 11 Goals Goal 1:: 15 on 30 sec sit to stand to show imprved strength for mobility Goal Time Frame: 4-6 Weeks Goal 2:: Pt feel mobility and strength 50% improved and able to keep up with . Goal Time Frame: 4-6 Weeks Goal 3:: I appropriate HEP to limit future problems Goal Time Frame: 4-6 Weeks Goal 4:: LEFS 40 Goal Time Frame: 4-6 Weeks Rehabilitation Potential Physical Therapy Diagnosis: weakness and slowness and sedentarism making mobility hard. Rehabilitation Potential: Fair Anticipated Interventions Patient/Client Instruction: Educate patient on: Condition and Plan of Care For the Purpose of:: To improve muscle performance and motor function, To increase tolerance to activity/condition/position and To improve gait and locomotor functions Therapeutic Exercise to Include: Strength training, Postural training, Flexibilty training, Gait and locomotor training, Passive ROM and Active ROM For the Purpose of:: To increase ROM, To improve muscle performance and motor function, To increase tolerance to activity/condition/position, To improve ability of physical actions for home/community/work/leisure, To improve gait and locomotor functions and To improve safety with gait Text: Thank you for the opportunity to evaluate your patient. For Medicare and Medicare HMO plans, please review the plan of care and approve it. It will need to be FAXED BACK to us at [phone] for Medicare purposes. For Medicare only, by signing this I certify the plan of care. Please let me know if there are questions or concerns regarding this plan of care. Physician Signature: Date:
--- NOTE | 2023-08-15 13:09 | HP.PTREVAL ---
Re-Evaluation Intro: Dr. Damon Mayes MD, It has been my pleasure to treat RICKEY MTZ over the last 12 visits for Weakness. Please see the progress note below for an update on the physical therapy plan of care! Subjective Subjective: I hope I am better. Got a decent ex program, compliance is tough. Feeling stronger and good but compliance. Spends time mowing and helping at home. To Dr. mayes last Sunday. Objective Objective/Function: Improving 30 sec sit to stand and LEFS overall Big question with Rickey is self admitted questionable compliace to HEP. Plan Plan Plan: f/u one month to check progress with compliance of hep at home and maintenance of current goals which are appropriate. Fair prognosis with compliance Progress ex if needed. Balance/Gait/Functional tests Balance/Special Test Scores Functional Gait Assessment Score: 24 % Disability: 20.0000 Lower Extremity Functional Score: 44 TUG Test Time Seconds: 10 Tug Test: <20 sec.=mostly independent 30 Second Chair Rise Test Seconds: 15 Goals Goals Goal 1:: 15 on 30 sec sit to stand to show imprved strength for mobility Goal Time Frame: 4-6 Weeks Goal Progress: Goal Met Goal 2:: Pt feel mobility and strength 50% improved and able to keep up with . Goal Time Frame: 4-6 Weeks Goal Progress: 75% Goal 3:: I appropriate HEP to limit future problems Goal Time Frame: 4-6 Weeks Goal Progress: Goal Met Goal 4:: LEFS 40 Goal Time Frame: 4-6 Weeks Goal Progress: Goal Met Anticipated Interventions Anticipated Interventions Patient/Client Instruction: Educate patient on: Condition and Plan of Care For the Purpose of:: To improve muscle performance and motor function, To increase tolerance to activity/condition/position and To improve gait and locomotor functions Therapeutic Exercise to Include: Strength training, Postural training, Flexibilty training, Gait and locomotor training, Passive ROM and Active ROM For the Purpose of:: To increase ROM, To improve muscle performance and motor function, To increase tolerance to activity/condition/position, To improve ability of physical actions for home/community/work/leisure, To improve gait and locomotor functions and To improve safety with gait Re-Evaluation Ending Re-evaluation ending: Please do not hesitate to contact me at [phone] by phone or if you have questions or concerns regarding this new plan of care! Sincerely, Andres Medrano, DPT, OCS, CSCS
--- NOTE | 2023-09-18 13:27 | HP.PT.NRP ---
Patient Information Patient Information: NIKOLAI MTZ was seen in my office for initial evaluation on 07/06/23. The following Plan of Care was established for this patient: POC Established Initial Frequency: 2x /Week Initial Duration: 4-6 Weeks Anticipated Interventions Patient/Client Instruction: Educate patient on: Condition and Plan of Care For the Purpose of:: To improve muscle performance and motor function, To increase tolerance to activity/condition/position and To improve gait and locomotor functions Therapeutic Exercise to Include: Strength training, Postural training, Flexibilty training, Gait and locomotor training, Passive ROM and Active ROM For the Purpose of:: To increase ROM, To improve muscle performance and motor function, To increase tolerance to activity/condition/position, To improve ability of physical actions for home/community/work/leisure, To improve gait and locomotor functions and To improve safety with gait Last Seen Last Seen: This patient was last seen in our office 08/15/23. Pertinent comments regarding their Physical therapy will appear below: Pt seen 12 visits of POC and was 75% better. He was to f/u one month to ensure maintenance but called to cancel that visit and did not wish to reschedule. I will discontinue him from my care at this time. At this point I will be discontinuing this patient from physical therapy. I would be happy to see this patient again in the future if found appropriate by the physician. Thank you! Andres Medrano, DPT, OCS, CSCS Balance/Gait/Functional tests Balance/Special Test Scores Functional Gait Assessment Score: 24 % Disability: 20.0000 Lower Extremity Functional Score: 44 TUG Test Time Seconds: 10 Tug Test: <20 sec.=mostly independent 30 Second Chair Rise Test Seconds: 15
== END 2023-08-15 19:00 | disposition home or self-care (01) ==
LOC: PT 12:30
PROVIDERS: PCP Family Medicine Geriatric Medicine; Referring Provider Family Medicine Geriatric Medicine; Visit Provider Family Medicine Geriatric Medicine
DX: R53.1 Weakness (principal)
CPT/HCPCS: 97110; 97116; 97161; 97530

== ENCOUNTER → 2023-09-18 | Outpatient (CLI) | payer MEDICARE, OTHER, SELFPAY ==
--- NOTE | 2023-09-18 16:06 | CT_ITS ---
STUDY: CT CHEST, ABDOMEN T PELVIS WITH CONTRAST REASON FOR EXAM: Male, 73 years old. WEIGHT LOSS RADIATION DOSAGE (If Supplied By Facility): CTDIvol = ( 11.37 ) mGy, DLP = ( 816.29 ) mGycm TECHNIQUE: Transaxial imaging was performed following intravenous administration of 100mL Isovue-370. Multiplanar coronal and sagittal images were reformatted. Individualized dose optimization techniques were used for this CT. COMPARISON: CT abdomen November 10, 2022 FINDINGS: CHEST There is emphysema of the lungs. There are mild interstitial increased opacities. There is left lower lung atelectasis. There is no demonstrated pleural abnormality. There are calcifications of the coronary arteries. There are mitral annular calcifications. There are calcified mediastinal lymph nodes. Normal hilar regions. Normal unenhanced pulmonary arteries. There is atherosclerotic calcification of the aortic arch with tortuosity and elongation of the aortic arch and descending thoracic aorta. There is an increased kyphosis of the thoracic spine. There are multi-level degenerative changes of the thoracic spine. ABDOMEN There is hepatomegaly with diffuse hepatic enlargement. There are multiple gallstones. There are multiple benign calcified granulomata of the spleen. Normal pancreas. Normal bilateral adrenal glands. Normal right kidney. Normal left kidney. Normal visualized stomach. Normal small intestine. There are multiple colonic diverticula consistent with diverticulosis. There is abundant stool. The appendix is visualized and appears normal. There is diffuse atherosclerotic calcification of the abdominal aorta, without a demonstrated aneurysm. Normal inferior vena cava. Normal retroperitoneum. Normal abdominal wall. Normal osseous structures. PELVIS Normal urinary bladder. Normal visualized small intestine. There are multiple colonic diverticula of the sigmoid colon consistent with chronic diverticulosis. There is abundant stool. There is no pelvic fluid. There is no pelvic lymphadenopathy or mass lesion. There are prostatic calcifications. There is atherosclerotic calcification of the pelvic arteries. Normal abdominal wall. Normal osseous structures. CT/CT Chest, Abd, Pel w/Contrast IMPRESSION: Colonic diverticulosis. No obstruction. Multiple gallstones. Hepatomegaly. No biliary dilatation. Left lower lung atelectasis. Emphysema and mild fibrotic densities. Electronically Signed: Colby Griffin MD at 19:25 EDT ,
[2023-09-18 18:31] LABS: CREATININE FINGERSTICK < 1.0 mg/dL (0.70-1.30); EGFR FINGERSTICK > 60.0000 mL/min (>60)
== END | disposition home or self-care (01) ==
LOC: CT 16:04
PROVIDERS: PCP Family Medicine Geriatric Medicine; Visit Provider Family Medicine Geriatric Medicine
DX: R63.4 Abnormal weight loss (principal)
CPT/HCPCS: 71260; 74177; Q9967

== ENCOUNTER → 2024-01-03 | Outpatient (CLI) | payer MEDICARE, OTHER, SELFPAY ==
[2024-01-03 14:38] LABS: Absolute Lymphocyte Count 1.46 X10^3/uL (0.83-4.51); Absolute Neutrophil Count 3.1 X10^3/uL (2.0-7.7); Basophil# 0.04 X10^3/uL; Basophil% 0.8 % (0-1); Eosinophil# 0.09 X10^3/uL; Eosinophils% 1.7 % (0-5); Hemoglobin 14.9 g/dL (13.0-16.5); Lymphocyte # 1.46 X10^3/ul (0.83-4.51); Lymphocyte % 27.4 % (19-41); Mean Corp Hgb Conc 33.1 g/dL (32-36); Mean Corpuscular Hgb 33.2 pg (27.0-32.0); Mean Corpuscular Volume 100.2 fL (80-94); Mean Platelet Vol. 9.4 fl (6.2-12.0); Monocyte% 11.3 % (0-10); NRBC Flagged by Analyzer 0 % (0-5); Neutrophil # 3.12 X10^3/uL (2.7-7.7); Neutrophil % 58.4 % (47-70); Platelet Count 266 K/mm3 (150-450); RBC Distribution Width CV 15.1 % (11.6-14.6); RBC Distribution Width SD 56.2 fl (35.1-43.9); Red Blood Count 4.49 M/mm3 (4.6-6.2); White Blood Count 5.3 K/mm3 (4.4-11.0)
[2024-01-03 15:06] LABS: Vitamin D,25 Hydroxy 45.6 ng/mL
[2024-01-03 15:17] LABS: ALB/GLOB Ratio 0.8 RATIO (0.9-2.4); AST(SGOT) 25 U/L (15-37); Alanine Aminotransfer ALT/SGPT 38 U/L (16-61); Albumin, Serum 3.3 g/dL (3.2-5.0); Alkaline Phosphatase 100 U/L (45-117); Anion Gap 4 (5-15); BUN 11 mg/dL (7-18); BUN/Creat Ratio 12.9 RATIO (10-20); Calcium,Total 9.2 mg/dL (8.5-10.1); Chloride 102 mmol/L (98-107); Creatinine, Serum 0.85 mg/dL (0.70-1.30); EST Glomerular Filtration Rate 93 mL/min (>60); Est Glom Filt Rate - Afr Amer 113 mL/min (>60); Globulin 4.2 g/dL (2.2-4.2); Glucose 85 mg/dL (74-106); Potassium 4.4 mmol/L (3.5-5.1); Protein, Total 7.5 g/dL (6.4-8.2); Sodium Level 137 mmol/L (136-145); Thyroid Stim Hormone (TSH) 0.831 uIU/mL (0.358-3.740)
== END | disposition home or self-care (01) ==
LOC: POLAB3 13:38
PROVIDERS: PCP Family Medicine Geriatric Medicine; Visit Provider Family Medicine Geriatric Medicine
DX: E11.65 Type 2 diabetes mellitus with hyperglycemia (principal); R53.83 Other fatigue; E55.9 Vitamin D deficiency, unspecified
CPT/HCPCS: 36415; 80053; 82306; 84443; 85025

== ENCOUNTER → 2024-05-30 | Outpatient (CLI) | payer MEDICARE, OTHER, SELFPAY ==
[2024-05-30 12:13] LABS: Absolute Lymphocyte Count 0.89 X10^3/uL (0.83-4.51); Absolute Neutrophil Count 4.8 X10^3/uL (2.0-7.7); Basophil# 0.04 X10^3/uL; Basophil% 0.6 % (0-1); Eosinophil# 0.02 X10^3/uL; Eosinophils% 0.3 % (0-5); Hematocrit 45.9 % (40-54); Hemoglobin 15.8 g/dL (13.0-16.5); Lymphocyte # 0.89 X10^3/ul (0.83-4.51); Lymphocyte % 13.5 % (19-41); Mean Corp Hgb Conc 34.4 g/dL (32-36); Mean Corpuscular Hgb 35.1 pg (27.0-32.0); Mean Platelet Vol. 9.6 fl (6.2-12.0); Monocyte# 0.82 X10^3/uL; Monocyte% 12.5 % (0-10); NRBC Flagged by Analyzer 0 % (0-5); Neutrophil # 4.79 X10^3/uL (2.7-7.7); Neutrophil % 72.8 % (47-70); POSITIVE MORPHOLOGY YES; Platelet Count 286 K/mm3 (150-450); RBC Distribution Width CV 18.7 % (11.6-14.6); RBC Distribution Width SD 68.3 fl (35.1-43.9); White Blood Count 6.6 K/mm3 (4.4-11.0)
[2024-05-30 12:14] LABS: Differential Indicated SCAN CRITERIA MET
[2024-05-30 12:59] LABS: ALB/GLOB Ratio 0.9 RATIO (0.9-2.4); AST(SGOT) 31 U/L (<=37); Alanine Aminotransfer ALT/SGPT 31 U/L (<=46); Albumin, Serum 3.1 g/dL (3.4-4.8); Alkaline Phosphatase 142 U/L (40-129); Anion Gap 10 (5-15); BUN 23 mg/dL (4-19); Calcium 8.3 mg/dL (7.6-11.0); Carbon Dioxide 27.9 mmol/L (22.0-29.0); Chloride 101 mmol/L (96-108); Creatinine, Serum 0.85 mg/dL (0.70-1.20); EST Glomerular Filtration Rate 90 (>60); Globulin 3.5 g/dL (2.2-4.2); Glucose 93 mg/dL (70-99); Potassium 4.7 mmol/L (3.3-5.1); Protein, Total 6.6 g/dL (5.9-8.4); Sodium Level 138 mmol/L (133-145); Thyroid Stim Hormone (TSH) 0.806 uIU/mL (0.300-4.200); Total Bilirubin 0.19 mg/dL (0.00-1.30)
[2024-05-30 14:04] LABS: Anisocytosis 1+
== END | disposition home or self-care (01) ==
PROVIDERS: PCP Family Medicine Geriatric Medicine; Referring Provider Family Medicine Geriatric Medicine; Visit Provider Family Medicine Geriatric Medicine
DX: R53.83 Other fatigue (principal); R35.0 Frequency of micturition
CPT/HCPCS: 36415; 80053; 84443; 85025

== ENCOUNTER → 2024-06-05 | Outpatient (CLI) | payer MEDICARE, OTHER, SELFPAY ==
[2024-06-05 09:10] LABS: Color, Urine Yellow (Yellow); Glucose, Dipstick Normal (Normal); Ketone-Dipstick Negative (Negative); Leukocyte Esterase-Dipstick Negative /ul (Negative); Nitrite-Dipstick Negative (Negative); Occult Blood-Urine Negative /ul (Negative); Protein-Dipstick 30 mg/dl (Negative); Urine Bilirubin Dipstick Negative (Negative); Urine Clarity Clear (Clear); Urine Urobilinogen Normal (Normal)
== END | disposition home or self-care (01) ==
LOC: LAB 08:48
PROVIDERS: PCP Family Medicine Geriatric Medicine; Referring Provider Family Medicine Geriatric Medicine; Visit Provider Family Medicine Geriatric Medicine
DX: R35.0 Frequency of micturition (principal)
CPT/HCPCS: 81002

== ENCOUNTER → 2024-07-01 | Outpatient (CLI) | payer MEDICARE, OTHER, SELFPAY ==
[2024-07-01 14:21] LABS: Absolute Neutrophil Count 3.9 X10^3/uL (2.0-7.7); Basophil# 0.03 X10^3/uL; Basophil% 0.5 % (0-1); Eosinophil# 0.04 X10^3/uL; Eosinophils% 0.7 % (0-5); Hematocrit 44.9 % (40-54); Hemoglobin 15.6 g/dL (13.0-16.5); Mean Corp Hgb Conc 34.7 g/dL (32-36); Mean Corpuscular Hgb 35.5 pg (27.0-32.0); Mean Corpuscular Volume 102.3 fL (80-94); Mean Platelet Vol. 9.4 fl (6.2-12.0); Monocyte# 0.55 X10^3/uL; Monocyte% 9.9 % (0-10); NRBC Flagged by Analyzer 0 % (0-5); Neutrophil # 3.92 X10^3/uL (2.7-7.7); Neutrophil % 70.7 % (47-70); Platelet Count 227 K/mm3 (150-450); RBC Distribution Width CV 16.1 % (11.6-14.6); RBC Distribution Width SD 61.6 fl (35.1-43.9); Red Blood Count 4.39 M/mm3 (4.6-6.2); White Blood Count 5.6 K/mm3 (4.4-11.0)
[2024-07-01 15:03] LABS: ALB/GLOB Ratio 0.9 RATIO (0.9-2.4); AST(SGOT) 32 U/L (<=37); Alanine Aminotransfer ALT/SGPT 25 U/L (<=46); Albumin, Serum 3.5 g/dL (3.4-4.8); Alkaline Phosphatase 111 U/L (40-129); Anion Gap 10 (5-15); BUN 13 mg/dL (4-19); BUN/Creat Ratio 19.9 RATIO (10-20); Calcium,Total 8.7 mg/dL (7.6-11.0); Carbon Dioxide 28.5 mmol/L (21.0-32.0); Chloride 98 mmol/L (98-108); Creatinine, Serum 0.68 mg/dL (0.70-1.20); EST Glomerular Filtration Rate 97 (>60); Globulin 3.7 g/dL (2.2-4.2); Glucose 95 mg/dL (70-99); Potassium 4.4 mmol/L (3.3-5.1); Protein, Total 7.2 g/dL (5.9-8.4); Sodium Level 136 mmol/L (133-145); Thyroid Stim Hormone (TSH) 0.827 uIU/mL (0.300-4.200); Total Bilirubin 0.21 mg/dL (0.00-1.30)
== END | disposition home or self-care (01) ==
LOC: LAB 13:58
PROVIDERS: PCP Family Medicine Geriatric Medicine; Referring Provider Family Medicine Geriatric Medicine; Visit Provider Family Medicine Geriatric Medicine
DX: E11.65 Type 2 diabetes mellitus with hyperglycemia (principal); R53.83 Other fatigue; E55.9 Vitamin D deficiency, unspecified
CPT/HCPCS: 36415; 80053; 82306; 84443; 85025

== ENCOUNTER 2024-08-17 13:51 | Emergency (ER) | payer OTHER, SELFPAY ==
[2024-08-17 13:53] VITALS: BP 127/76; PULSE 94; RESP 20; TEMP 36.1; O2SAT 85
[2024-08-17 14:02] VITALS: O2SAT 96
--- NOTE | 2024-08-17 14:02 | EDS_ITS ---
HPI History of Present Illness Chief Complaint: Complaint Detail of Chief Complaint: Difficulty urinating Informant: patient Narrative Narrative: Patient presents to the emergency department complaint difficulty urinating. He has had issues over the last 2 to 3 days. Patient states he is not able to get very much urine out. He has been eating and drinking normally. He does have history of COPD and is supposed to be wearing 2 to 2-1/2 L of O2 but did not have oxygen in transport with. Denies abdominal pain. Denies fever. He has had no nausea or vomiting. Patient has history of COPD and history of diabetes. [facility] Medical History (Updated 08/17/24 @ 15:[address] Yang España, DO) Broken shoulder H/O ulcerative colitis H/O pneumococcal pneumonia Ischemic colitis Diabetes Smoker BiPAP (biphasic positive airway pressure) dependence Asthma GI bleed Diabetes mellitus, type 2 Essential tremor Anxiety and depression Tobacco use MIGUEL A on CPAP Kidney stones COPD (chronic obstructive pulmonary disease) Home Medications ?Medication ?Instructions ?Recorded ?Last Taken ?Type albuterol sulfate 90 mcg/actuation 2 inh inhalation Q4 H PRN SOB 11/08/22 06/08/23 History aerosol inhaler bupropion HCl 150 mg tablet,12 hr 150 mg PO Q12H 11/0806/08/23 History sustained-release gabapentin 300 mg capsule 300 mg PO QHS 11/08/2206/06 History latanoprost 0.005 % eye drops 1 drp ophthalmic (eye) Q HS 11/08/22 06/07/23 History primidone 50 mg tablet 50 mg PO Q12H 11/08/2206/07 History tamsulosin 0.4 mg capsule 0.4 mg PO Q24H 11/08/2210/23 History umeclidinium 62.5 mcg-vilanterol 1 inh inhalation Q24H 11/08/22 06/08/23 History 25 mcg/actuation powdr for inhalation (Anoro Ellipta) pantoprazole 40 mg tablet,delayed 40 mg PO BID #60 tab s 11/13/22 06/08/23 Rx release (Protonix) acetaminophen 500 mg capsule 500 mg PO Q6H PRN pain 06/08/23 History multivitamin with min 1 tab PO DAILY 02/27/24 03/0 8/24 History no.36-iron,carbonyl-FA 16 mg iron-0.38 mg tablet (Geritol Complete) cephalexin 500 mg capsule 500 mg PO BID 7 days #14 cap s 06/08/23 Unknown Rx cephalexin 500 mg capsule 500 mg PO 3XD #21 CAPSULES 0 08/17/24 Unknown Rx phenazopyridine 200 mg tablet 200 mg PO TID 6 doses #6 tabs 08/17/24 Unknown Rx (Pyridium) Allergy/AdvReac Type Severity Reaction Status Date / Time bee venom protein (honey bee) Allergy Swelling Verified 08/17/24 13:52 fire ant Allergy Other Verified 08/17/24 13:52 tetanus and diphtheria Allergy Swelling Verified 08/17/24 13:52 toxoids codeine AdvReac Upset Verified 08/17/24 13:52 Stomach Family History Mother Heart disease Breast cancer CHF (congestive heart failure) Father Throat cancer History tobacco use concurrently, possibly chew. Brother Abnormal respirations brother with respitory disease COPD (chronic obstructive pulmonary disease) Depression Grandmother Hypertension Surgical History H/O bilateral cataract extraction History of skin surgery Social History (Updated 08/17/24 @ 14:09 by Kathia Cruz) household members: spouse housing: house Smoking Status: Heavy Smoker (>10/day) how long ago did patient quit smoking: less than a pack a day. alcohol intake: never substance use type: does not use additional social history: Pt denies vaping, denies, marijuana use, denies edibles, denies aspirin use, denies ibuprofen ROS ROS ED Review of Systems ROS Unobtainable: other Constitutional Constitutional ED: Reports lethargy; Denies chills, fever(s), sweats or weight loss Eyes Eyes: Denies blurry vision, change in vision or diplopia ENT ENT ED: Denies rhinorrhea or sore throat Cardiovascular Cardiovascular: Denies chest pain, orthopnea or racing heartbeat Respiratory/Chest Respiratory/Chest: Denies cough, dyspnea, dyspnea on exertion, orthopnea or sputum Gastrointestinal Gastrointestinal: Denies abdominal pain, diarrhea, nausea or vomiting Genitourinary Genitourinary ED: Reports other Details: Decreased urine output ; Denies dysuria, hematuria or urinary frequency Musculoskeletal Musculoskeletal: Denies arthralgias, back pain, myalgias or neck pain Integumentary Denies abscess, Abrasions or rash Neurologic Neurologic: Denies headache(s) or weakness Psychiatric Psychiatric: Denies anxiety, depression or suicidal thoughts Endocrine Endocrinology: Denies polydipsia, polyphagia or polyuria Hematologic/Lymphatic Hematologic/Lymphatic: Denies easy bleeding, easy bruising or lymphadenopathy Allergic/Immunologic Allergic/Immunologic ED: Denies mouth swelling, tongue swelling or urticaria EXAM Physical Exam Const Vital Signs: 08/17/24 13:53 08/17/24 14:02 Temperature 97 F L Temperature Source Temporal Pulse Rate 94 Respiratory Rate 20 H Blood Pressure 127/76 H Blood Pressure Mean 93 Pulse Ox 85 96 Oxygen Delivery Method Room Air Nasal Cannula Oxygen Flow Rate (L/min) 3 Positive well developed and cachectic; Negative for well nourished General Appearance ED: well developed, cachectic and NAD Nutritional Appearance: cachectic HEENT Reports TM's clear and moist mucous membranes normocephalic and atraumatic; Negative for trauma or tenderness Tympanic Membrane ED: Yes TM's clear Eyes PERRL and EOMs intact bilaterally General Eye ED: Negative for pale conjunctiva or scleral icterus Neck no lymphadenopathy, supple and no JVD General: Negative for tenderness Chest Wall inspection of chest normal and palpation of chest normal Chest: Negative for tenderness Resp normal respiratory effort and clear to auscultation bilaterally Effort and Inspection: Negative for respiratory distress or pain with movement Auscultation: Negative for rhonchi, wheezes or diminished lung sounds Cardio regular rate, regular rhythm, S1 normal heart sound, S2 normal heart sound and no murmurs Peripheral Pulses: pulses 2+ throughout GI normal to inspection, nondistended, normoactive bowel sounds, soft to palpation, non-tender, non-distended and no masses Back/Spine no CVA tenderness and no thoracic nor lumbar tenderness Extremity normal to inspection General Extremety ED: Negative for edema General Extremity: Negative for edema Neuro oriented x3, CN's II-XII intact bilaterally, no sensory deficits noted and gait normal Sensorium / Orientation: awake, alert, oriented to person, oriented to place and oriented to time Motor Exam: strength 5/5 throughout and strength abnormal Psych mental status grossly normal Skin no rashes or lesions noted and no wounds MDM MDM MDM Narrative Medical decision making narrative: Patient presents with complaint of difficulty urinating and not get much urine out. He denies abdominal pain. Clinically I do not feel a suprapubic mass. He does not look toxic. IV line established. Bladder scan performed showed 108 cc of urine. Straight cath performed to obtain urine. CBC with differential obtained showed a white of 14.4 with hemoglobin 14.6 and platelet count 252. Chemistries unremarkable. BUN 16 and creatinine 0.83. Urinalysis positive for UTI with positive nitrites as well as 500 leukocyte esterase and greater than 100 WBCs with +4 bacteria. I did send off a urine culture. Patient was given Rocephin 1 g IV. He was given a dose of Pyridium. He will be started on Keflex and Pyridium for home. Advised to follow-up with primary care physician within next 3 to 5 days. Advised to return if fever, vomiting, or condition should worsen anyway Lab Data Attestation: I reviewed the patient's lab results. Labs: Laboratory Results - last 24 hr 08/17/24 08/17/24 14:00 14:23 WBC 14.4 H RBC 4.10 L Hgb 14.6 Hct 41.6 MCV 101.5 H MCH 35.6 H MCHC 35.1 RDW Std Deviation 54.8 H RDW Coeff of Sulema 14.7 H Plt Count 252 MPV 9.9 Immature Gran % (Auto) 0.600 Neut % (Auto) 86.7 H Lymph % (Auto) 4.3 L [place] % (Auto) 8.3 Eos % (Auto) 0.0 Baso % (Auto) 0.1 Absolute Neuts (auto) 12.5 H Absolute Lymphs (auto) 0.62 L Nucleated RBC % 0 Sodium 136 Potassium 4.3 Chloride 96 L Carbon Dioxide 30.3 Anion Gap 10 BUN 16 Creatinine 0.83 Est GFR (MDRD) Non-Af 91 BUN/Creatinine Ratio 19.1 Glucose 100 H Calcium 8.9 Urine Color Yellow Urine Clarity Sl Cldy Urine pH 6.5 Ur Specific [place] 1.015 Urine Protein 100 H Urine Glucose (UA) Normal Urine Ketones Negative Urine Occult Blood 50 H Urine Nitrite Positive H Urine Bilirubin Negative Urine Urobilinogen 1 H Ur Leukocyte Esterase 500 H Urine RBC 10-25 SEEN Urine WBC >100 SEEN Ur Squamous Epith Cells 0 SEEN Urine Bacteria 4+ Urine Mucus 0 SEEN Discharge Plan Triage Chief Complaint: Complaint ED Provider: Yang España Dx/Rx/DC Orders Clinical Impression: Acute UTI Instructions: ED Urinary Tract Infections in Men Prescriptions: New cephalexin 500 mg capsule 500 mg PO 3XD Qty: 21 0RF phenazopyridine [Pyridium] 200 mg tablet 200 mg PO TID Qty: 6 0RF No Action Geritol Complete 16 mg iron- 0.38 mg tablet 1 tab PO DAILY acetaminophen 500 mg capsule 500 mg PO Q6H PRN (Reason: pain) bupropion HCl 150 mg tablet sustained-release 12 hr 150 mg PO Q12H Patient Comments: take 1 tablet by mouth twice a day gabapentin 300 mg capsule 300 mg PO QHS Patient Comments: take 1 capsule by mouth at bedtime latanoprost 0.005 % drops 1 drp ophthalmic (eye) QHS Patient Comments: INSTILL 1 DROP INTO BOTH EYES AT BEDTIME primidone 50 mg tablet 50 mg PO Q12H tamsulosin 0.4 mg capsule 0.4 mg PO Q24H Anoro Ellipta 62.5-25 mcg/actuation blister with device 1 inh INHALATION Q24H Patient Comments: inhale 1 puff by mouth once daily albuterol sulfate 90 mcg/actuation HFA aerosol inhaler 2 inh INHALATION Q4H PRN (Reason: SOB) Patient Comments: INHALE 2 PUFFS BY MOUTH AND INTO THE LUNGS EVERY 4 HOURS pantoprazole [Protonix] 40 mg tablet,delayed release (DR/EC) 40 mg PO BID Qty: 60 0RF cephalexin 500 mg capsule 500 mg PO BID 7 Days Qty: 14 0RF Primary Care Provider: Damon Mayes Chi Referrals: Damon Mayes Chi, MD [Primary Care Provider] - 3-5 Days Print Language: Icelandic Disposition Disposition: Home, Self Care
[2024-08-17 14:19] LABS: Absolute Lymphocyte Count 0.62 X10^3/uL (0.83-4.51); Absolute Neutrophil Count 12.5 X10^3/uL (2.0-7.7); Basophil# 0.02 X10^3/uL; Basophil% 0.1 % (0-1); Hematocrit 41.6 % (40-54); Hemoglobin 14.6 g/dL (13.0-16.5); Lymphocyte # 0.62 X10^3/ul (0.83-4.51); Lymphocyte % 4.3 % (19-41); Mean Corp Hgb Conc 35.1 g/dL (32-36); Mean Corpuscular Hgb 35.6 pg (27.0-32.0); Mean Corpuscular Volume 101.5 fL (80-94); Mean Platelet Vol. 9.9 fl (6.2-12.0); Monocyte# 1.19 X10^3/uL; Monocyte% 8.3 % (0-10); NRBC Flagged by Analyzer 0 % (0-5); Neutrophil # 12.45 X10^3/uL (2.7-7.7); Neutrophil % 86.7 % (47-70); Platelet Count 252 K/mm3 (150-450); RBC Distribution Width CV 14.7 % (11.6-14.6); RBC Distribution Width SD 54.8 fl (35.1-43.9); White Blood Count 14.4 K/mm3 (4.4-11.0)
[2024-08-17 14:26] LABS: Mucous, Urine 0 SEEN /hpf (<or=2+); Squamous Epithelial Cells - UA 0 SEEN /hpf (0-5)
[2024-08-17 14:28] LABS: Glucose, Dipstick Normal (Normal); Ketone-Dipstick Negative (Negative); Leukocyte Esterase-Dipstick 500 /ul (Negative); Nitrite-Dipstick Positive (Negative); Occult Blood-Urine 50 /ul (Negative); Protein-Dipstick 100 mg/dl (Negative); Specific Gravity, Urine 1.015 (1.002-1.030); Urine Bilirubin Dipstick Negative (Negative); Urine Urobilinogen 1 mg/dl (Normal); Urine pH 6.5 (5.0 - 8.0)
[2024-08-17 14:30] LABS: Color, Urine Yellow (Yellow); Urine Clarity Sl Cldy (Clear)
[2024-08-17 14:38] LABS: White Blood Cells >100 SEEN /hpf (0-5)
[2024-08-17 14:38] LABS: Anion Gap 10 (5-15); BUN 16 mg/dL (4-19); BUN/Creat Ratio 19.1 RATIO (10-20); Calcium,Total 8.9 mg/dL (7.6-11.0); Carbon Dioxide 30.3 mmol/L (21.0-32.0); Chloride 96 mmol/L (98-108); Creatinine, Serum 0.83 mg/dL (0.70-1.20); EST Glomerular Filtration Rate 91 (>60); Glucose 100 mg/dL (70-99); Potassium 4.3 mmol/L (3.3-5.1); Sodium Level 136 mmol/L (133-145)
[2024-08-17 14:39] LABS: Red Blood Cells-Urine 10-25 SEEN /hpf (0-5)
[2024-08-17 14:40] LABS: Bacteria 4+ /hpf (None Seen)
[2024-08-17] MEDS: Phenazopyridine 95 MG Tablet 190 MG PO (15:19)
[2024-08-17] MEDS: Ceftriaxone 1 GM/50 ML BAG IV (15:20)
[2024-08-17 15:51] VITALS: BP 120/78; PULSE 78; RESP 18; O2SAT 92
[2024-08-17 16:12] VITALS: BP 120/78; PULSE 78; RESP 18; TEMP 37; O2SAT 92
== END 2024-08-17 16:27 | disposition home or self-care (01) ==
PROVIDERS: Emergency Provider Emergency Medicine; PCP Family Medicine Geriatric Medicine; Visit Provider Emergency Medicine
DX: N39.0 Urinary tract infection, site not specified (principal); J44.9 Chronic obstructive pulmonary disease, unspecified; E11.9 Type 2 diabetes mellitus without complications; F17.210 Nicotine dependence, cigarettes, uncomplicated; G47.33 Obstructive sleep apnea (adult) (pediatric); Z99.89 Dependence on other enabling machines and devices
CPT/HCPCS: 80048; 81001; 85025; 87077; 87086; 87088; 87186; 96365; 99282; A4216

== ENCOUNTER 2024-08-18 11:07 | Inpatient (IN) | payer MEDICARE, OTHER, SELFPAY ==
[2024-08-18] VITALS (10 sets, daily range): BP systolic 103–124; BP diastolic 53–79; PULSE 63–76; RESP 12–22; TEMP 36.6–37; O2SAT 90–98; BMI 17.0; BMI 16.3
--- NOTE | 2024-08-18 11:35 | EX.ED.DYSGE1 ---
HPI History of Present Illness Chief Complaint: Complaint Informant: patient, family and EMS Narrative Narrative: 74-year-old male arriving via EMS with a chief complaint of weakness and UTI. Patient was seen yesterday diagnosed with UTI given a dose of Rocephin and prescribed antibiotics. He states that during the night he was too weak to get out of bed and had multiple episodes of incontinence. He states that family came to help him get up to a chair but he was unable to change his oxygen tanks and was hypoxic by the time EMS arrived. He notes no fevers or chills. Family notes that his is in a wheelchair due to brain cancer. They note that they are trying to get him into assisted living but it is at least several more weeks out. They note that he is so weak that he really is having a difficult time caring for himself today. Patient echo is that sentiment. [facility] Medical History Broken shoulder H/O ulcerative colitis H/O pneumococcal pneumonia Ischemic colitis Diabetes Smoker BiPAP (biphasic positive airway pressure) dependence Asthma GI bleed Diabetes mellitus, type 2 Essential tremor Anxiety and depression Tobacco use MIGUEL A on CPAP Kidney stones COPD (chronic obstructive pulmonary disease) Home Medications ?Medication ?Instructions ?Recorded ?Last Taken ?Type albuterol sulfate 90 mcg/actuation 2 inh inhalation Q4H PRN SOB 11/08/22 08/17/24 History aerosol inhaler bupropion HCl 150 mg tablet,12 hr 150 mg PO Q12H 11/08/22 08/17/24 History sustained-release latanoprost 0.005 % eye drops 1 drp ophthalmic (eye) QHS 11/08/22 08/17/24 History primidone 50 mg tablet 50 mg PO Q12H 11/08/22 08/17/24 History tamsulosin 0.4 mg capsule 0.4 mg PO Q24H 11/08/22 08/17/24 History pantoprazole 40 mg tablet,delayed 40 mg PO BID #60 tabs 11/13/22 08/17/24 Rx release (Protonix) budesonide 160 mcg-glycopyr 9 2 inh inhalation BID PRN 08/18/24 08/17/24 History mcg-formot 4.8 mcg/actuation HFA inhaler (Breztri Aerosphere) citalopram 40 mg tablet 40 mg PO DAILY 08/18/24 08/17/24 History dorzolamide 2 % eye drops 1 drp ophthalmic (eye) TID 08/18/24 08/17/24 History mirtazapine 7.5 mg tablet 7.5 mg PO QHS 08/18/24 08/17/24 History ropinirole 1 mg tablet 1 mg PO QHS 08/18/24 08/17/24 History Allergy/AdvReac Type Severity Reaction Status Date / Time bee venom protein (honey bee) Allergy Swelling Verified 08/18/24 11:08 fire ant Allergy Other Verified 08/18/24 11:08 tetanus and diphtheria Allergy Swelling Verified 08/18/24 11:08 toxoids codeine AdvReac Upset Verified 08/18/24 11:08 Stomach Family History Mother Heart disease Breast cancer CHF (congestive heart failure) Father Throat cancer History tobacco use concurrently, possibly chew. Brother Abnormal respirations brother with respitory disease COPD (chronic obstructive pulmonary disease) Depression Grandmother Hypertension Surgical History H/O bilateral cataract extraction History of skin surgery Social History household members: spouse housing: house Smoking Status: Heavy Smoker (>10/day) how long ago did patient quit smoking: less than a pack a day. alcohol intake: never substance use type: does not use additional social history: Pt denies vaping, denies, marijuana use, denies edibles, denies aspirin use, denies ibuprofen ROS ROS ED ROS Narrative Generalized weakness Constitutional Constitutional ED: Denies chills, fever(s) or weight loss Eyes Eyes: Denies change in vision or diplopia ENT ENT ED: Denies ear pain, rhinorrhea or sore throat Cardiovascular Cardiovascular: Denies chest pain, orthopnea, palpitations or racing heartbeat Respiratory/Chest Respiratory/Chest: Denies cough, dyspnea or orthopnea Gastrointestinal Gastrointestinal: Denies abdominal pain, diarrhea, nausea or vomiting Genitourinary Genitourinary ED: Reports other Details: Incontinence ; Denies dysuria, hematuria or urinary frequency Musculoskeletal Musculoskeletal: Denies arthralgias or myalgias Integumentary Denies abscess or rash Neurologic Neurologic: Denies headache(s) or weakness Psychiatric Psychiatric: Denies anxiety, depression, suicidal ideation or suicidal thoughts Endocrine Endocrinology: Denies polydipsia, polyphagia or polyuria Allergic/Immunologic Allergic/Immunologic ED: Denies mouth swelling, tongue swelling or urticaria EXAM Physical Exam Narrative Exam Narrative: Frail cachectic elderly male laying in the bed. Const Vital Signs: 08/18/24 11:09 08/18/24 12:11 08/18/24 13:00 Temperature 98.6 F 98.6 F 98.6 F Temperature Source Oral Oral Oral Pulse Rate 76 68 69 Respiratory Rate 18 18 22 H Blood Pressure 108/59 L 103/65 118/79 Blood Pressure Mean 75 77 92 Pulse Ox 94 94 94 Oxygen Delivery Method Nasal Cannula Nasal Cannula Nasal Cannula Oxygen Flow Rate (L/min) 3 3 3 08/18/24 13:20 Temperature 98.6 F Temperature Source Pulse Rate 68 Respiratory Rate 12 Blood Pressure 115/60 Blood Pressure Mean 78 Pulse Ox 95 Oxygen Delivery Method Oxygen Flow Rate (L/min) Positive well nourished, well developed and cachectic General Appearance ED: well developed, cachectic and NAD Nutritional Appearance: cachectic HEENT Reports normocephalic, head/scalp atraumatic and moist mucous membranes Eyes PERRL and EOMs intact bilaterally Neck no lymphadenopathy, supple and no JVD Resp normal respiratory effort and clear to auscultation bilaterally Cardio regular rate, regular rhythm and no murmurs GI normal to inspection, nondistended, normoactive bowel sounds and non-tender Palpation: soft Back/Spine no CVA tenderness and normal ROM Extremity normal to inspection General Extremety ED: Negative for edema General Extremity: Negative for edema Neuro oriented x3 and CN's II-XII intact bilaterally Sensorium / Orientation: alert Motor Exam: strength 5/5 throughout Psych mental status grossly normal Mood & Affect: Negative for depressed or tearful Skin no rashes or lesions noted and no wounds MDM MDM MDM Narrative Medical decision making narrative: Differential diagnosis includes but not limited to sepsis UTI COPD exacerbation chronic hypoxemic respiratory failure acute kidney injury dehydration electrolyte abnormalities Basic blood work was repeated and patient received a dose of Rocephin. I see in his urine culture he is growing gram-negative rods no history of ESBL. White blood cell count 20.2 hemoglobin 13.9 plate count of 224. Sodium 131 creatinine 0.64 potassium 4.9 glucose 112 normal LFTs lactic acid is less than 1. Given his UTI and weakness and inability care for self plan is going to be to admission into hospital History & Record Review Discussion w/independent historian: EMS personnel, Patient and Family Additional record(s) reviewed:: Prior ED visit and Prior labs Lab Data Attestation: I reviewed the patient's lab results. Labs: Laboratory Results - last 24 hr 08/18/24 08/18/24 08/18/24 11:48 11:48 12:57 WBC Cancelled 20.2 H Corrected WBC Cancelled RBC Cancelled 3.92 L Hgb Cancelled 13.9 Hct Cancelled 39.3 L MCV Cancelled 100.3 H MCH Cancelled 35.5 H MCHC Cancelled 35.4 RDW Std Deviation Cancelled 53.9 H RDW Coeff of Sulema Cancelled 14.6 Plt Count Cancelled 224 MPV Cancelled 10.1 Immature Gran % (Auto) Cancelled 1.800 H Neut % (Auto) Cancelled 89.0 H Lymph % (Auto) Cancelled 2.2 L [place] % (Auto) Cancelled 6.9 Eos % (Auto) Cancelled 0.0 Baso % (Auto) Cancelled 0.1 Absolute Neuts (auto) Cancelled 17.9 H Absolute Lymphs (auto) Cancelled 0.45 L Total Counted Cancelled Neutrophils % (Manual) Cancelled Band Neutrophils % Cancelled Lymphocytes % (Manual) Cancelled Monocytes % (Manual) Cancelled Eosinophils % (Manual) Cancelled Basophils % (Manual) Cancelled Metamyelocytes % Cancelled Myelocytes % Cancelled Promyelocytes % Cancelled Blast Cells % Cancelled Plasma Cell % (Manual) Cancelled Other Cells % Cancelled Nucleated RBC % Cancelled 0 Nucleated RBCs/100 WBC Cancelled Differential Comment Cancelled Diff Path Review Cancelled Hypersegmented Neuts Cancelled Atypical Lymphocytes Cancelled Reactive Lymphocytes Cancelled Smudge Cells Cancelled Toxic Granulation Cancelled Toxic Vacuolation Cancelled Dohle Bodies Cancelled Suad Rods Cancelled Platelet Estimate Cancelled Plt Morphology Comment Cancelled RBC Morphology Cancelled Cancelled Polychromasia Cancelled Hypochromasia Cancelled Basophilic Stippling Cancelled Anisocytosis Cancelled Microcytosis Cancelled Macrocytosis Cancelled Spherocytes Cancelled Sickle Cells Cancelled Target Cells Cancelled Tear Drop Cells Cancelled Ovalocytes Cancelled Stomatocytes Cancelled [place] Bodies Cancelled Ino Cells Cancelled Bite Cells Cancelled Crenated Cell Cancelled Acanthocytes (Spur) Cancelled Rouleaux Cancelled Schistocytes Cancelled PT 13.9 INR 1.1 APTT 35.0 Sodium 131 L Potassium 4.9 Chloride 96 L Carbon Dioxide 26.9 Anion Gap 8 BUN 16 Creatinine 0.64 L Estim Creat Clear Calc 58.11 Est GFR (MDRD) Non-Af 98 BUN/Creatinine Ratio 24.4 H Glucose 112 H Lactic Acid < 1.0 Calcium 8.4 Total Bilirubin 0.35 AST 25 ALT 15 Alkaline Phosphatase 92 Total Protein 6.2 Albumin 2.7 L Globulin 3.5 Albumin/Globulin Ratio 0.8 L Management Discussion w/another healthcare provider: Hospitalist (Dr Araujo) and soil sort worker/Case management Discharge Plan Dx/Rx/DC Orders Clinical Impression: Acute UTI, Weakness, Acute hyponatremia Disposition Disposition: Acute Care Hospital [facility]
[2024-08-18 12:06] LABS: International Normalized Ratio 1.1; Prothrombin Time (Protime)PT. 13.9 SECONDS (11.7-14.9)
[2024-08-18] MEDS: Ceftriaxone 1 GM/50 ML BAG IV (12:19)
[2024-08-18 12:36] LABS: Lactic Acid < 1.0 mmol/L (0.0-2.0)
[2024-08-18 12:37] LABS: ALB/GLOB Ratio 0.8 RATIO (0.9-2.4); AST(SGOT) 25 U/L (<=37); Alanine Aminotransfer ALT/SGPT 15 U/L (<=46); Albumin, Serum 2.7 g/dL (3.4-4.8); Alkaline Phosphatase 92 U/L (40-129); Anion Gap 8 (5-15); BUN 16 mg/dL (4-19); BUN/Creat Ratio 24.4 RATIO (10-20); Calcium,Total 8.4 mg/dL (7.6-11.0); Carbon Dioxide 26.9 mmol/L (21.0-32.0); Chloride 96 mmol/L (98-108); Creatinine, Serum 0.64 mg/dL (0.70-1.20); EST Glomerular Filtration Rate 98 (>60); Estimated Creatinine Clearance 58.11 ml/min (50-250); Globulin 3.5 g/dL (2.2-4.2); Glucose 112 mg/dL (70-99); Potassium 4.9 mmol/L (3.3-5.1); Protein, Total 6.2 g/dL (5.9-8.4); Sodium Level 131 mmol/L (133-145); Total Bilirubin 0.35 mg/dL (0.00-1.30)
[2024-08-18 13:08] LABS: Absolute Lymphocyte Count 0.45 X10^3/uL (0.83-4.51); Absolute Neutrophil Count 17.9 X10^3/uL (2.0-7.7); Basophil# 0.02 X10^3/uL; Basophil% 0.1 % (0-1); Hematocrit 39.3 % (40-54); Hemoglobin 13.9 g/dL (13.0-16.5); Lymphocyte # 0.45 X10^3/ul (0.83-4.51); Lymphocyte % 2.2 % (19-41); Mean Corp Hgb Conc 35.4 g/dL (32-36); Mean Corpuscular Hgb 35.5 pg (27.0-32.0); Mean Corpuscular Volume 100.3 fL (80-94); Mean Platelet Vol. 10.1 fl (6.2-12.0); Monocyte# 1.39 X10^3/uL; Monocyte% 6.9 % (0-10); NRBC Flagged by Analyzer 0 % (0-5); Neutrophil # 17.94 X10^3/uL (2.7-7.7); POSITIVE DIFFERENTIAL YES; Platelet Count 224 K/mm3 (150-450); RBC Distribution Width CV 14.6 % (11.6-14.6); RBC Distribution Width SD 53.9 fl (35.1-43.9); Red Blood Count 3.92 M/mm3 (4.6-6.2); White Blood Count 20.2 K/mm3 (4.4-11.0)
--- NOTE | 2024-08-18 14:13 | CASEMGMT ---
Care Management Face to Face with patient for initial transition planning/care coordination assessment in the ED.? This leader writer introduced self and role at [facility]. Patient alert and oriented. Patient willing to participate in assessment and is able to answer all questions appropriately.? Care providers, pharmacy, and demographics verified. Admitting Diagnosis: ?Acute UTI Other diagnosis history: ?COPD, Diabetes, asthma PCP: ?[facility] Specialists: none Preferred Pharmacy: [facility] Insurance: Medicare Prescription Benefit: yes Living Will/HPOA: completed both LW and HPOA LNOK: ? Living Arrangements: ?Lives with in one story home.? Was independent with ADLs until last evening.? Both patient and are on waiting list for [facility] and plan to admit within next couple weeks.? Transportation: ?patient drives short distances DME: ?has home O2 from [facility], patient states he is on 2L PRN HHC: ?[facility] HH , discharged 4/4 from services SNF/Rehab: ?none Community Resources: none Behavioral Health History: anxiety and depression Patient goals: Discharge plans uncertain Disposition Plan: admission to acute; RN CM/SW to follow for discharge planning needs that may arise. Verenice Cho, BUSINESS ANALYTICS MANAGER, WAREDRESSER
--- NOTE | 2024-08-18 14:23 | HP.PCM.HOS_ITS ---
HPI - General General Date of Admission: 08/18/24 Date of Service: 08/18/24 Chief Complaint: Burning on urination, generalized weakness HPI Narrative NIKOLAI MTZ, is a 74 M with history of COPD on 2.5 L home O2, tobacco use, glaucoma, GERD, restless leg syndrome, BPH, depression who presented to [facility] ED 08/18/2024 for generalized weakness and burning on urination. He was seen yesterday in the emergency department and found to have a UTI, he was given a dose of Rocephin and discharged home on Keflex however overnight he had urinary incontinence and was too weak to get out of bed so patient was brought back to the ER. In the ER patient afebrile and vitally stable, labs revealed an increased white blood cell count to 20.2 with a normal lactic acid. Hospitalist contacted for admission due to patient's generalized weakness secondary to UTI unable to be treated at home. Patient evaluated family member at bedside, patient reports since yesterday he has had worsening burning on urination and generalized weakness as well as had an episode of urinary incontinence, no abdominal pain or nausea, no fevers at home. Respiratory status at baseline. [facility] Medical History Broken shoulder H/O ulcerative colitis H/O pneumococcal pneumonia Ischemic colitis Diabetes Smoker BiPAP (biphasic positive airway pressure) dependence Asthma GI bleed Diabetes mellitus, type 2 Essential tremor Anxiety and depression Tobacco use MIGUEL A on CPAP Kidney stones COPD (chronic obstructive pulmonary disease) Home Medications ?Medication ?Instructions ?Recorded ?Last Taken ?Type albuterol sulfate 90 mcg/actuation 2 inh inhalation Q4 H PRN SOB 11/08/22 08/17/24 History aerosol inhaler bupropion HCl 150 mg tablet,12 hr 150 mg PO Q12H 11/0808/17/24 History sustained-release latanoprost 0.005 % eye drops 1 drp ophthalmic (eye) Q HS 11/08/22 08/17/24 History primidone 50 mg tablet 50 mg PO Q12H 11/08/2208/17 History tamsulosin 0.4 mg capsule 0.4 mg PO Q24H 11/08/2207/31 History pantoprazole 40 mg tablet,delayed 40 mg PO BID #60 tab s 11/13/22 08/17/24 Rx release (Protonix) budesonide 160 mcg-glycopyr 9 2 inh inhalation BID PRN 08/18/24 08/17/24 History mcg-formot 4.8 mcg/actuation HFA inhaler (Breztri Aerosphere) citalopram 40 mg tablet 40 mg PO DAILY 08/18/2407/31 History dorzolamide 2 % eye drops 1 drp ophthalmic (eye) TID 0 08/18/24 08/17/24 History mirtazapine 7.5 mg tablet 7.5 mg PO QHS 08/18/2408/17 History ropinirole 1 mg tablet 1 mg PO QHS 08/18/24 5 History Allergy/AdvReac Type Severity Reaction Status Date / Time bee venom protein (honey bee) Allergy Swelling Verified 08/18/24 11:08 fire ant Allergy Other Verified 08/18/24 11:08 tetanus and diphtheria Allergy Swelling Verified 08/18/24 11:08 toxoids codeine AdvReac Upset Verified 08/18/24 11:08 Stomach Family History Mother Heart disease Breast cancer CHF (congestive heart failure) Father Throat cancer History tobacco use concurrently, possibly chew. Brother Abnormal respirations brother with respitory disease COPD (chronic obstructive pulmonary disease) Depression Grandmother Hypertension Surgical History H/O bilateral cataract extraction History of skin surgery Social History household members: spouse housing: house Smoking Status: Heavy Smoker (>10/day) how long ago did patient quit smoking: less than a pack a day. alcohol intake: never substance use type: does not use additional social history: Pt denies vaping, denies, marijuana use, denies edibles, denies aspirin use, denies ibuprofen ROS ROS Narrative General: Denies fever/chills HENT: Denies headache, denies stuffy nose, denies sore throat EYES: Denies changes in vision Resp: Denies cough, chronic shortness of breath Cardiac: Denies chest pain GI: Denies abdominal pain, denies changes in bowel, denies nausea/vomiting : Burning in urination Extremity: Denies swelling MSK generalized weakness Neuro: Denies any numbness/tingling Heme: Denies any bleeding or bruising Skin: Denies rashes Psychiatric: No complaints voiced Vital Signs Vital Signs Vital Signs: 08/18/24 11:09 08/18/24 12:11 08/18/24 13:00 Temperature 98.6 F 98.6 F 98.6 F Temperature Source Oral Oral Oral Pulse Rate 76 68 69 Respiratory Rate 18 18 22 H Blood Pressure 108/59 L 103/65 118/79 Blood Pressure Mean 75 77 92 Pulse Ox 94 94 94 Oxygen Delivery Method Nasal Cannula Nasal Cannula Nasal Cannula Oxygen Flow Rate (L/min) 3 3 3 08/18/24 13:20 Temperature 98.6 F Temperature Source Pulse Rate 68 Respiratory Rate 12 Blood Pressure 115/60 Blood Pressure Mean 78 Pulse Ox 95 Oxygen Delivery Method Oxygen Flow Rate (L/min) Weight Weight: 52.3 kg Body Mass Index (BMI) 17.0 Physical Exam Narrative General: Alert, oriented, no apparent distress HEENT: Atraumatic, normocephalic Eyes: Anicteric, normal conjunctiva, extraocular movements grossly intact Neck: Supple Respiratory: Somewhat diminished bilaterally, normal respiratory effort Cardiovascular: Regular rate and rhythm GI: Soft, nontender, nondistended Extremities: No edema Musculoskeletal: Moving all extremities Neuro: No overt focal neurological deficits Skin: No rashes appreciated Psych: Cooperative Results Lab / Micro Data 08/18/24 12:57 08/18/24 11:48 Labs: Laboratory Results - last 24 hr 08/18/24 11:48: WBC Cancelled, Corrected WBC Cancelled, RBC Cancelled, Hgb Cancelled, Hct Cancelled, MCV Cancelled, MCH Cancelled, MCHC Cancelled, RDW Std Deviation Cancelled, RDW Coeff of Sulema Cancelled, Plt Count Cancelled, MPV Cancelled, Immature Gran % (Auto) Cancelled, Neut % (Auto) Cancelled, Lymph % (Auto) Cancelled, [place] % (Auto) Cancelled, Eos % (Auto) Cancelled, Baso % (Auto) Cancelled, Absolute Neuts (auto) Cancelled, Absolute Lymphs (auto) Cancelled, Total Counted Cancelled, Neutrophils % (Manual) Cancelled, Band Neutrophils % Cancelled, Lymphocytes % (Manual) Cancelled, Monocytes % (Manual) Cancelled, Eosinophils % (Manual) Cancelled, Basophils % (Manual) Cancelled, Metamyelocytes % Cancelled, Myelocytes % Cancelled, Promyelocytes % Cancelled, Blast Cells % Cancelled, Plasma Cell % (Manual) Cancelled, Other Cells % Cancelled, Nucleated RBC % Cancelled, Nucleated RBCs/100 WBC Cancelled, Differential Comment Cancelled, Diff Path Review Cancelled, Hypersegmented Neuts Cancelled, Atypical Lymphocytes Cancelled, Reactive Lymphocytes Cancelled, Smudge Cells Cancelled, Toxic Granulation Cancelled, Toxic Vacuolation Cancelled, Dohle Bodies Cancelled, Suad Rods Cancelled, Platelet Estimate Cancelled, Plt Morphology Comment Cancelled, RBC Morphology Cancelled 08/18/24 11:48: RBC Morphology Cancelled, Polychromasia Cancelled, Hypochromasia Cancelled, Basophilic Stippling Cancelled, Anisocytosis Cancelled, Microcytosis Cancelled, Macrocytosis Cancelled, Spherocytes Cancelled, Sickle Cells Cancelled, Target Cells Cancelled, Tear Drop Cells Cancelled, Ovalocytes Cancelled, Stomatocytes Cancelled, [place] Bodies Cancelled, [place] Cells Cancelled, Bite Cells Cancelled, Crenated Cell Cancelled, Acanthocytes (Spur) Cancelled, Rouleaux Cancelled, Schistocytes Cancelled, PT 13.9, INR 1.1, APTT 35.0, Sodium 131 L, Potassium 4.9, Chloride 96 L, Carbon Dioxide 26.9, Anion Gap 8, BUN 16, Creatinine 0.64 L, Estim Creat Clear Calc 58.11, Est GFR (MDRD) Non- Af 98, BUN/Creatinine Ratio 24.4 H, Glucose 112 H, Lactic Acid < 1.0, Calcium 8.4, Total Bilirubin 0.35, AST 25, ALT 15, Alkaline Phosphatase 92, Total Protein 6.2, Albumin 2.7 L, Globulin 3.5, Albumin/Globulin Ratio 0.8 L 08/18/24 12:57: WBC 20.2 H, RBC 3.92 L, Hgb 13.9, Hct 39.3 L, MCV 100.3 H, MCH 35.5 H, MCHC 35.4, RDW Std Deviation 53.9 H, RDW Coeff of Sulema 14.6, Plt Count 224, MPV 10.1, Immature Gran % (Auto) 1.800 H, Neut % (Auto) 89.0 H, Lymph % (Auto) 2.2 L, [place] % (Auto) 6.9, Eos % (Auto) 0.0, Baso % (Auto) 0.1, Absolute Neuts (auto) 17.9 H, Absolute Lymphs (auto) 0.45 L, Nucleated RBC % 0 Assessment & Plan Assessment/Plan (1) Acute UTI: PLAN: Plan #Acute UTI - Urine culture growing gram-negative rods - Continue patient on Rocephin - Was previously grown Proteus which is sensitive to this - Await further culture and sensitivity data # Generalized weakness - Suspect largely due to #1 - Treat underlying process - Case management consult - PT/OT #Hx COPD -Continue home inhalers -Incentive spirometer # History of glaucoma - Continue home eyedrops, if any of them are not available on formulary family can bring them in from home #Tobacco use -Advise cessation -Nicotine replacement available if desired #Chronic BPH with obstruction -Continue home medications # Restless leg syndrome -continue patient's home medication regimen #Depression/anxiety -Continue home medications #GERD -Continue PPI #DVT ppx: Lovenox subcu Fatuma Araujo MD Charges/Coding Visit Charges Inpatient E&M: 41922 Init Hosp L2
[2024-08-18] MEDS: Pramipexole Di-HCl 0.125 MG Tablet PO (17:20)
[2024-08-18] MEDS: 0.9% Normal Saline (1000mL) 1,000 ML 75 ML IV (17:21)
[2024-08-18] MEDS: Ipratropium/Albuterol Sulfate 3 ML AMPUL.NEB INHALATION (20:00)
[2024-08-18] MEDS: Budesonide Respules 0.5 MG/2 ML AMPUL.NEB. INHALATION (20:00)
[2024-08-18] MEDS: Mirtazapine 15 MG Tablet 7.5 MG PO (21:46)
[2024-08-18] MEDS: Pantoprazole Sodium 40 MG Tablet PO (21:47)
[2024-08-18] MEDS: Pramipexole Di-HCl 0.5 MG Tablet PO (21:48)
[2024-08-18] MEDS: Latanoprost 0.005% 1 Bottle 1 DRP OPHTHALMIC (21:49)
[2024-08-18] MEDS: Tamsulosin HCl 0.4 MG Capsule PO (21:49)
[2024-08-18] MEDS: Primidone 50 MG Tablet PO (21:49)
[2024-08-18] MEDS: Acetaminophen 325 MG Tablet 650 MG PO (22:13)
[2024-08-19] VITALS (8 sets, daily range): BP systolic 95–126; BP diastolic 57–72; PULSE 68–79; RESP 15–20; TEMP 36.6–37.1; O2SAT 88–96
[2024-08-19 04:46] LABS: Absolute Neutrophil Count 17.7 X10^3/uL (2.0-7.7); Basophil# 0.04 X10^3/uL; Basophil% 0.2 % (0-1); Eosinophil# 0.01 X10^3/uL; Eosinophils% 0.1 % (0-5); Hemoglobin 11.8 g/dL (13.0-16.5); Mean Corp Hgb Conc 34.7 g/dL (32-36); Mean Corpuscular Hgb 34.8 pg (27.0-32.0); Mean Corpuscular Volume 100.3 fL (80-94); Mean Platelet Vol. 9.8 fl (6.2-12.0); Monocyte# 1.15 X10^3/uL; Monocyte% 5.8 % (0-10); NRBC Flagged by Analyzer 0 % (0-5); Neutrophil % 89.8 % (47-70); POSITIVE DIFFERENTIAL YES; Platelet Count 210 K/mm3 (150-450); RBC Distribution Width CV 14.3 % (11.6-14.6); RBC Distribution Width SD 52.2 fl (35.1-43.9); Red Blood Count 3.39 M/mm3 (4.6-6.2); White Blood Count 19.7 K/mm3 (4.4-11.0)
[2024-08-19 05:12] LABS: Anion Gap 7 (5-15); BUN 18 mg/dL (4-19); BUN/Creat Ratio 29.4 RATIO (10-20); Carbon Dioxide 27.9 mmol/L (21.0-32.0); Chloride 99 mmol/L (98-108); Creatinine, Serum 0.62 mg/dL (0.70-1.20); EST Glomerular Filtration Rate 99 (>60); Estimated Creatinine Clearance 55.78 ml/min (50-250); Glucose 111 mg/dL (70-99); Potassium 4.1 mmol/L (3.3-5.1); Sodium Level 134 mmol/L (133-145)
[2024-08-19] MEDS: Dorzolamide 2% 10ml Bottle 1 DRP OPHTHALMIC ×3 (05:36→23:00)
--- NOTE | 2024-08-19 07:12 | CT_ITS ---
PROCEDURE: CTA CHEST W/WO CONTRAST 08/19/2024 REASON FOR EXAM: ACUTE HYPOXIA TECHNIQUE: CTA axial imaging of the chest with intravenous contrast. Multiplanar and multisequence images were obtained. PATIENT PREPARATION: Per protocol CONTRAST: 100 cc Isovue 370 One or more dose reduction techniques were used (e.g., Automated exposure control, adjustment of the mA and/or kV according to patient size, use of iterative reconstruction technique). RADIATION DOSE SUMMARY: DLP: 184.44 mGycm COMPARISON: September 18, 2023 FINDINGS: Hardware: None Lymph nodes: There is no visible pathologic adenopathy by size criteria. Heart: Atherosclerotic calcifications are noted. RV/LV Diameter Ratio: 1.0 Thoracic Aorta: Atherosclerotic calcifications are noted. Pulmonary Vessels: There is no visible pulmonary embolus. Pulmonary artery Hounsfield units = 326. Lungs and Airways: Lung volumes are increased. Emphysema is present, most severe in the upper lung perez. There is segmental consolidation in the medial left lung base. Pleura: There is a 1.5 cm pleural effusion on the right and left. Upper Abdomen: No acute findings Bones: An old healed fracture of the proximal left humerus is noted. CT/CTA Chest W/WO Contrast IMPRESSION: There is no visible pulmonary embolus. Lung volumes are increased. Emphysema is present, most severe in the upper lung perez. There is segmental consolidation in the medial left lung base, likely acute pne umonia. Follow-up is recommended. There is a 1.5 cm pleural effusion on the right and left. Reading Location: [facility]
--- NOTE | 2024-08-19 07:14 | PN.HOSP_ITS ---
Reason for Visit Reason for Visit: Generalized weakness Subjective Subjective Patient does seem to be somewhat repetitive in conversation may have some memory impairment. We did discuss that he does have a urinary tract infection being treated with antibiotics but with his new hypoxia compared to his baseline oxygen requirement his CTA of the chest showed a pneumonia. Patient is not very helpful in giving a history. He does have an elevated white count. Patient did indicate that he and his family are considering moving to assisted living versus skilled facility. Objective Data Objective Data Vital Signs: Vital Signs Temp Pulse Resp BP Pulse Ox O2 Del Method O2 Flow Rate 97.8 F 68 18 95/57 L 96 High Flow 4 08/19/24 02:53 08/19/24 02:53 08/19/24 02:53 08/19/24 02:53 08/19/24 02:53 08/19/24 03:00 08/19/24 03:00 Oxygen Flow Rate (L/min) 4 Oxygen Delivery Method High Flow Weight: 50.2 kg Body Mass Index (BMI) 16.3 Intake & Output: Intake and Output for Last 24 Hours 08/17/24 08/18/24 08/19/24 23:59 23:59 23:59 Intake Total 850 / 850 Output Total 100 / 100 Balance 750 / 750 Lab / Micro Data 08/19/24 04:23 08/19/24 04:23 Labs: Laboratory Results - last 24 hr 08/18/24 11:48: WBC Cancelled, Corrected WBC Cancelled, RBC Cancelled, Hgb Cancelled, Hct Cancelled, MCV Cancelled, MCH Cancelled, MCHC Cancelled, RDW Std Deviation Cancelled, RDW Coeff of Sulema Cancelled, Plt Count Cancelled, MPV Cancelled, Immature Gran % (Auto) Cancelled, Neut % (Auto) Cancelled, Lymph % (Auto) Cancelled, [place] % (Auto) Cancelled, Eos % (Auto) Cancelled, Baso % (Auto) Cancelled, Absolute Neuts (auto) Cancelled, Absolute Lymphs (auto) Cancelled, Total Counted Cancelled, Neutrophils % (Manual) Cancelled, Band Neutrophils % Cancelled, Lymphocytes % (Manual) Cancelled, Monocytes % (Manual) Cancelled, Eosinophils % (Manual) Cancelled, Basophils % (Manual) Cancelled, Metamyelocytes % Cancelled, Myelocytes % Cancelled, Promyelocytes % Cancelled, Blast Cells % Cancelled, Plasma Cell % (Manual) Cancelled, Other Cells % Cancelled, Nucleated RBC % Cancelled, Nucleated RBCs/100 WBC Cancelled, Differential Comment Cancelled, Diff Path Review Cancelled, Hypersegmented Neuts Cancelled, Atypical Lymphocytes Cancelled, Reactive Lymphocytes Cancelled, Smudge Cells Cancelled, Toxic Granulation Cancelled, Toxic Vacuolation Cancelled, Dohle Bodies Cancelled, Suad Rods Cancelled, Platelet Estimate Cancelled, Plt Morphology Comment Cancelled, RBC Morphology Cancelled 08/18/24 11:48: RBC Morphology Cancelled, Polychromasia Cancelled, Hypochromasia Cancelled, Basophilic Stippling Cancelled, Anisocytosis Cancelled, Microcytosis Cancelled, Macrocytosis Cancelled, Spherocytes Cancelled, Sickle Cells Cancelled, Target Cells Cancelled, Tear Drop Cells Cancelled, Ovalocytes Cancelled, Stomatocytes Cancelled, [place] Bodies Cancelled, [place] Cells Cancelled, Bite Cells Cancelled, Crenated Cell Cancelled, Acanthocytes (Spur) Cancelled, Rouleaux Cancelled, Schistocytes Cancelled, PT 13.9, INR 1.1, APTT 35.0, Sodium 131 L, Potassium 4.9, Chloride 96 L, Carbon Dioxide 26.9, Anion Gap 8, BUN 16, Creatinine 0.64 L, Estim Creat Clear Calc 58.11, Est GFR (MDRD) Non- Af 98, BUN/Creatinine Ratio 24.4 H, Glucose 112 H, Lactic Acid < 1.0, Calcium 8.4, Total Bilirubin 0.35, AST 25, ALT 15, Alkaline Phosphatase 92, Total Protein 6.2, Albumin 2.7 L, Globulin 3.5, Albumin/Globulin Ratio 0.8 L 08/18/24 12:57: WBC 20.2 H, RBC 3.92 L, Hgb 13.9, Hct 39.3 L, MCV 100.3 H, MCH 35.5 H, MCHC 35.4, RDW Std Deviation 53.9 H, RDW Coeff of Sulema 14.6, Plt Count 224, MPV 10.1, Immature Gran % (Auto) 1.800 H, Neut % (Auto) 89.0 H, Lymph % (Auto) 2.2 L, [place] % (Auto) 6.9, Eos % (Auto) 0.0, Baso % (Auto) 0.1, Absolute Neuts (auto) 17.9 H, Absolute Lymphs (auto) 0.45 L, Nucleated RBC % 0 08/19/24 04:23: WBC 19.7 H, RBC 3.39 L, Hgb 11.8 L, Hct 34.0 L, MCV 100.3 H, MCH 34.8 H, MCHC 34.7, RDW Std Deviation 52.2 H, RDW Coeff of Sulema 14.3, Plt Count 210, MPV 9.8, Immature Gran % (Auto) 1.100 H, Neut % (Auto) 89.8 H, Lymph % (Auto) 3.0 L, [place] % (Auto) 5.8, Eos % (Auto) 0.1, Baso % (Auto) 0.2, Absolute Neuts (auto) 17.7 H, Absolute Lymphs (auto) 0.60 L, Nucleated RBC % 0, Sodium 134, Potassium 4.1, Chloride 99, Carbon Dioxide 27.9, Anion Gap 7, BUN 18, C reatinine 0.62 L, Estim Creat Clear Calc 55.78, Est GFR (MDRD) Non-Af 99, B UN/Creatinine Ratio 29.4 H, Glucose 111 H, Calcium 8.0 Physical Exam Const alert and no apparent distress; Negative for average body habitus, healthy appearing or well nourished Constitutional Narrative: Cachectic appearing, older, white male, sitting up in bed, appears older than stated age, is quite frail for his age patient is oriented to self and place but not time HEENT head/scalp atraumatic and moist oral mucous membranes HEENT Narrative: Dentures are in place, Mallampati is 1, no thrush, significant temporal wasting Head and Scalp: normocephalic Neck supple Neck Narrative: Trachea midline Resp normal respiratory effort, no retractions, no use of accessory muscles and clear to auscultation bilaterally Resp Narrative: Markedly diminished diffusely but no adventitious sounds noted Auscultation: Negative for crackles, rhonchi or wheezes Cardio regular rate, regular rhythm, S1 normal heart sound, S2 normal heart sound, no murmurs, no rub, no gallops and no clicks GI normal to inspection, nondistended, normoactive bowel sounds, soft to palpation and non-tender GI Narrative: Scaphoid abdomen Extremity no clubbing, cyanosis or edema Extremity Narrative: Markedly decreased lean muscle mass Neuro moves all extremities and no focal motor deficits Neuro Narrative: Severe generalized weakness Sensorium / Orientation: awake, alert, oriented to person and oriented to place; Negative for oriented to time Assessment & Plan Assessment/Plan (1) E. coli UTI: (2) Leukocytosis: (3) Acute hyponatremia: (4) Generalized weakness: PLAN: Plan E. coli UTI-complicated - Urine culture from the 18 shows E. coli that is sensitive to ceftriaxone - Will continue ceftriaxone but increase to 2 g to cover for pneumonia as well - Patient is showing signs of urinary retention so we will give patient a Benitez and will need outpatient urology follow-up - Patient is already on Flomax will increase from 0.4-0.8 Acute hypoxia on chronic hypoxic respiratory failure secondary to acute community acquired pneumonia - Patient at baseline is on 2 L of oxygen - Oxygen has been uptitrated to 4 L - CTA of the chest performed and is negative for PE but does show infiltrate - Check respiratory viral panel - Check COVID - Increase ceftriaxone from 1 g to 2 g daily and add azithromycin - Check strep pneumo and Legionella antigens - Check sputum culture if patient able to produce - Continue pulmonary toilet with scheduled and as needed nebulizers - Add Mucinex 1200 p.o. twice daily - Add incentive spirometer and Pep therapy Acute hyponatremia - Resolved Generalized weakness and debility - PT/OT is following - Current plan is for skilled placement at discharge at [facility] with transition to [place] for assisted living Severe malnutrition - Patient markedly cachectic - Dietitian is following - Patient already is on mirtazapine at night that should help stimulate appetite - Continue supplements as ordered Leukocytosis - Secondary to the above - Continue antibiotics as ordered - Repeat lab in a.m. Urinary retention secondary to BPH with obstruction - Continue Flomax but increased to 0.8 from 0.4 - Place Benitez as patient has about 800 in his bladder with the inability to void COPD - Continue home inhalers - Nebulizers as ordered - Patient is chronically oxygen dependent as noted above Restless leg syndrome - Continue home ropinirole Glaucoma - Continue eyedrops GERD - Continue home PPI Anxiety/depression - Continue home Wellbutrin - Continue home mirtazapine - Continue home citalopram Tobacco abuse - Recommend cessation - Nicotine patch available DVT prophylaxis - Continue subcu Lovenox 30 daily CODE STATUS - DNR CCA with no intubation Charges/Coding Visit Charges Inpatient E&M: 40359 Subs Hosp L3
[2024-08-19] MEDS: Ipratropium/Albuterol Sulfate 3 ML AMPUL.NEB INHALATION ×3 (07:17→19:27)
[2024-08-19] MEDS: Budesonide Respules 0.5 MG/2 ML AMPUL.NEB. INHALATION ×2 (07:18→19:27)
[2024-08-19 08:08] LABS: Pro- Brain NATRIURETIC PEPTIDE 945 pg/mL (<=1800)
[2024-08-19] MEDS: Menthol/Lanolin/Calamine/Znox 113 GM Tube 1 APPLIC TOPICAL ×2 (09:09→21:21)
[2024-08-19] MEDS: Enoxaparin 40 MG/0.4 ML Syringe SC (09:09)
[2024-08-19] MEDS: Primidone 50 MG Tablet PO ×2 (09:09→21:21)
[2024-08-19] MEDS: buPROPion (SR) 150 MG Tablet.SA PO ×2 (09:09→21:21)
[2024-08-19] MEDS: Pantoprazole Sodium 40 MG Tablet PO ×2 (09:09→21:21)
[2024-08-19] MEDS: Citalopram 40 MG TABLET PO (09:09)
[2024-08-19] MEDS: Ceftriaxone 2 GM in 0.9% Normal Saline (50mL MB+) 50 ML IV (10:27)
[2024-08-19] MEDS: 0.9% Saline Lock 10 ML Syringe IV (10:27)
[2024-08-19] MEDS: Azithromycin 500 MG in 0.9% Normal Saline (250mL Bag) 250 ML 255 MG IV (11:39)
--- NOTE | 2024-08-19 13:39 | CASEMGMT ---
Social Work- SW met with pt, pt , and pt [id number] to discuss advanced care planning. SW introduced self and role; pt agreeable to meet. SW provided education and answered questions prior to completion of document. SW provided copies of documents for agents tp pt along with original document. SW placed a copy in pt chart and also in HIM for scan into electronic records. Pt reports no other needs at this time. Tsiuhg-[id number] Helen added to contacts, pt contacts updated. SW remains available to follow for discharge planning needs. Pt plans to return home with ; currently has HHC multiple times per week, pt would be agreeable to hhc as well. GISELLE Garcia
--- NOTE | 2024-08-19 14:28 | CASEMGMT ---
DUDLEY GUEVARA into pt room to discuss dc planning, pt and sister in law present. Pt agreeable to discussion with family in room. Pt currently has a private hire aide 3x/wk. Pt has recently had skilled care through [facility]. Confirmed that pt does not have a FWW at home. Pt and family are trying to get pt moved to [place] by the end of the month but they do not have family or friends available to assist in the move so they do not think this will happen by the end of the month. Pt and are both limited in the moving that they can do. Discussed the plan in the meantime prior to [place], pt states that she does not feel she can manage pt at home as she has difficulties herself. Pt states she has been in [facility] before and would like pt to go there for s/t rehab prior to moving into [place]. Pt jocy agrees. Pt is not completely on board with this plan at this time. Pt will see how he does tomorrow with therapy and how he feels. DUDLEY GUEVARA or HERMAN to check back on decision. All in agreement with this plan.
[2024-08-19] MEDS: Tamsulosin HCl 0.4 MG Capsule PO (14:41)
[2024-08-19] MEDS: Acetaminophen 325 MG Tablet 650 MG PO (14:42)
[2024-08-19] MEDS: Pramipexole Di-HCl 0.5 MG Tablet PO ×2 (15:56→21:20)
[2024-08-19] MEDS: Tamsulosin HCl 0.4 MG Capsule 0.8 MG PO (21:19)
[2024-08-19] MEDS: guaiFENesin 1,200 MG Tablet 1200 MG PO (21:20)
[2024-08-19] MEDS: Mirtazapine 15 MG Tablet 7.5 MG PO (21:20)
[2024-08-19] MEDS: Latanoprost 0.005% 1 Bottle 1 DRP OPHTHALMIC (21:21)
[2024-08-20] VITALS (8 sets, daily range): BP systolic 92–139; BP diastolic 45–79; PULSE 71–82; RESP 15–22; TEMP 36.7–37.2; O2SAT 90–95
[2024-08-20] MEDS: Acetaminophen 325 MG Tablet 650 MG PO (03:13)
[2024-08-20 04:34] LABS: Absolute Neutrophil Count 10.8 X10^3/uL (2.0-7.7); Basophil# 0.01 X10^3/uL; Basophil% 0.1 % (0-1); Eosinophil# 0.03 X10^3/uL; Eosinophils% 0.2 % (0-5); Hematocrit 33.1 % (40-54); Hemoglobin 11.3 g/dL (13.0-16.5); Lymphocyte % 6.5 % (19-41); Mean Corp Hgb Conc 34.1 g/dL (32-36); Mean Corpuscular Hgb 34.6 pg (27.0-32.0); Mean Corpuscular Volume 101.2 fL (80-94); Mean Platelet Vol. 9.5 fl (6.2-12.0); Monocyte# 0.73 X10^3/uL; Monocyte% 5.9 % (0-10); NRBC Flagged by Analyzer 0 % (0-5); Neutrophil # 10.77 X10^3/uL (2.7-7.7); Neutrophil % 86.9 % (47-70); Platelet Count 216 K/mm3 (150-450); RBC Distribution Width CV 14.3 % (11.6-14.6); RBC Distribution Width SD 53.5 fl (35.1-43.9); Red Blood Count 3.27 M/mm3 (4.6-6.2); White Blood Count 12.4 K/mm3 (4.4-11.0)
[2024-08-20] MEDS: Dorzolamide 2% 10ml Bottle 1 DRP OPHTHALMIC ×3 (05:03→21:16)
[2024-08-20 06:36] LABS: Magnesium 1.8 mg/dL (1.5-2.2); Thyroid Stim Hormone (TSH) 0.655 uIU/mL (0.300-4.200)
[2024-08-20 06:44] LABS: ALB/GLOB Ratio 0.8 RATIO (0.9-2.4); AST(SGOT) 24 U/L (<=37); Alanine Aminotransfer ALT/SGPT 18 U/L (<=46); Albumin, Serum 2.4 g/dL (3.4-4.8); Alkaline Phosphatase 76 U/L (40-129); Anion Gap 8 (5-15); BUN 17 mg/dL (4-19); BUN/Creat Ratio 27.9 RATIO (10-20); Calcium,Total 8.2 mg/dL (7.6-11.0); Carbon Dioxide 27.4 mmol/L (21.0-32.0); Chloride 97 mmol/L (98-108); Creatinine, Serum 0.61 mg/dL (0.70-1.20); EST Glomerular Filtration Rate 99 (>60); Estimated Creatinine Clearance 55.78 ml/min (50-250); Glucose 115 mg/dL (70-99); Potassium 3.8 mmol/L (3.3-5.1); Protein, Total 5.4 g/dL (5.9-8.4); Sodium Level 132 mmol/L (133-145); Total Bilirubin < 0.15 mg/dL (0.00-1.30)
[2024-08-20] MEDS: Budesonide Respules 0.5 MG/2 ML AMPUL.NEB. INHALATION ×2 (06:44→20:30)
[2024-08-20] MEDS: Ipratropium/Albuterol Sulfate 3 ML AMPUL.NEB INHALATION ×3 (06:44→20:30)
--- NOTE | 2024-08-20 07:18 | PN.HOSP_ITS ---
Reason for Visit Reason for Visit: Weakness Subjective Subjective No issues overnight. Patient remains on 4 L nasal cannula. States he wears 2.5 L at home however his prescribed amount is 2 L. Did have urinary retention for over 800 cc so Benitez was placed. Flomax was increased however will likely leave Benitez at discharge as I am suspicious that he may have retention issues that have elicited his urinary tract infection. Will need follow-up with urology after discharge. This was discussed with patient. Objective Data Objective Data Vital Signs: Vital Signs Temp Pulse Resp BP Pulse Ox O2 Del Method O2 Flow Rate 98.6 F 74 22 H 113/63 90 Nasal Cannula 4 08/20/24 03:00 08/20/24 06:44 08/20/24 06:44 08/20/24 03:00 08/20/24 06:44 08/20/24 06:44 08/20/24 06:44 Oxygen Flow Rate (L/min) 4 Oxygen Delivery Method Nasal Cannula Weight: 50.2 kg Body Mass Index (BMI) 16.3 Intake & Output: Intake and Output for Last 24 Hours 08/18/24 08/19/24 08/20/24 23:59 23:59 23:59 Intake Total 850 / 850 1305 / 1405 100 / 100 Output Total 100 / 100 875 / 1075 350 / 350 Balance 750 / 750 430 / 330 -250 / -250 Lab / Micro Data 08/20/24 04:04 08/20/24 04:04 Labs: Laboratory Results - last 24 hr 08/19/24 04:23: NT pro BNP II 945 08/20/24 04:04: WBC 12.4 H, RBC 3.27 L, Hgb 11.3 L, Hct 33.1 L, MCV 101.2 H, MCH 34.6 H, MCHC 34.1, RDW Std Deviation 53.5 H, RDW Coeff of Sulema 14.3, Plt Count 216, MPV 9.5, Immature Gran % (Auto) 0.400, Neut % (Auto) 86.9 H, Lymph % (Auto) 6.5 L, [place] % (Auto) 5.9, Eos % (Auto) 0.2, Baso % (Auto) 0.1, Absolute Neuts (auto) 10.8 H, Absolute Lymphs (auto) 0.80 L, Nucleated RBC % 0, Sodium 132 L, Potassium 3.8, Chloride 97 L, Carbon Dioxide 27.4, Anion Gap 8, BUN 17, C reatinine 0.61 L, Estim Creat Clear Calc 55.78, Est GFR (MDRD) Non-Af 99, B UN/Creatinine Ratio 27.9 H, Glucose 115 H, Calcium 8.2, Phosphorus 3.0, Magnesium 1.8, Total Bilirubin < 0.15, AST 24, ALT 18, Alkaline Phosphatase 76, Total Protein 5.4 L, Albumin 2.4 L, Globulin 3.0, Albumin/Globulin Ratio 0.8 L, TSH 0.655 Micro: Microbiology 08/19/24 09:25 Sputum, Expectorated/Coughed Gram Stain - Final 08/19/24 07:20 Mucosa - Nasopharyngeal Respiratory Panel (PCR) - Final 08/19/24 08:20 Nasal Secretion SARS-CoV-2 Antigen (Rapid) - Final Radiography Diagnostic Testing: Radiology Impression Chest CTA 08/19/24 07:12 IMPRESSION: There is no visible pulmonary embolus. Lung volumes are increased. Emphysema is present, most severe in the upper lung perez. There is segmental consolidation in the medial left lung base, likely acute pneumonia. Follow-up is recommended. There is a 1.5 cm pleural effusion on the right and left. Reading [facility] Physical Exam Const alert and no apparent distress; Negative for average body habitus, healthy appearing or well nourished Constitutional Narrative: Cachectic appearing, older, white male, sitting up in bed, appears older than stated age, is quite frail for his age, patient oriented x 3 today HEENT head/scalp atraumatic and moist oral mucous membranes HEENT Narrative: Dentition is poor, Mallampati is 1, no thrush present Resp normal respiratory effort, no retractions, no use of accessory muscles and clear to auscultation bilaterally Resp Narrative: Markedly diminished diffusely but no adventitious sounds noted Auscultation: Negative for crackles, rhonchi or wheezes Cardio regular rate, regular rhythm, S1 normal heart sound, S2 normal heart sound, no murmurs, no rub, no gallops and no clicks GI normal to inspection, nondistended, normoactive bowel sounds, soft to palpation and non-tender GI Narrative: Scaphoid abdomen Extremity no clubbing, cyanosis or edema Extremity Narrative: Markedly decreased lean muscle mass Neuro oriented x3, moves all extremities and no focal motor deficits Neuro Narrative: Severe generalized weakness Sensorium / Orientation: awake Speech: speech normal Psych affect normal Psych Narrative: Eye contact is good, patient interacts appropriately Assessment & Plan Assessment/Plan (1) E. coli UTI: (2) Leukocytosis: (3) Acute hyponatremia: (4) Generalized weakness: PLAN: Plan E. coli UTI-complicated -If 3 of 10 for antibiotics -Will continue ceftriaxone for now -Suspect this may be complicated by urinary retention - Benitez placed and will continue at discharge with outpatient follow-up to urology - White count is trending down Acute hypoxia on chronic hypoxic respiratory failure secondary to acute community acquired pneumonia - Patient at baseline is on 2 L of oxygen however patient states he wears 2.5 - Oxygen has been uptitrated to 4 L - CTA of the chest performed and is negative for PE but does show infiltrate in the left base and pretty significant emphysematous changes - Preliminary sputum culture is respiratory nohemi -Will continue ceftriaxone 2 g and discontinue azithromycin - Strep pneumo and Legionella antigens are negative - Continue pulmonary toilet with scheduled and as needed nebulizers -Continue Mucinex 1200 p.o. 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 - Continue Flomax 0.8 mg nightly -Continue Benitez - Plans for outpatient urology referral after discharge and will leave Benitez in place COPD - Continue home inhalers - Nebulizers as ordered - Patient is chronically oxygen dependent as noted above Restless leg syndrome - Continue home ropinirole Glaucoma - Continue eyedrops GERD - Continue home PPI Anxiety/depression - Continue home Wellbutrin - Continue home mirtazapine - Continue home citalopram Tobacco abuse - Recommend cessation - Nicotine patch available DVT prophylaxis - Continue subcu Lovenox 30 daily CODE STATUS - DNR CCA with no intubation Charges/Coding Visit Charges Inpatient E&M: 83414 Subs Hosp L2
[2024-08-20] MEDS: Ceftriaxone 2 GM in 0.9% Normal Saline (50mL MB+) 50 ML IV (10:04)
[2024-08-20] MEDS: 0.9% Saline Lock 10 ML Syringe IV ×3 (10:06→13:23)
[2024-08-20] MEDS: Ensure Plus High Protein 120 ML LIQUID PO (10:09)
[2024-08-20] MEDS: Enoxaparin 40 MG/0.4 ML Syringe SC (10:16)
[2024-08-20] MEDS: Menthol/Lanolin/Calamine/Znox 113 GM Tube 1 APPLIC TOPICAL ×2 (10:16→21:17)
[2024-08-20] MEDS: guaiFENesin 1,200 MG Tablet 1200 MG PO ×2 (10:17→21:16)
[2024-08-20] MEDS: Citalopram 40 MG TABLET PO (10:17)
[2024-08-20] MEDS: Pantoprazole Sodium 40 MG Tablet PO ×2 (10:17→21:16)
[2024-08-20] MEDS: buPROPion (SR) 150 MG Tablet.SA PO ×2 (10:17→21:16)
[2024-08-20] MEDS: Primidone 50 MG Tablet PO ×2 (10:18→21:18)
--- NOTE | 2024-08-20 11:07 | CASEMGMT ---
DUDLEY CM into pt room, pt lying in bed with eyes closed on oxygen. Pt states he is very tired. Discussed how therapy went and pt states I guess I need to go to [facility]. Pt states he prefers to go home but I don't want to be a burden to my . Pt denies the need for a list of options for other facilities. Pt denies any questions at this time. Pt states he just wants to rest. Updated SW.
--- NOTE | 2024-08-20 11:32 | CASEMGMT ---
Addendum entered by Airam Marie 08/20/24 11:50: Social Work [facility] is able to accept pt tomorrow 08/21. Pt notified and is agreeable. SW attempted to call pt with no answer and VM not set up. Plan: [facility], on [address] Original Note: Social Work RNCM notified SW that pt would like placement at [facility]. Referral sent to [facility] via [facility]. SW will await determination of acceptance. GISELLE Armando
[2024-08-20] MEDS: Azithromycin 500 MG in 0.9% Normal Saline (250mL Bag) 250 ML 255 MG IV (11:39)
--- NOTE | 2024-08-20 14:19 | CASEMGMT ---
Social Work Pt and sister in law present with pt. SW met with family and informed that [facility] can accept and pt may be ready for dc to [facility] tomorrow if medically ready. Pt and family agreeable. Plan: [facility], can accept pt on [address]
[2024-08-20] MEDS: Latanoprost 0.005% 1 Bottle 1 DRP OPHTHALMIC (21:15)
[2024-08-20] MEDS: Tamsulosin HCl 0.4 MG Capsule 0.8 MG PO (21:16)
[2024-08-20] MEDS: Pramipexole Di-HCl 0.5 MG Tablet PO (21:16)
[2024-08-20] MEDS: Mirtazapine 15 MG Tablet 7.5 MG PO (21:16)
[2024-08-21 04:04] VITALS: BP 124/82; PULSE 70; RESP 18; TEMP 36.4; O2SAT 93
[2024-08-21] MEDS: Acetaminophen 325 MG Tablet 650 MG PO (04:11)
[2024-08-21 05:41] LABS: Absolute Lymphocyte Count 0.79 X10^3/uL (0.83-4.51); Absolute Neutrophil Count 6.2 X10^3/uL (2.0-7.7); Basophil# 0.02 X10^3/uL; Basophil% 0.3 % (0-1); Eosinophil# 0.08 X10^3/uL; Hematocrit 33.4 % (40-54); Hemoglobin 11.5 g/dL (13.0-16.5); Lymphocyte # 0.79 X10^3/ul (0.83-4.51); Lymphocyte % 10.2 % (19-41); Mean Corp Hgb Conc 34.4 g/dL (32-36); Mean Corpuscular Volume 101.5 fL (80-94); Mean Platelet Vol. 9.6 fl (6.2-12.0); Monocyte# 0.63 X10^3/uL; Monocyte% 8.1 % (0-10); NRBC Flagged by Analyzer 0 % (0-5); Neutrophil # 6.22 X10^3/uL (2.7-7.7); Platelet Count 222 K/mm3 (150-450); RBC Distribution Width CV 13.9 % (11.6-14.6); Red Blood Count 3.29 M/mm3 (4.6-6.2); White Blood Count 7.8 K/mm3 (4.4-11.0)
[2024-08-21] MEDS: Dorzolamide 2% 10ml Bottle 1 DRP OPHTHALMIC ×3 (05:55→21:14)
[2024-08-21 06:21] LABS: Anion Gap 7 (5-15); BUN 14 mg/dL (4-19); BUN/Creat Ratio 22.5 RATIO (10-20); Calcium,Total 8.1 mg/dL (7.6-11.0); Carbon Dioxide 29.8 mmol/L (21.0-32.0); Chloride 96 mmol/L (98-108); Creatinine, Serum 0.61 mg/dL (0.70-1.20); EST Glomerular Filtration Rate 99 (>60); Estimated Creatinine Clearance 55.78 ml/min (50-250); Glucose 98 mg/dL (70-99); Potassium 4.1 mmol/L (3.3-5.1); Sodium Level 133 mmol/L (133-145)
[2024-08-21 07:52] VITALS: PULSE 74; RESP 18; O2SAT 97
[2024-08-21] MEDS: Ipratropium/Albuterol Sulfate 3 ML AMPUL.NEB INHALATION (07:54)
[2024-08-21] MEDS: Budesonide Respules 0.5 MG/2 ML AMPUL.NEB. INHALATION (07:54)
--- NOTE | 2024-08-21 07:56 | TREXTCAR_ITS ---
Diet Diet Order/Speech Therapy: INPATIENT Hospital Diet / Speech Therapy Order(s) 08/18/24 16:47 Diet: Regular - General Food consistency:: Regular Liquid Consistency:: Regular/Thin Routine Orders/Code Status Suppository Frequency: Daily PRN Routine Lab Work: CBC (5 to 7 days) and BMP (5 to 7 days) Code Status: DNRCC-A (No ET tube) DC O2, CPAP, BIPAP needs Home O2 Discharge instructions: Yes Type of respiratory needs?: Oxygen Oxygen frequency: Continuous Continuous oxygen liters per minute: 2-3 Suggestions for Active Care Change Position every (hours): 2 Hours to sit in a chair: 3 Times a day to sit in chair: 3 Therapies Weight Bearing: Full weight bearing Physical Therapy: Eval and Treat Occupational Therapy: Eval and Treat Speech Therapy: Eval and Treat Problem/Diagnosis (1) E. coli UTI: Status: Acute Code(s): N39.0 - Urinary tract infection, site not specified; B96.20 - Unspecified Escherichia coli [E. coli] as the cause of diseases classified elsewhere (2) Leukocytosis: Status: Acute Code(s): D72.829 - Elevated white blood cell count, unspecified (3) Acute hyponatremia: Status: Acute Code(s): E87.1 - Hypo-osmolality and hyponatremia (4) Generalized weakness: Status: Acute Code(s): R53.1 - Weakness Allergies/Procedures Done in Hospital Allergies bee venom protein (honey bee) Allergy (Verified 08/18/24 11:08) Swelling fire ant Allergy (Verified 08/18/24 11:08) Other tetanus and diphtheria toxoids Allergy (Verified 08/18/24 11:08) Swelling codeine Adverse Reaction (Verified 08/18/24 11:08) Upset Stomach Procedures: - (CTA chest) Type of Care/Length of Stay Estimated LOS: Convalescent Care Less Than 30 days Type of Care Needed: Skilled Rehab Potential: Good Prognosis: Fair Additional Orders/Day of Discharge Day of Discharge: 08/21/24 Dietary and Speech Recommendations Dietitian Recommendations/Changes: Continue Regular diet to optimize oral in takes. Continue 120mL ensure plus high protein TID with medpass to provide supplemental energy. Follow Up Care Please follow up with your Primary Care Physician in: Within 1 week after discharge from skilled facility Please Follow Up With: Bruce Pisano MD When: Within the next week Discharge Plan Admission Admit Date/Time: 08/18/24 14:23 Attending Provider: Virginia Young Primary Care Provider: Damon Mayes Chi Consulting Providers: Fatuma Araujo Discharge Orders/Prescriptions Prescriptions: No Action bupropion HCl 150 mg tablet sustained-release 12 hr 150 mg PO Q12H Patient Comments: take 1 tablet by mouth twice a day latanoprost 0.005 % drops 1 drp ophthalmic (eye) QHS Patient Comments: INSTILL 1 DROP INTO BOTH EYES AT BEDTIME primidone 50 mg tablet 50 mg PO Q12H tamsulosin 0.4 mg capsule 0.4 mg PO Q24H albuterol sulfate 90 mcg/actuation HFA aerosol inhaler 2 inh INHALATION Q4H PRN (Reason: SOB) Patient Comments: INHALE 2 PUFFS BY MOUTH AND INTO THE LUNGS EVERY 4 HOURS pantoprazole [Protonix] 40 mg tablet,delayed release (DR/EC) 40 mg PO BID Qty: 60 0RF ropinirole 1 mg tablet 1 mg PO QHS citalopram 40 mg tablet 40 mg PO DAILY dorzolamide 2 % drops 1 drp ophthalmic (eye) TID Rx Instructions: BOTH EYES mirtazapine 7.5 mg tablet 7.5 mg PO QHS Breztri Aerosphere 160-9-4.8 mcg/actuation HFA aerosol inhaler 2 inh inhalation BID PRN Referrals / Follow Up: Damon Mayes Chi, MD [Primary Care Provider] -
--- NOTE | 2024-08-21 07:56 | DS.PCM_ITS ---
Providers Date of Admission: 08/18/24 Date of Discharge: 08/21/24 Primary Care Physician: Dr. Damon Mayes MD Reason For Visit: OUTPAITENT UTI THERAPY FAILED Diagnosis Discharge Diagnosis (1) E. coli UTI: Status: Acute Code(s): N39.0 - Urinary tract infection, site not specified; B96.20 - Unspecified Escherichia coli [E. coli] as the cause of diseases classified elsewhere (2) Leukocytosis: Status: Acute Code(s): D72.829 - Elevated white blood cell count, unspecified (3) Acute hyponatremia: Status: Acute Code(s): E87.1 - Hypo-osmolality and hyponatremia (4) Generalized weakness: Status: Acute Code(s): R53.1 - Weakness Medications at Discharge Home Medications bupropion HCl 150 mg tablet,12 hr sustained-release 150 mg PO Q12H 11/08/22 latanoprost 0.005 % eye drops 1 drp ophthalmic (eye) QHS 11/08/22 primidone 50 mg tablet 50 mg PO Q12H 11/08/22 pantoprazole 40 mg tablet,delayed release (Protonix) 40 mg PO BID #60 tabs 11/13/22 budesonide 160 mcg-glycopyr 9 mcg-formot 4.8 mcg/actuation HFA inhaler (Breztri Aerosphere) 2 inh inhalation BID PRN 08/18/24 citalopram 40 mg tablet 40 mg PO DAILY 08/18/24 dorzolamide 2 % eye drops 1 drp ophthalmic (eye) TID 08/18/24 mirtazapine 7.5 mg tablet 7.5 mg PO QHS 08/18/24 ropinirole 1 mg tablet 1 mg PO QHS 08/18/24 acetaminophen 325 mg tablet 650 mg (2 x 325 mg) PO Q6H PRN PRN Pain 1-10 Or Fever >100.7 #0 tabs 08/21/24 albuterol sulfate 2.5 mg/3 mL (0.083 %) solution for nebulization 2.5 mg (3 mL) inhalation Q2H PRN PRN Sob &/Or Wheezing #0 mL 08/21/24 food supplemt, lactose-reduced 0.08 gram-1.5 kcal/mL oral liquid (Ensure Plus High Protein) 120 ml PO TIDCM #0 mL 08/21/24 guaifenesin 1,200 mg tablet, extended release 12 hr (Mucus Relief ER) 1,200 mg PO BID #0 tabs 08/21/24 ipratropium 0.5 mg-albuterol 3 mg (2.5 mg base)/3 mL nebulization soln 3 ml inhalation Q6H #90 mL 08/21/24 levofloxacin 750 mg tablet 750 mg PO DAILY #4 tabs 08/21/24 melatonin 3 mg tablet 10 mg (3.3333 x 3 mg) PO QHS PRN PRN Insomnia #0 tabs 08/21/24 menthol 0.44 %-zinc oxide 20.6 % topical ointment (Calmoseptine) 1 applic topical BID #0 grams 08/21/24 nicotine 14 mg/24 hr daily transdermal patch 14 mg transdermal DAILY #0 ea 08/21/24 sennosides 8.6 mg-docusate sodium 50 mg tablet (Stimulant Laxative Plus) 2 tab PO BID PRN PRN Constipation #0 tabs 08/21/24 tamsulosin 0.4 mg capsule 0.8 mg (2 x 0.4 mg) PO Q24@2200 #0 caps 08/21/24 Hospital Course Procedures EKG and - (CTA chest) Summary of Care Provided Minutes Spent on Discharge: 39 Hospital Course: Mr. Nuñez is a 74-year-old male who presented to the emergency department at [facility] on 08/18/2024 with a chief complaint of dysuria and generalized weakness. Patient was seen in the emergency department the day prior to presentation and found to have a urinary tract infection. He was given 1 dose of IV Rocephin in the emergency department and discharged home on Keflex however overnight he had urinary incontinence and was too weak to get out of bed so the patient was brought back to the emergency department. The patient reported that since he was evaluated the emergency department the day prior to admission he had worsening burning with urination and generalized weakness and had 1 episode of urinary incontinence. He denied abdominal pain, nausea, vomiting and had no fevers at home. At baseline he wears 2 to 3 L of oxygen. He was admitted to the medical floor maintained on ceftriaxone. Physical and Occupational Therapy were consulted. He was noted to be slightly more hypoxemic with oxygen demand up to 4 L so a CTA of his chest was performed. It was negative for PE however did show a left lower lobe infiltrate. Antibiotics were broadened to add azithromycin and increase his ceftriaxone dose to 2 g daily. Sputum culture was obtained and showed normal oral nohemi. Urine culture was significant for E. coli. He had urinary retention and I suspect his urinary tract infection was related to urinary retention. He required Benitez placement and we did increase his Flomax dose from 0.4-0.8. He will maintain a Benitez at the time of discharge and follow-up as an outpatient with Dr. Pisano within a week after discharge to be considered for Benitez removal. He may need urodynamic studies to assess for further retention. He was evaluated by physical Occupational Therapy during his hospitalization and they deemed him appropriate for ongoing rehab. Needs were discussed with family and they elected to transition to SNF in [facility] at the time of discharge until assisted-living is available at [place]. Patient was evaluated by the dietitian during his hospital stay and given his severe cachexia and weight loss he was diagnosed with severe malnutrition and started on supplements. He is also on a liberal diet. His leukocytosis resolved and he was maintained on 4 L of oxygen with aerosols during his hospital course. He was able to be discharged in stable condition on 08/21/2024. He will need follow-up with Dr. Pisano 1 week and his primary care physician within 1 week after discharge from the intermediate facility. Discharge diagnoses: E. 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 Const alert, oriented x3, no apparent distress and no limitations; Negative for average body habitus, healthy appearing or well nourished Constitutional Narrative: Cachectic and frail appearing, older, white male, sitting up in bed, appears older than stated age General Appearance: cooperative, comfortable, well kempt and well developed Exam Limitations: no limitations Nutritional Appearance: cachectic HEENT normocephalic, head/scalp atraumatic and moist oral mucous membranes HEENT Narrative: Mallampati is 1, no thrush, dentures in place, mild to moderate hearing loss Eyes conjunctivae normal Eyes Narrative: No scleral icterus Neck supple Neck Narrative: Trachea midline Resp normal respiratory effort, no retractions, no use of accessory muscles and clear to auscultation bilaterally Resp Narrative: Markedly diminished diffusely but no adventitious sounds noted Auscultation: Negative for crackles, rhonchi or wheezes Cardio regular rate, regular rhythm, S1 normal heart sound, S2 normal heart sound, no murmurs, no rub, no gallops and no clicks GI normal to inspection, nondistended, normoactive bowel sounds, soft to palpation and non-tender GI Narrative: Scaphoid abdomen Extremity no clubbing, cyanosis or edema Extremity Narrative: Markedly decreased lean muscle mass Skin no jaundice, no petechiae and no mottling Neuro oriented x3, moves all extremities and no focal motor deficits Neuro Narrative: Severe generalized weakness with Proximal musculature being weaker of the distal Speech: speech normal Psych affect normal Psych Narrative: Eye contact is good, patient interacts appropriately Weight / BMI Weight Weight: 50.2 kg Body Mass Index (BMI) 16.3 ABG / Lab / Microbiology Data 08/21/24 05:21 08/21/24 05:21 Laboratory: Laboratory Results - last 24 hr 08/21/24 05:21: WBC 7.8, RBC 3.29 L, Hgb 11.5 L, Hct 33.4 L, MCV 101.5 H, MCH 35.0 H, MCHC 34.4, RDW Std Deviation 52.0 H, RDW Coeff of Sulema 13.9, Plt Count 222, MPV 9.6, Immature Gran % (Auto) 0.400, Neut % (Auto) 80.0 H, Lymph % (Auto) 10.2 L, [place] % (Auto) 8.1, Eos % (Auto) 1.0, Baso % (Auto) 0.3, Absolute Neuts (auto) 6.2, Absolute Lymphs (auto) 0.79 L, Nucleated RBC % 0, Sodium 133, Potassium 4.1, Chloride 96 L, Carbon Dioxide 29.8, Anion Gap 7, BUN 14, C reatinine 0.61 L, Estim Creat Clear Calc 55.78, Est GFR (MDRD) Non-Af 99, B UN/Creatinine Ratio 22.5 H, Glucose 98, Calcium 8.1 Microbiology: Microbiology 08/19/24 09:25 Sputum, Expectorated/Coughed Gram Stain - Final 08/19/24 09:25 Sputum, Expectorated/Coughed Respiratory Culture - Final Presumptive C albicans 08/19/24 10:24 Urine Catheter - Catheter Legionella Antigen - Final 08/19/24 10:24 Urine Catheter - Catheter Streptococcus pneumoniae Antigen (M - Final 08/19/24 07:20 Mucosa - Nasopharyngeal Respiratory Panel (PCR) - Final 08/19/24 08:20 Nasal Secretion SARS-CoV-2 Antigen (Rapid) - Final D/C Instructions DC O2, CPAP, BIPAP Needs Home O2 Discharge instructions: Yes Type of respiratory needs?: Oxygen Oxygen frequency: Continuous Continuous oxygen liters per minute: 2-4 DC home with Oxygen: Yes Home O2 MD Review: I have reviewed the oxygen testing, and the patient qualifies for home oxygen equipment and portability. The patient is mobile in the home and the community. Meaningful Use Info Meaningful Use Meaningful Use Diagnoses (Choose all that apply): None applicable Ischemic Stroke Statin Dosing Therapy Reference: STATIN DOSE THERAPY REFERENCE: * Patients > 75 years receive moderate or high dose statin therapy. * Patients 75 years or YOUNGER should receive HIGH intensity statin dose unless contraindicated. You will be required to document reason for non-treatment if statin daily dose does not meet guidelines. HIGH DOSE STATIN THERAPY DAILY Atorvastatin > than or = to 40 mg Rosuvastatin > than or = to 20 mg Amlodipine + Atorvastatin > than or = to 2.5/40 mg Ezetimibe + Simvastatin 10/80 mg Simvastatin 80mg Discharge Plan Admission Admit Date/Time: 08/18/24 14:23 Primary Reason for Your Visit: Dysuria/generalized weakness Attending Provider: Virginia Young Primary Care Provider: Damon Mayes Chi Consulting Providers: Fatuma Araujo Instructions Additional Instructions / Restrictions: 1. Benitez will need to be maintained until patient can follow-up with urology 2. Will need to complete antibiotics with next dose being due on 08/22/2024 Discharge Orders/Prescriptions Prescriptions: New guaifenesin [Mucus Relief ER] 1,200 mg Tablet Extended Release 12hr 1,200 mg PO BID Qty: 0 0RF acetaminophen 325 mg Tablet 650 mg PO Q6H PRN PRN (Reason: Pain 1-10 Or Fever >100.7) Qty: 0 0RF albuterol sulfate 2.5 mg /3 mL (0.083 %) Solution For Nebulization 2.5 mg inhalation Q2H PRN PRN (Reason: Sob &/Or Wheezing) Qty: 0 0RF nicotine 14 mg/24 hr Patch 24 Hour 14 mg transdermal DAILY Qty: 0 0RF Ensure Plus High Protein 0.08 gram-1.5 kcal/mL Liquid 120 ml PO TIDCM Qty: 0 0RF sennosides-docusate sodium [Stimulant Laxative Plus] 8.6-50 mg Tablet 2 tab PO BID PRN PRN (Reason: Constipation) Qty: 0 0RF tamsulosin 0.4 mg Capsule 0.8 mg PO Q24@2200 Qty: 0 0RF menthol-zinc oxide [Calmoseptine] 0.44-20.6 % Ointment 1 applic topical BID Qty: 0 0RF Protocol: *Topical Application Instructions APPLICATION INSTRUCTIONS: apply to affected area melatonin 3 mg Tablet 10 mg PO QHS PRN PRN (Reason: Insomnia) Qty: 0 0RF ipratropium-albuterol 0.5 mg-3 mg(2.5 mg base)/3 mL solution for nebulization 3 ml inhalation Q6H Qty: 90 0RF levofloxacin 750 mg tablet 750 mg PO DAILY Qty: 4 0RF Continued bupropion HCl 150 mg tablet sustained-release 12 hr 150 mg PO Q12H Patient Comments: take 1 tablet by mouth twice a day latanoprost 0.005 % drops 1 drp ophthalmic (eye) QHS Patient Comments: INSTILL 1 DROP INTO BOTH EYES AT BEDTIME primidone 50 mg tablet 50 mg PO Q12H pantoprazole [Protonix] 40 mg tablet,delayed release (DR/EC) 40 mg PO BID Qty: 60 0RF ropinirole 1 mg tablet 1 mg PO QHS citalopram 40 mg tablet 40 mg PO DAILY dorzolamide 2 % drops 1 drp ophthalmic (eye) TID Rx Instructions: BOTH EYES mirtazapine 7.5 mg tablet 7.5 mg PO QHS Breztri Aerosphere 160-9-4.8 mcg/actuation HFA aerosol inhaler 2 inh inhalation BID PRN Discontinued tamsulosin 0.4 mg capsule 0.4 mg PO Q24H albuterol sulfate 90 mcg/actuation HFA aerosol inhaler 2 inh INHALATION Q4H PRN (Reason: SOB) Patient Comments: INHALE 2 PUFFS BY MOUTH AND INTO THE LUNGS EVERY 4 HOURS Referrals / Follow Up: Bruce Pisano MD [Med Staff - Active Staff] - Within 1 Week (For urinary retention) Damon Mayes Chi, MD [Primary Care Provider] - Within 1 Week (After discharge from skilled facility) Disposition Disposition (needs filled in before D/C Order can be placed): [facility] Charges/Coding Visit Charges Inpatient E&M: 98974 Disch Hosp >30min
[2024-08-21 07:59] VITALS: BP 141/72; PULSE 69; RESP 18; TEMP 37.7; O2SAT 97
[2024-08-21] MEDS: Ceftriaxone 2 GM in 0.9% Normal Saline (50mL MB+) 50 ML IV (09:59)
[2024-08-21] MEDS: Ensure Plus High Protein 120 ML LIQUID PO ×3 (09:59→17:51)
[2024-08-21] MEDS: Menthol/Lanolin/Calamine/Znox 113 GM Tube 1 APPLIC TOPICAL ×2 (10:00→21:13)
[2024-08-21] MEDS: 0.9% Saline Lock 10 ML Syringe IV (10:00)
[2024-08-21] MEDS: Citalopram 40 MG TABLET PO (10:01)
[2024-08-21] MEDS: Enoxaparin 40 MG/0.4 ML Syringe SC (10:01)
[2024-08-21] MEDS: guaiFENesin 1,200 MG Tablet 1200 MG PO ×2 (10:02→21:12)
[2024-08-21] MEDS: Pantoprazole Sodium 40 MG Tablet PO ×2 (10:02→21:11)
[2024-08-21] MEDS: Primidone 50 MG Tablet PO ×2 (10:02→21:12)
[2024-08-21] MEDS: buPROPion (SR) 150 MG Tablet.SA PO ×2 (10:03→21:14)
[2024-08-21 14:11] VITALS: BP 125/59; PULSE 72; RESP 20; TEMP 37.1; O2SAT 95
--- NOTE | 2024-08-21 15:12 | CASEMGMT ---
DUDLEY CM into pt room to verify if pt has a cpap or not. Pt states he does not, he only has oxygen that he wears at home. Updated SW.
--- NOTE | 2024-08-21 16:22 | CASEMGMT ---
Discharge Planning Discharge orders, signed med list, and transport time sent to [facility]. Physicians will transport pt by wheelchair at 8p. Nursing, SW, pt, and his updated. Yadi Weber DC Planning Asst.
--- NOTE | 2024-08-21 16:24 | CASEMGMT ---
Social Work Per physician, pt is ready for discharge today. 7000 exemption form completed in [facility]. DC assistant manager bilingual updated and to complete discharge. Disposition: [facility], skilled level of care under convalescent stay GISELLE Armando
--- NOTE | 2024-08-21 19:04 | NURSING ---
Nurse to nurse report given to Shakira at [facility]. Advised of PU time of 1999.
[2024-08-21 19:50] VITALS: BP 148/81; PULSE 77; RESP 18; TEMP 37.2; O2SAT 94
[2024-08-21] MEDS: Tamsulosin HCl 0.4 MG Capsule 0.8 MG PO (21:11)
[2024-08-21] MEDS: Mirtazapine 15 MG Tablet 7.5 MG PO (21:12)
[2024-08-21] MEDS: Pramipexole Di-HCl 0.5 MG Tablet PO (21:12)
[2024-08-21] MEDS: Latanoprost 0.005% 1 Bottle 1 DRP OPHTHALMIC (21:13)
[2024-08-21 21:47] VITALS: BP 140/79; PULSE 72; RESP 18; TEMP 37.2; O2SAT 95
--- NOTE | 2024-08-21 22:06 | NURSING ---
pt d/c to [facility], pt stable. belongings with pt. 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
== END 2024-08-21 22:15 | disposition skilled nursing facility (03) | DRG 193 ==
LOC: ED 14:11 → MS3 14:26
PROVIDERS: Admitting Provider Internal Medicine; Emergency Provider Emergency Medicine; PCP Family Medicine Geriatric Medicine; Visit Provider Internal Medicine
DX: J18.9 Pneumonia, unspecified organism (principal); J96.21 Acute and chronic respiratory failure with hypoxia; E43 Unspecified severe protein-calorie malnutrition; E87.1 Hypo-osmolality and hyponatremia; J44.0 Chronic obstructive pulmonary disease with (acute) lower respiratory infection; N39.0 Urinary tract infection, site not specified; Z68.1 Body mass index [BMI] 19.9 or less, adult; N13.8 Other obstructive and reflux uropathy; E11.9 Type 2 diabetes mellitus without complications; B96.20 Unspecified Escherichia coli [E. coli] as the cause of diseases classified elsewhere; Z66 Do not resuscitate; G25.81 Restless legs syndrome; F32.A Depression, unspecified; F17.210 Nicotine dependence, cigarettes, uncomplicated; K21.9 Gastro-esophageal reflux disease without esophagitis; F41.9 Anxiety disorder, unspecified; G47.33 Obstructive sleep apnea (adult) (pediatric); D72.829 Elevated white blood cell count, unspecified; N40.1 Benign prostatic hyperplasia with lower urinary tract symptoms; R53.81 Other malaise; H40.9 Unspecified glaucoma; Z79.01 Long term (current) use of anticoagulants; R33.8 Other retention of urine; Z99.89 Dependence on other enabling machines and devices; R53.1 Weakness
CPT/HCPCS: 36415; 71275; 80048; 80053; 83605; 83735; 83880; 84100; 84443; 85025; 85610; 85730; 87070; 87205; 87449; 87633; 87811; 94640; 94668; 97162; 97166; 97530; 97535; 97802; 99285; Q9967; A4216; J0696